=== PATIENT | male | born 1980 | race Caucasian/White ===

== ENCOUNTER 2025-01-07 23:15 | Inpatient (IN) | payer MEDICARE, SELFPAY ==
[2025-01-07] VITALS (22 sets, daily range): BP systolic 74–119; BP diastolic 58–89; BMI 15.8
[2025-01-07 21:19] LABS: Glucose - Point of Care 99 mg/dl (70-99)
--- NOTE | 2025-01-07 21:23 | EDRN ---
Pt arrives from triage hypoxic in the 70s and very lethargic. Dr. Munguia at bedside, decision made by Dr. Munguia that it is best to intubate to protect pt airway. 20 of etomidate and 150 of succ given. 7.5 ett and 22.5 at the lip.
[2025-01-07 21:31] LABS: INR 0.89; PT 12.5 Sec (11.4-14.6)
[2025-01-07 21:32] LABS: APTT 36.2 Sec (23.4-35.0)
[2025-01-07 21:34] LABS: ALT (SGPT) < 10 U/L (0-50); AST (SGOT) 21 U/L (17-59); Albumin 3.5 g/dl (3.5-5.0); Alkaline Phosphatase 55 U/L (38-126); Blood Urea Nitrogen 30 mg/dl (9-20); Calcium 8.8 mg/dl (8.4-10.2); Carbon Dioxide 25 mmol/L (22-30); Chloride 93 mmol/L (98-107); Estimated Creatinine Clearance 67 ml/min; Glucose 97 mg/dl (70-99); Potassium 4.9 mmol/L (3.5-5.1); Sodium 126 mmol/L (135-145); Total Bilirubin 0.5 mg/dl (0.2-1.3); Total Protein 6.4 g/dl (6.3-8.2); eGFR > 60.00
--- NOTE | 2025-01-07 21:34 | ED.GENMED ---
History of Present Illness
General
Chief Complaint: Fever
Source: patient and family
Exam Limitations: altered mental status
Time Seen by Provider: 01/07/25 21:03
Nursing documentation reviewed up to this point in time: agreed with
History of Present Illness
History of Present Illness:
44-year-old male brought in through triage with father and 2 daughters patient and family visiting from [place] they have been sleeping at a campground for a few days patient has been sick for 3 days--here he is febrile hypoxic confused, combative
at times
Per the family he is a smoker, has seizure disorder, has not had seizures in many years they deny any drug overdose, though he does smoke marijuana
He was placed on supplemental oxygen, due to decreased mental status was intubated for airway protection
Past History
Past History
ED Past Medical History: Seizures
Social History
Tobacco: Smoker
Alcohol: None
Drug: Marijuana
Living: with family
Employment: Employed
Review of Systems
Review of Systems
Unable to obtain full review of systems at this time due to: due to acuity
Other source history: family
Phy Exam
Physical Exam
Physical Exam:
Physical Exam
General: Obtunded at times and agitated 44 male
Neck: No tongue bite, pupils 3-4 mm OU
Heart: Tachycardia
Lungs: Rhonchi left greater than
Abdomen: Nontender
Neuro: Confused, moves all extremities
Skin: no rash
Psychiatric: Agitated at times
Extremities: Cyanotic
Sepsis
Sepsis Screening
Sepsis Assessment: Sepsis
Sepsis Screen
Sepsis Screen: Sepsis
Date: 01/07/25
Time: 22:22
Course
Orders/Labs/Results
Orders:
Orders
01/07/25 21:09
Cardiac Monitoring- Treatment ONCE
IV Insert/Care/Rem.- Treatment PRN
Urinalysis Reflex To Culture Urgent
0.9% Sodium Chloride 1000 ml [Nss] 1,000 ml IV BOLUS
Ipratropium/Albuterol Sulfate [Duoneb] 3 ml INH R NOW STA
01/07/25 21:10
Electrocardiogram (*1) Urgent
Reason for Study: Other
Other Reason for Exam: sepsis
EKG- Treatment ONCE
CR Chest Portable - 1 View Urgent
Comment:
Reason For Exam: fever
Reason Study Needs to be Portable: Unable to Transport
01/07/25 21:12
Comprehensive Metabolic Panel Urgent
Depakane Urgent
Comment: ADD ON
Lactic Acid Q4H
Comment: CANCEL 2nd LACTIC ACID IF 1st LACTIC ACID IS LESS THAN 2
PTT Urgent
Prothrombin Time Urgent
Triglycerides Urgent
Blood Culture Q30M
LORIN Source: Blood/Venous
Specimen Description:
Blood Culture Q30M
LORIN Source: Blood/Venous
Specimen Description:
Influenza A+B Rapid Molecular Urgent
LORIN Source: Nasal Swab
Specimen Description:
01/07/25 21:18
Propofol 1,000,000 Mcg/100 ml [Diprivan] 1,000,000 mcg in 100 ml .ROUTE .STK-MED
Propofol [Diprivan] 20 ml .ROUTE .STK-MED
01/07/25 21:25
Piperacillin/Tazo 3.375 Gram [Zosyn] 3.375 gram in 50 ml IV NOW
01/07/25 21:27
Etomidate [Amidate 20 mg] 20 mg IV NOW STA
Succinylcholine Chloride [Anectine] 150 mg IV NOW STA
EEG [Rapid Point of Care EEG (ED/ICU ONLY)] Q1H
Indications for use:: Altered Mental Status
01/07/25 21:28
Gonzalez Placement- Treatment ONCE
Reason for insertion: I&O's Critical Care
01/07/25 21:29
Rectal Temp- Treatment ONCE
Drug Screen, Urine [Urine Drug Abuse Screen] Urgent
Urinalysis Reflex To Culture Urgent
Acetaminophen [Tylenol/Feverall] 650 mg RECTAL NOW STA
01/07/25 21:30
Propofol 1,000,000 Mcg/100 ml [Diprivan] 1,000,000 mcg in 100 ml IV PER PROTOCOL
Indication:: Deep Sedation
Begin Infusion:: Now
Goal:: RASS -3 to -5 or BIS < 60 or ventilator synchrony
Maximum dose in mcg/kg/min:: 50
Initial Dose in mcg/kg/min:: 20
Titration Instructions:: Titrate by 5-10 mcg/kg/min every 5 minutes until RASS -3 to -5 or
Titration Instructions:: BIS < 60 or ventilator synchrony is met.
Titration Instructions:: Administer analgesia bolus dose(s) & titrate analgesia prior to
Titration Instructions:: adjusting sedation.
Taper Instructions:: If RASS is at or below goal for 4 consecutive hours decrease infusion by
Taper Instructions:: 5-10 mcg/kg/min every 2 hours. Do not wean infusion to off if patient is
Taper Instructions:: receiving a continuous NMBA or has received bolus NMBA with the past 3 hrs
Over-sedation Instructions:: If BIS < 40 and synchronous with ventilator decrease infusion by
Over-sedation Instructions:: 5-10 mcg/kg/min every 2 hour until BIS = 40-60.
Notify provider:: immediately if patient exhibits signs/symptoms of propofol-related
Notify provider:: infusion syndrome.
Additional Instructions:: Patient MUST be mechanically ventilated and MUST receive analgesia.
Nursing to Place Non Medication Order As Directed
Physician Order: ogt
01/07/25 21:31
CT Head W/o Iv Contrast Urgent
Comment:
Reason For Exam: coma
Ventilator Initial Settings [RESP] Urgent
01/07/25 21:33
COVID-19 Antigen Urgent
Source: Nasal Swab
01/07/25 21:46
Arterial Blood Gas Urgent
%Oxygen/Room Air: nrb
01/07/25 21:49
Complete Blood Count/With Diff Urgent
01/07/25 21:53
Vancomycin 1 Gram/200 ml [Vancocin] 1 gram in 200 ml IV NOW
01/07/25 21:59
Add On- LAB Urgent
Tests Added?: Depakene
01/07/25 22:09
CR Chest Portable - 1 View Urgent
Comment:
Reason For Exam: ogt placement
Reason Study Needs to be Portable: Patient Unstable
01/07/25 22:[address] Non Medication Order As Directed
Physician Order: please complete med rec thanks
01/07/25 22:20
Add On- LAB Routine
Tests Added?: magnesium and phos
01/08/25 01:15
Lactic Acid Q4H
Comment: CANCEL 2nd LACTIC ACID IF 1st LACTIC ACID IS LESS THAN 2
01/08/25 08:00
Polyethylene Glycol Powder [Miralax] 17 grams TUBE DAILY
01/10/25 06:00
Triglycerides Q3D
Comment: every 72 hours while patient is on propofol
01/13/25 06:00
Triglycerides Q3D
Comment: every 72 hours while patient is on propofol
01/16/25 06:00
Triglycerides Q3D
Comment: every 72 hours while patient is on propofol
Abnormal Lab Results
01/07/25 01/07/25
21:12 21:46
APTT 36.2 H Sec
(23.4-35.0)
pO2 236 H mmHg
(83-108)
ABG O2 Sat (Measured) 99.6 H %
(94-98)
Sodium 126 L mmol/L
(135-145)
Chloride 93 L mmol/L
(98-107)
BUN 30 H mg/dl
(9-20)
01/07/25 21:12
Vital Signs
Initial and Last Documented VS:
Initial Vital Signs
Temp Pulse Resp BP Pulse Ox
99.9 F 124 22 113/86 71
01/07/25 20:58 01/07/25 20:58 01/07/25 20:58 01/07/25 20:58 01/07/25 20:58
Last Documented Vital Signs
Temp Pulse Resp BP Pulse Ox
99.9 F 117 24 119/89 100
01/07/25 20:58 01/07/25 21:15 01/07/25 21:15 01/07/25 21:07 01/07/25 22:00
Procedures
Intubations
Procedure completed by: adna/chava Ring
Method of Intubation: glidescope
Tube size (cm): 8.0
Placement confirmed by: auscutation
Breath sounds after intubation: equal
Intubation complications: no complications
MDM/Problems Addressed
Differential Diagnosis Includes:
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
MDM/Problems Addressed:
Confusion hypoxia
Chronic conditions affecting care: Neurological disorder
Acute Exacerbation and/or Progression of Chronic Illness: Neurological disorder
*Pulse Oximetry
Patient hypoxic: yes
Comment: 71
*EKG
Interpreted by ED Provider?: Yes
Interpretation: abnormal
Comparison EKG: no comparison EKG present
Heart Rate: 78
Rate: normal
Rhythm: sinus
Ischemia: non-specific ST changes
*Lead Painter Interpretation
Rate: normal
Interpretation: normal
Heart Rate: 88
*Critical Care Note
Total Time (30-74mins, 75-104mins- exclusive of procedures): 32
Update Note
Update Note:
10 PM chest x-ray noted reviewed with radiology left upper lobe infiltrate, reviewed with family they do not believe he has any allergies medications reviewed he does take valproic acid
ED Attending Note
-
Portions of this chart may have been created with voice recognition software.� Occasional wrong word or��sound alike� substitutions may have occurred due to the inherent limitations of voice recognition software.
Discharge Plan
Departure
Patient Disposition: Admit
Date of Disposition: 01/07/25
Time of Disposition: 22:03
Admit to: ICU
Presentation/result/management discussed w/ accepting MD/DO: Hospitalist
Patient with high blood pressure during this ER visit?: No
Condition: Serious
Covid-19: Negative COVID-19
Discharge Problem:
Acute hypoxic respiratory failure
Interventions
Interventions:
*Risk Screen - Suicide Last Done: 01/07/25 20:58
*General Assessment Last Done: 01/07/25 20:58
*Neglect/Abuse Screening Last Done: 01/07/25 20:58
Discharge Date and Time
Print Language: MALTESE
[2025-01-07] MEDS: TYLENOL/FEVERALL 650 MG RECTAL (21:36)
[2025-01-07] MEDS: NSS 1000 IV (21:38)
[2025-01-07 21:45] LABS: Lactic Acid 1.1 mmol/L (0.7-2.0)
[2025-01-07 21:57] LABS: B.E. -0.2 mmol/L; HCO3 25.9 mmol/L (21-28); O2 Saturation % 99.6 % (94-98); PCO2 47 mmHg (35-48); PO2 236 mmHg (83-108); pH 7.35 (7.35-7.45)
[2025-01-07] MEDS: DUONEB 3 ML INH (21:59)
[2025-01-07] MEDS: ZOSYN 50 IV (22:12)
[2025-01-07] MEDS: ANECTINE 150 MG IV (22:13)
--- NOTE | 2025-01-07 22:13 | HPS.HSE ---
Family Physician
-
Family Physician:
Chief Complaint
-
fever, cough, congestion
History of Present Illness
44-year-old male with PMH for seizure presented to us with cough,congestion and fever for past three days. he was weak and tired. today he was incontinent of diarrhea. patient is from [place] and was camping with family here in [place] for past three
days. he vomited couple times. ROS limited as patient is intubated. As per daughters, they were able to pull and tick from him today.
Per the family he is a smoker, has seizure disorder, has not had seizures in many years they deny any drug overdose, though he does smoke marijuana
He was placed on supplemental oxygen, due to decreased mental status was intubated for airway protection.
Patient received Vanco and Zosyn in ER. blood culture sent from ER.
Medical History
Past Medical History
Past Medical History: Reports Other
Additional Past Medical History:
Seizure
Past Surgical History: Reports None
Social History
Tobacco: Smoker (More than 2 pack)
Alcohol: None
Drug: Marijuana
Living: With Family
Family History
Family History: Not pertinent
Allergies / Home Medications
Allergies reflects when Allergies were last updated in [facility].
Home Medications with original date entered in [facility]
Allergy/Medication List:
Allergies
Allergy/AdvReac Type Severity Reaction Status Date / Time
No Known Allergies Allergy Unverified 01/07/25 20:58
Review of Systems
-
Unable to obtain full review of systems at this time due to: Patient Intubation
Physical Exam
Vital Signs
Vital Signs
Temp Pulse Resp BP Pulse Ox
99.9 F 117 24 119/89 100
01/07/25 20:58 01/07/25 21:15 01/07/25 21:15 01/07/25 21:07 01/07/25 22:00
Physical Exam
General: Well Developed, Well Nourished and No Apparent Distress
HEENT: NormoCephalic, Moist mucous membranes and Atraumatic
Respiratory: Rales and Rhonchi
Cardiac: S1/S2 and Regular Rhythm; No Murmur or Rub
GI: Soft, Non Tender, Non Distended and Normal Bowel Sounds; No Organomegaly
Rectal: Deferred by Provider
Musculoskeletal: No Clubbing, No Cyanosis and No Edema
Skin: No Rash
Neuro: AO x 3 and Nonfocal/grossly intact
Psych: Calm
Laboratory Results
-
01/07/25 21:12
Laboratory Results
PT 12.5 Sec (11.4-14.6) 01/07/25 21:12
INR 0.89 01/07/25 21:12
APTT 36.2 Sec (23.4-35.0) H 01/07/25 21:12
pH 7.35 (7.35-7.45) 01/07/25 21:46
pCO2 47 mmHg (35-48) 01/07/25 21:46
pO2 236 mmHg (83-108) H 01/07/25 21:46
HCO3 25.9 mmol/L (21-28) 01/07/25 21:46
Lactic Acid 1.1 mmol/L (0.7-2.0) 01/07/25 21:12
Total Bilirubin 0.5 mg/dl (0.2-1.3) 01/07/25 21:12
AST 21 U/L (17-59) 01/07/25 21:12
ALT < 10 U/L (0-50) 01/07/25 21:12
Alkaline Phosphatase 55 U/L (38-126) 01/07/25 21:12
Data Reviewed
-
Diagnostic Radiology: Report Reviewed by me
Lab Data: Labs Reviewed by me
Impression/Plan
-
# Acute hypoxic respiratory failure secondary to pneumonia
#possible COPD exacerbation
#concern for lyme disease
- Patient is intubated
- COVID pending, influenza pending
-Blood culture sent from ER
- Chest x-ray with impression of Probable left upper lobe pneumonia. Recommend follow-up imaging after treatment to rule out underlying mass.
- IV propofol continued
- Vancomycin continued
- Doxy added
- Urine Legionella, strep pneumonia
-solu Medrol 50mg bid
-ID consulted.
# Hyponatremia likely hypovolemic
- Normal saline continued
- BMP in a.m.
# History of seizure
#depression/anxiety
-EEG ordered
-CT head pending
-Depacon iv continued
- bupropion, Fycompa, venlafaxine and zonisamide continued via NGT
# DVT prophylaxis
-Lovenox subcu
# CODE STATUS full code
-
[2025-01-07 22:15] LABS: COVID-19 Antigen Negative (Negative)
[2025-01-07 22:36] LABS: Phosphorus 2.8 mg/dl (2.5-4.5); Triglycerides 122 mg/dl (10-149)
--- NOTE | 2025-01-07 22:44 | W.PN.UPDATE ---
Update Note
Progress Note Update
Patient seen in conjunction with [facility]. I agree the findings applicable. I concur with assessment and plan listed otherwise.
Briefly, this is a 44-year-old male with past medical history significant for seizure disorder and multiple antiepileptic drugs, mood disorder, tobacco use not on home O2, smokes marijuana and vapes as well, no alcohol with his visiting family from
89 presents to the emergency department with fever, hypoxic respiratory distress and altered mental status.
According to family patient arrived from [place] in [facility] about 4 days ago. Over the last open arrival he stayed and he can out at night. The following day he started becoming anorexic and lethargic. Family reports increasing
productive cough. He then became more lethargic and somnolent although still attempted to smoke and vape. They were not able to measure any fevers or chills at home. He did not have any vomiting.. Continue to take his usual seizure medications
and did not see any seizure-like activity. He had multiple episodes also himself report family did not report profuse diarrhea. They did note no significant intake for the last 4 days. No melena or medic easier.
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
He arrived in the emergency department confused hypoxic and had a fever to 102.
He was combative yet somnolent and likely intubated for airway protection and to allow for appropriate treatment.
Initial gas was left the intubation and was 7.3 5/47/236/20 5.9.
Blood pressure was 90 systolic, heart rate 117 and was satting 100% on 100% ventilation. Temp was 98.9.
Chest x-ray shows a left upper lobe infiltrate. LFTs were normal. Sodium was 126 directly electrolytes are normal. BUN is elevated 30 creatinine 1.0 glucose 90.
CBC is pending.
Assessment and plan
44-year-old with history of seizures presenting to the emergency department with fever confusion and hypoxic respiratory distress s/p intubation. He has been camping in [place] for the last 4 days and has had recent productive cough shortness
of breath lethargy and confusion. Come to the emergency department. Tick exposure noted by family. History of seizures with last seizure over 2 years ago and he has been stable on his current medications for over 5 years. He has been intubated
before in the setting of a seizure but not for respiratory distress. He has pneumonia on x-ray although minimal and in the left upper lobe.
Hypoxic respiratory failure -secondary to pneumonia
- S/p intubation, admit to ICU
- Blood cultures
- Urine Legionella antigen as well as urine streptococcal antigen
- MRSA swab
- Treat pneumonia with prospective antibiotics vancomycin cefepime and doxycycline
- Influenza negative, COVID-negative
- Will treat presumed COPD exacerbation in this setting with Solu-Medrol 50 IV twice daily
- DuoNebs [id number] and albuterol as needed for now
Altered mental status -suspect secondary to viral illness, does have history of seizure and possible substance use
- Currently sedated on propofol
- Consider EEG
- CT head pending
- Urine drug screen
- Serum valproate acid has been checked
- unlikely meningitis but vanc/ cefepime okay for possible meningitis, no need for additional
- doxycycline iv
- Lyme PCR and titers
- Consider peripheral smear
- ID consultation
Seizure D/O -no evidence of active seizures, currently on propofol for sedation
- Continue his home therapy including Depakote, zonisamide and fycompa per NG for now
- checking depakote levels
Dehydration -patient has not eaten in about 4 days and BUN 30. Sodium 126
- Aggressive hydration, will give 2 L bolus and continue with NS at 125 ml/hr bolus as needed
- Repeat sodium in in 6 hours to evaluate for worsening hyponatremia
- Urine osm
DVT prophylaxis�Lovenox subcu
CODE STATUS full code
[2025-01-07] MEDS: AMIDATE 20 MG IV (22:46)
[2025-01-07] MEDS: NSS 500 IV (23:14)
[2025-01-07] MEDS: LEVOPHED 250 IV (23:34)
[2025-01-07 23:46] LABS: Hematocrit 32.3 % (39.0-52.0); Hemoglobin 11.5 g/dL (13.0-18.0); Mean Corp Hgb Conc. 35.6 g/dL (33.0-37.0); Mean Corpuscular Hgb 33.1 pg (27.0-31.0); Mean Corpuscular Volume 93.1 fL (80.0-94.0); Red Blood Cell Count 3.47 10^6/uL (4.70-6.10); Red Cell Dist. Width 14.8 % (11.5-14.5); White Blood Cell Count 4.1 10^3/uL (4.8-10.8)
[2025-01-07 23:57] LABS: Depakane 169.2 ug/ml (50.0-120.0)
[2025-01-08] VITALS (12 sets, daily range): BP systolic 89–147; BP diastolic 61–103; BMI 16.1
[2025-01-08 00:06] LABS: Glucose - Point of Care 113 mg/dl (70-99)
[2025-01-08 00:16] LABS: Absolute Neutrophils -Man Diff 2.6 10^3/uL (1.4-6.5); Atypical Lymphocytes 1 %; Band Neutrophils 33 % (0-3); Lymphocytes 15 % (20-51); Metamyelocytes 2 % (-); Monocytes 18 % (2-9); Platelets Checked Yes; Segmented Neutrophils 31 % (42-75); Total Cells Counted 100; Toxic Granulation 2+
[2025-01-08 00:18] LABS: Mean Platelet Volume 12.7 fL (7.4-10.4); Normal RBC Morphology Yes; Platelet Count 57 10^3/uL (130-400); Vacuolated Segs 2+
[2025-01-08] MEDS: DIPRIVAN 100 IV ×3 (00:33→17:08)
[2025-01-08] MEDS: SUBLIMAZE 50 MCG IV ×4 (00:33→19:55)
[2025-01-08] MEDS: SUBLIMAZE 100 IV (00:40)
[2025-01-08] MEDS: SOLU-MEDROL PF 50 MG IV ×2 (00:54→12:08)
[2025-01-08] MEDS: VIBRAMYCIN 260 MG IV ×2 (00:59→11:01)
--- NOTE | 2025-01-08 01:00 | PTCARENOTE ---
rec`d pt from ED at 0100 intubated and sedated on prop, fent, levo. + cough and gag. cerabell started by ED. 0%. PERRLA at a 3mm. afebrile. +pulses. a line placed. PIVS flushed and patent. coarse throughout. 7.5 ett @24. vent settings A/c-
14/500/50%/5 of peep. OGT to WINNIE. johnson draining paco urine. restraints. safe environment maintained.
[2025-01-08] MEDS: NSS 1000 IV ×2 (01:06→07:37)
--- NOTE | 2025-01-08 01:42 | W.PN.UPDATE ---
Update Note
Progress Note Update
Procedure Note: Arterial Line�
� Right Wrist Arrow 20 (09/29)�
Diagnosis:��ACUTE RESPIRATORY FAILURE
IV Line Comments: Uneventful Procedure�
Waldemar's test completed pre-procedure: Yes�
A-Line Comments: Sterile technique as per standard protocol, Ultrasound guided insertion�
Functioning A-line in situ: Yes�
A-line Insertion Start Time:��0125
A-line in at:��0140
--- NOTE | 2025-01-08 01:45 | W.PN.UPDATE ---
Update Note
Progress Note Update
Valproic acid level 169. Valproic acid currently on hold.�
[2025-01-08] MEDS: VANCOCIN 200 IV ×2 (02:05→09:06)
[2025-01-08 04:30] LABS: Urine Albumin 1+ (Neg - Trace); Urine Bilirubin Negative (Negative); Urine Character Clear (Clear); Urine Color Yellow; Urine Glucose Negative (Negative); Urine Ketone Negative (Negative); Urine Leukocyte Negative (Negative); Urine Nitrite Negative (Negative); Urine Occult Blood Negative (Negative); Urine Specific Gravity 1.015 (<1.030); Urine Urobilinogen 1+ (Neg - 1+)
[2025-01-08 04:36] LABS: B.E. -1.7 mmol/L; HCO3 24.7 mmol/L (21-28); Ionized Calcium 1.24 mMOL/L (1.15-1.33); O2 Saturation % 99.2 % (94-98); PCO2 48 mmHg (35-48); PO2 124 mmHg (83-108); Potassium 4.2 mMOL/L (3.5-5.1); Sodium 124 mMOL/L (136-145); pH 7.32 (7.35-7.45)
[2025-01-08 04:39] LABS: Amphetamines Negative (Negative); Barbiturates Negative (Negative); Benzodiazepines Positive (Negative); Buprenorphine Negative (Negative); Cocaine Negative (Negative); Marijuana Positive (Negative); Methadone Negative (Negative); Methamphetamines Negative (Negative); Opiates Negative (Negative); Phencyclidine Negative (Negative); Tricyclic Antidepressants Negative (Negative)
[2025-01-08 04:57] LABS: Hematocrit 31.2 % (39.0-52.0); Hemoglobin 11.1 g/dL (13.0-18.0); Mean Corp Hgb Conc. 35.6 g/dL (33.0-37.0); Mean Corpuscular Hgb 33.5 pg (27.0-31.0); Mean Corpuscular Volume 94.3 fL (80.0-94.0); Mean Platelet Volume 11.6 fL (7.4-10.4); Platelet Count 44 10^3/uL (130-400); Red Blood Cell Count 3.31 10^6/uL (4.70-6.10); Red Cell Dist. Width 14.6 % (11.5-14.5); White Blood Cell Count 3.3 10^3/uL (4.8-10.8)
[2025-01-08 05:10] LABS: Blood Urea Nitrogen 23 mg/dl (9-20); Carbon Dioxide 25 mmol/L (22-30); Chloride 101 mmol/L (98-107); Estimated Creatinine Clearance 84 ml/min; Glucose 115 mg/dl (70-99); Potassium 4.4 mmol/L (3.5-5.1); Sodium 129 mmol/L (135-145); eGFR > 60.00
[2025-01-08 05:26] LABS: Depakane 124.9 ug/ml (50.0-120.0)
[2025-01-08] MEDS: STERILE WATER FOR INJECTION 10 ML IV ×3 (05:34→17:09)
[2025-01-08] MEDS: MAXIPIME 1000 MG IV ×3 (05:34→17:09)
[2025-01-08 06:23] LABS: Urine Amorphous Seen; Urine Squamous Cell >30 /LPF (Few)
[2025-01-08 06:24] LABS: Urine Mucus Moderate
[2025-01-08 06:26] LABS: Urine Bacteria Moderate (Negative)
[2025-01-08] MEDS: EFFEXOR XR 150 MG PO (07:37)
[2025-01-08] MEDS: MIRALAX 17 GRAMS TUBE (07:37)
[2025-01-08] MEDS: PROTONIX IV 40 MG IV (07:37)
[2025-01-08] MEDS: NSS (PRESERVATIVE FREE) 10 ML IV (07:37)
--- NOTE | 2025-01-08 08:17 | CON.INTV ---
Consultation
Consultation Request
Date/Time Consultation Requested: 01/07/20252246
Date/Time Consultation Performed: 01/08/2025810
Requesting Provider: MICH Funes
Performing Provider: Dr. Pedersen
Reason for Consultation: AMS/Intubated
Medical History
-
Chief Complaint: Slurred speech, weakness and SOB
History of Present Illness:
44-year-old tobacco smoker male with a past medical history of seizure disorder who presented with slurred speech, weakness and shortness of breath for 3 days. Patient is from [place] and was camping with family here in [place] for the past 3
days. Per documentation, the daughters had removed a tick from the patient on the day prior to arrival, however unclear if the tick was engorged or not. The patient has a known seizure disorder on several AEDs, and has not had seizures in many
years and he does not use illicit drugs although he does smoke marijuana. In the ER he initially was afebrile to 99.9 �F, pulse rate 124, respiratory rate 22, BP 113/86 and saturating 71% on room air. Patient had to be intubated due to continued
altered mental status for airway protection purposes. Initial labs showed leukopenia to 4.1, Hb 11.5, platelet count 57, 33% bands, serum sodium 126, urinalysis with no signs of UTI, and urine drug screen for marijuana + benzodiazepines. Valproic
acid level was drawn and found to be in toxic range at 169.2 ug/ml. Urine and blood cultures collected. Initial CXR showed suspected left upper lobe pneumonia. In the ER he was given a total of 1.5 L NS 0.9%, Zosyn, DuoNebs and Tylenol. Given
that he was intubated, he was admitted to the ICU for further care and Pediatric Licensed Practical Nurse services consulted for additional management/recommendations.
Patient was seen and evaluated this morning. Remains intubated on 16/500/5/40% with PIP 22 cmH2O, VTe 497 cc and breathing at 16 breaths/min. Currently saturating 98%, heart rate 55, BP via A-line 141/81 and end-tidal CO2 21. Currently sedated on
propofol at 30 mcg/kg/min and fentanyl at 25 mcg/hr. Also on Levophed at 1 mcg/min. Ceribell device attached to his head showing 0% burden, which it has been showing 0% since the Ceribell was attached last night.
PMHx: Seizure disorder, tobacco use disorder
PSHx: Noncontributory
Past Medical History
Past Medical History: Other (Above as per HPI)
Past Surgical History: Other (Above as per HPI)
Social History
Tobacco: Smoker
Alcohol: None
Drug: Marijuana
Living: With Family
Family History
Family History: Reviewed & Not Pertinent
Allergies / Home Medications
Allergies
Allergy/AdvReac Type Severity Reaction Status Date / Time
No Known Allergies Allergy Unverified 01/07/25 20:58
Home Medications
�Medication �Instructions �Recorded �Confirmed �Last Taken �Type
bupropion HCl 200 mg tablet,12 hr 200 mg PO DAILY 01/07/25 01/07/25 Unknown History
sustained-release
clobazam 20 mg tablet 20 mg PO HS 01/07/25 01/07/25 Unknown History
divalproex 500 mg tablet,delayed 500 mg PO BID 01/07/25 01/07/25 Unknown History
release
omeprazole 40 mg capsule,delayed 40 mg PO DAILY 01/07/25 01/07/25 Unknown History
release
perampanel 10 mg tablet (Fycompa) 10 mg PO HS 01/07/25 01/07/25 Unknown History
risperidone 2 mg tablet 2 mg PO HS 01/07/25 01/07/25 Unknown History
venlafaxine 150 mg 150 mg PO DAILY 01/07/25 01/07/25 Unknown History
capsule,extended release 24 hr
zonisamide 100 mg capsule 100 mg PO HS 01/07/25 01/07/25 Unknown History
Review of Systems
-
Unable to Obtain full review of systems at this time due to: Patient Intubation
Vitals / Labs / Diagnostic Testing
Vital Signs
Temp Pulse Resp BP Pulse Ox
98.5 F 57 16 106/75 97
01/08/25 07:20 01/08/25 08:30 01/08/25 08:30 01/08/25 01:15 01/08/25 08:30
Lab Data
01/08/25 04:27
01/08/25 04:27
Laboratory Results
01/07/25 01/07/25 01/08/25
21:12 21:46 04:27
PT 12.5
INR 0.89
APTT 36.2 H
pH 7.35 7.32 L
pCO2 47 48
pO2 236 H 124 H
HCO3 25.9 24.7
O2 Delivery Level
Microbiology
01/08/25 00:23 Urine Legionella Urinary Antigen - Final
Negative for Legionella pneumophila Serogroup 1 antigen.
A negative result does not rule out the possiblity of
Legionella infection due to other serogroups or species of
Legionella. Clinical correlation is recommended.
01/08/25 00:23 Urine Streptococcus pneumoniae Antigen (M - Final
Negative for Streptococcus pneumoniae antigen.
A negative result does not exclude infection with
Streptococcus pneumoniae. Clinical correlation is
recommended.
01/07/25 21:12 Nasal Swab Influenza Types A & B (COURTNEY) - Final
Negative for Influenza A & B, NAAT
Negative results must be combined with clinical observations
and patient history.
Nucleic Acid Amplification test (NAAT)performed on the
[employer] platform.
Diagnostic Testing:
Physical Exam
-
HEENT: Normocephalic, Anicteric and Other (ETT in place)
Cardiovascular: S1/S2, Peripheral Edema (negative) and Other (bradycardic)
Respiratory: Wheeze (negative), Rhonchi (negative), Other (Coarse breath sounds heard bilaterally) and Other (Mechanical breath sounds heard bilaterally)
GI: Soft, Non Distended and Normal Bowel Sounds
Neurology: Tremors (negative), Other (Sedated although follows commands when sedation is lowered) and Other (pupils 3mm bilaterally)
Skin: Warm and Dry
General: Respiratory Distress (negative), Chills (negative) and Sweats (negative)
Assessment
-
Assessment: 44-year-old tobacco smoker male with a past medical history of seizure disorder who presented with slurred speech, weakness and shortness of breath for 3 days. Patient is from [place] and was camping with family here in [place]
for the past 3 days. Per documentation, the daughters had removed a tick from the patient on the day prior to arrival, however unclear if the tick was engorged or not. The patient has a known seizure disorder on several AEDs, and has not had
seizures in many years and he does not use illicit drugs although he does smoke marijuana. In the ER he initially was afebrile to 99.9 �F, pulse rate 124, respiratory rate 22, BP 113/86 and saturating 71% on room air. Patient had to be intubated
due to continued altered mental status for airway protection purposes. Initial labs showed leukopenia to 4.1, Hb 11.5, platelet count 57, 33% bands, serum sodium 126, urinalysis with no signs of UTI, and urine drug screen for marijuana +
benzodiazepines. Valproic acid level was drawn and found to be in toxic range at 169.2 ug/ml. Urine and blood cultures collected. Initial CXR showed suspected left upper lobe pneumonia. In the ER he was given a total of 1.5 L NS 0.9%, Zosyn,
DuoNebs and Tylenol. Given that he was intubated, he was admitted to the ICU for further care and Pediatric Licensed Practical Nurse services consulted for additional management/recommendations.
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
Impression:
#Acute respiratory failure with hypoxia + hypercapnia requiring mechanical ventilation
#Suspected left-sided CAP (?aspiration given his AMS)
#Pancytopenia with significant bandemia at 33% on admission
#Hypotonic hyponatremia
#Vomiting/diarrhea
#Seizure disorder with supratherapeutic/toxic valproic acid levels
#Depression/anxiety
#Tick found on body (unclear if engorged or not and no reports of signs of targetoid lesion)
#Tobacco use
Plan:
- Patient initially was hypoxic down to 71% and encephalopathic, hence he was intubated for airway protection
- Imaging today (01/08) shows left basilar opacification although initial CXR showed suspected multifocal small patchy opacities (MIS/RUL)
- Continue with mechanical ventilation with daily SAT/SBT if clinically appropriate
- Maintain plateau pressure <30 and titrate FiO2 + PEEP to keep SpO2 >90-94%
- Continue aspiration precautions; keep HOB >30-45�
- prn nebulized bronchodilators - not currently bronchospastic
- Oropharyngeal + deep ETT suctioning with subglottic as needed
- Daily CXR + blood gas
- Daily vent adjustments as needed based on blood gas and SaO2
- Low level of sedation with goal RASS as 0 to -2
- Patient is currently not wheezing and unclear if he has COPD as there are no prior spirometry/PFT studies for me to review; also unable to get additional history details from the patient himself given his acute clinical status - -> patient is
currently on Solu-Medrol at 50 mg IV q12hr. continue for now however once he shows signs of clinical improvement, will rapidly taper this off
- Continue with broad-spectrum antibiotics with cefepime + vancomycin and doxycycline
- Follow-up infectious workup including blood cultures x 2 (collected 01/07), urine culture (collected today), and will check a respiratory culture from ETT if a decent sample can be collected
- Follow-up Lyme serology in addition to HIV antigen/antibody combo, as well Ehrlichia and Anaplasma PCR
- ID consulted - recs apprecoated
- Continue AEDs except for valproic acid given its toxic levels, which we will continue to trend; I will consult neurology; family needs to bring in his Fycompa
- If patient does not awaken as expected, would consider rechecking EEG (conventional perhaps), and consider LP +/- MRI brain, although he does have metallic screws in his left and right glenoid so do not think the MRI would be feasible
- Maintain SpO2 >90-94%
- Maintain MAP>65
- Nicotine patch
- Replete electrolytes with K>4, Mg>2
- Maintain euglycemia with goal BG 140-180; check A1C
- Trend H/H and transfuse if needed to keep Hb>7g/dL; keep plt>20k, unless there is concern for bleeding then keep plt>50k
- prn nebulized bronchodilators - not currently bronchospastic
- Early nutrition
- DVT ppx: SCDs given his pancytopenia with significant thrombocytopenia
Code status: Full code
Continue ICU level of care for this critically ill patient
Critical care statement: A total of 40 minutes of critical care time was provided for this patient today. This includes management of unstable vital signs, evaluation of the patient at bedside, reviewing the patient's pertinent medical records
including radiographs, microbiology, laboratory evaluations, and discussion with primary team, consultants, pharmacy, nutrition, physical therapy, case management, charge nurse, critical care nursing, and respiratory therapy.
--- NOTE | 2025-01-08 09:01 | PTCARENOTE ---
pt received from previous rn- ett to vent, rass -4 as per order. pts pupils 3 and sluggish, weak cough. cerebell on, no activity noted see flowsheet. right radial ruth zeroed and functioning. propofol, fent, levo and ivf all continue as per order.
pt sb to nsr. all safety precautions in place.
--- NOTE | 2025-01-08 10:57 | CON.NEURO ---
Neuro Assessment/Plan
Assessment
Sudden change in mental status associated with upper respiratory tract symptomatology and hyponatremia with a prior history of epilepsy
Probably secondary to toxic metabolic encephalopathy potentially worsened by overdose of valproic acid
Expect improvement over time with discontinuance of sedating agents
Plan
Restart all antiseizure medications with the exception of valproic acid. Specifically restart perampanel 10 mg, zonisamide 100 mg at bedtime, clobazam 20 mg at bedtime
Attempt to reduce sedation if at all possible
Provide lorazepam if seizure greater than 10 minutes in duration
Provide patient as outpatient with midazolam nasal spray 1 spray in 1 nostril if seizure as outpatient
Will follow peripherally.
Consultation
Order
Date of Consultation: 01/08/25
Requesting Provider: Int[employer]iv[employer]
Reason for Consult: Change in mental status
Subjective/Objective
Subjective Data
Date of Service: January 08, 2025
Patient was reportedly camping and is described as having a upper respiratory tract illness 3 days prior to presentation. The patient was described as having a cough, congestion, fever and on the day of admission, incontinent of diarrhea. He was
found to have a tic on his skin by family. After presentation, the patient was intubated for airway protection. The rapid EEG monitoring device was placed on the patient to evaluate for status epilepticus and was unremarkable.
There is a reported history of epilepsy although the patient is reported to not have had seizures for at least 2 years, with use of current medications for more than 5 years.
Objective Data
Vital Signs
Temp Pulse Resp BP Pulse Ox
36.9 C 57 16 106/75 97
01/08/25 07:20 01/08/25 08:30 01/08/25 08:30 01/08/25 01:15 01/08/25 08:30
Lab Results
01/08/25 04:27
01/08/25 04:27
PT 12.5 Sec (11.4-14.6) 01/07/25 21:12
INR 0.89 01/07/25 21:12
APTT 36.2 Sec (23.4-35.0) H 01/07/25 21:12
Sodium 129 mmol/L (135-145) L 01/08/25 04:27
Potassium 4.4 mmol/L (3.5-5.1) 01/08/25 04:27
BUN 23 mg/dl (9-20) H 01/08/25 04:27
Glucose 115 mg/dl (70-99) H 01/08/25 04:27
Calcium 8.0 mg/dl (8.4-10.2) L 01/08/25 04:27
Phosphorus 2.8 mg/dl (2.5-4.5) 01/07/25 21:12
Ur Buprenorphine Negative (Negative) 01/08/25 00:01
Patient Allergies
No Known Allergies Allergy (Unverified 01/07/25 20:58)
Review of Systems
-
Unable to obtain full review of systems at this time due to: Patient Intubation
History Source: Patient
All other systems: Reviewed and negative
Physical Exam
-
General: No Apparent Distress, Intubated and Appears Stated Age
Eyes: OU Absent Papilledema, Able to visualize OU, Round OU and [place] Conjunctivae
HEENT: Anicteric and Moist Mucous Membranes
Neck: Full Range of Motion
Respiratory: No Dyspnea
Cardiac: No JVD
GI: Non-distended
Skin: Unremarkable
Extremities: No Clubbing, No Cyanosis and No Edema
Psych: Unable to Assess
Extended Neurological Exam
Mood & Affect: Unable to Assess
Attention Span & Concentration: Awake and Unresponsive to Verbal Stimuli; Negative Alert, Interactive or Unresponsive to Physical Stimuli
Memory: Unable to Assess
Tremor: Hand Tremor Absent and Head Tremor Absent
Involuntary Movement: None
Speech: Unable to Assess
Cranial Nerve II: Left Eye: Pupillary Reactivity Unremarkable, Pupillary Size Unremarkable and Unable to Assess Visual [place]
Cranial Nerve II: Right Eye: Pupillary Reactivity Unremarkable, Pupillary Size Unremarkable and Unable to Assess Visual [place]
Cranial Nerves III, IV, : Extraocular Movement: Absent Doll's Eyes
Cranial Nerve V: Facial Sensation: Unable to Assess
Cranial Nerve VII: Facial Symmetry: Normal Facial Symmetry
Cranial Nerves IX, X: Palate Movement: Unable to Assess
Cranial Nerve XI: Shoulder Shrug: Unremarkable (With indirect testing)
Cranial Nerve XII: Tongue Protusion: Unable to Assess
Muscle Strength, Overall: Spontaneously Moves (All extremities)
Muscle Bulk & Tone: Bulk Unremarkable and Tone Unremarkable
Pronator Drift: Unable to Assess
Deep Tendon Reflexes: Trace Throughout
Cold Sensation: Unable to Assess
Vibration Sensation: Unable to Assess
Touch Sensation: Negative Withdrawal to Pain
Coordination: Unable to Assess
Babinski Sign: Absent Bilaterally
Gait & Station: Unable to Assess
Data Reviewed
-
CT Head: Report Reviewed
Labs: Report Reviewed
Reviewed with: Physician and Family
Old Records: Summarized
Medications
-
Active Medications
Generic Name Dose Route Start Last Admin
Trade Name Freq PRN Reason Stop Dose Admin
Cefepime HCl 1,000 mg 01/08/25 06:00 01/08/25 05:34
Cefepime Hcl 1,000 Mg/11.3 Ml Vial IV 1,000 mg
Q6H MICHELLE Administration
Enoxaparin Sodium 30 mg 01/08/25 18:00
Enoxaparin Sodium 30 Mg/0.3 Ml Syringe SC 02/05/25 17:59
QPM MICHELLE
Fentanyl Citrate 50 mcg 01/08/25 00:06 01/08/25 00:33
Fentanyl (50 Mcg/Ml) 100 Mcg/2 Ml Ampul IV 01/22/25 00:05 50 mcg
[id number] PRN Administration
see protocol
Protocol
Propofol 1,000,000 mcg in 100 mls @ 0 mls/hr 01/07/25 21:30 01/08/25 09:06
Diprivan IV 100 mls
PER PROTOCOL MICHELLE Administration
Protocol
Per Protocol
Norepinephrine Bitartrate 4 mg in 250 mls @ 0 mls/hr 01/07/25 23:30 01/07/25 23:34
Levophed IV 250 mls
PER PROTOCOL MICHELLE Administration
Protocol
Per Protocol
Vancomycin HCl 1 each/ Device 0 mls @ 0 mls/hr 01/07/25 23:51
IV
PER PROTOCOL MICHELLE
Protocol
As Directed
Doxycycline Hyclate 100 mg/ 260 mls @ 260 mls/hr 01/08/25 00:00 01/08/25 00:59
Sodium Chloride IV 260 mls
Q12@0000,1200 MICHELLE Administration
Sodium Chloride 1,000 mls @ 150 mls/hr 01/07/25 23:51 01/08/25 07:37
Nss IV 1,000 mls
.Q6H40M MICHELLE Administration
Valproate Sodium 500 mg/ 55 mls @ 55 mls/hr 01/08/25 00:00 01/08/25 01:46
Sodium Chloride IV 02/05/25 00:00 Not Given
On Hold: 01/08/25 01:40 Q12@0000,1200 MICHELLE
Fentanyl Citrate 1,000 mcg in 100 mls @ 0 mls/hr 01/08/25 00:15 01/08/25 00:40
Sublimaze IV 100 mls
PER PROTOCOL MICHELLE Administration
Protocol
Per Protocol
Methylprednisolone Sodium Succinate 50 mg 01/08/25 00:30 01/08/25 00:54
Methylprednisolone Pf 125 Mg/2 Ml Vial IV 02/05/25 00:29 50 mg
Q12@0000,1200 MICHELLE Administration
Non-Formulary Medication 200 mg 01/08/25 08:00
Bupropion Hcl PO 02/05/25 07:59
On Hold: 01/08/25 08:00 DAILY MICHELLE
Non-Formulary Medication 20 mg 01/08/25 22:00
Clobazam PO 02/05/25 21:59
HS MICHELLE
Non-Formulary Medication 10 mg 01/08/25 22:00
Perampanel [Fycompa] PO 02/05/25 21:59
HS MICHELLE
Pantoprazole Sodium 40 mg 01/08/25 08:00 01/08/25 07:37
Pantoprazole Sodium 40 Mg/10 Ml Vial IV 02/05/25 07:59 40 mg
DAILY MICHELLE Administration
Polyethylene Glycol 17 grams 01/08/25 08:00 01/08/25 07:37
Polyethylene Glycol Powder 17 Grams Packet TUBE 02/05/25 07:59 17 grams
DAILY MICHELLE Administration
Polyethylene Glycol 17 grams 01/09/25 08:00
Polyethylene Glycol Powder 17 Grams Packet TUBE 02/06/25 07:59
DAILY MICHELLE
Risperidone 2 mg 01/08/25 22:00
Risperidone 2 Mg Tablet PO 02/05/25 21:59
HS MICHELLE
Sodium Chloride 0 flush 01/07/25 23:00
Sodium Chloride 0.9% (Flush) Syringe IV 02/04/25 22:59
PER PROTOCOL MICHELLE
Sodium Chloride 10 ml 01/08/25 08:00 01/08/25 07:37
Sodium Chloride 0.9% (Preservative Free) 10 Ml Vial IV 02/05/25 07:59 10 ml
DAILY MICHELLE Administration
Sterile Water 10 ml 01/08/25 06:00 01/08/25 05:34
Sterile Water For Injection 10 Ml Vial IV 02/05/25 05:59 10 ml
Q6H MICHELLE Administration
Venlafaxine HCl 150 mg 01/08/25 08:00 01/08/25 07:37
Venlafaxine 150 Mg Extended Release Capsule PO 02/05/25 07:59 150 mg
DAILY MICHELLE Administration
Zonisamide 100 mg 01/08/25 22:00
Zonisamide 100 Mg Capsule PO 02/05/25 21:59
HS MICHELLE
Home Medications
�Medication �Instructions �Recorded
bupropion HCl 200 mg tablet,12 hr 200 mg PO DAILY 01/07/25
sustained-release
clobazam 20 mg tablet 20 mg PO HS 01/07/25
divalproex 500 mg tablet,delayed 500 mg PO BID 01/07/25
release
omeprazole 40 mg capsule,delayed 40 mg PO DAILY 01/07/25
release
perampanel 10 mg tablet (Fycompa) 10 mg PO HS 01/07/25
risperidone 2 mg tablet 2 mg PO HS 01/07/25
venlafaxine 150 mg 150 mg PO DAILY 01/07/25
capsule,extended release 24 hr
zonisamide 100 mg capsule 100 mg PO HS 01/07/25
Past History
Past History
ED Past Medical History: Seizures and Psychiatric
ED Past Surgical History: Orthopedic (Right TKR, right shoulder surgery)
Social History
Tobacco: Smoker
Alcohol: None
Drug: Marijuana
Living: with family
Employment: Employed
Family History
Family History: Other (Reviewed and noncontributory)
[2025-01-08 11:04] LABS: Osmolality Serum 267 mOsm/kg (275-300)
[2025-01-08 11:11] LABS: Osmolality Urine 244 mOsm/kg (300-900)
[2025-01-08 11:30] LABS: Urine Sodium < 5 mmol/L (30-90)
--- NOTE | 2025-01-08 12:04 | CM ---
Patient intubated. Initial assessment completed with father who reports that patient lives with parents in a 1 story home with 1 step to enter. 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 No DME or in-home services. Patient has epilepsy
for the past 30 years S/P TBI. He is on disability. Has not had a seizure for 2-[address] years[address] or work. No service and no HC-POA. No PCP or Pharmacy in the area. Patent's father is staying with his sister in [facility].
Discharge POC: TBD based on medical progression. Father aware patient may need services prior to returning to [place].
--- NOTE | 2025-01-08 12:05 | CON.ID ---
Consultation
-
Date/Time Consultation Requested: January 07, 2025 2351
Date/Time Consultation Performed: January 08, 2025 1200
Requesting Provider: MICH Funes
Performing Provider: Dr. Laurie Magdaleno
Reason for Consultation: Pneumonia
Chief Complaint / Past History
Chief Complaint
Fever cough and congestion
History of Present Illness
History obtained from review of medical records since patient is currently intubated and sedated. He is a 44-year-old male with history of seizure, tobacco use, who is visiting from [place], arrived 4 days prior to admission who [facility] with complaints of cough, chest congestion, lethargy and fever. In the ER temperature 102. He is pancytopenic. Chest x-ray shows mild LLL opacity. He was intubated for airway protection. Of note patient [place].
Reportedly family pulled a tick from the patient. Patient apparently also complaining of vomiting and diarrhea.
Past History
Additional Past Medical History:
Seizure disorder
Additional Past Surgical History:
Right shoulder replacement
Left shoulder repair
Allergy History:
No Known Allergies Allergy (Unverified 01/07/25 20:58)
Medications Reviewed: Yes
Current Antibiotics:
Vancomycin
Cefepime
Doxycycline
Social History
Tobacco: Smoker
Alcohol: None
Drug: Marijuana
Living: With Family
Family History
Family History: Not Pertinent
Review of Systems
Review of Systems
Unable to obtain chest patient currently intubated and sedated.
Vital Signs
Temp Pulse Resp BP Pulse Ox
98.5 F 55 16 106/75 99
01/08/25 07:20 01/08/25 11:00 01/08/25 11:00 01/08/25 01:15 01/08/25 11:03
Selected Entries
01/07/25
21:29
Temp 102.1 F H
Physical Exam
Physical Exam
Constitutional: Acutely Ill and Cachetic
Eyes: No Conjunctival Hemorrhage and Sclera Anicteric
Cardiovascular: Regular Rate and S1/S2
Pulmonary: Clear (Anteriorly)
Gastrointestinal: Soft, Non Tender, Non Distended and Normal Bowel Sounds
Genito-Urinary: Negative CVA Tenderness
Extremities: Negative Edema
Skin: Other (Multiple tattoos); Negative Rash
Lab / Diagnostic Study Results
01/08/25 04:27
01/08/25 04:27
Abs Immat Gran (auto) Cancelled 01/07/25 21:12
Absolute Neuts (auto) Cancelled 01/07/25 21:12
Absolute Lymphs (auto) Cancelled 01/07/25 21:12
Absolute Monos (auto) Cancelled 01/07/25 21:12
Absolute Basos (auto) Cancelled 01/07/25 21:12
Total Counted 100 01/07/25 23:12
Immature Gran % Cancelled 01/07/25 21:12
Neutrophils % Cancelled 01/07/25 21:12
Lymphocytes % Cancelled 01/07/25 21:12
Monocytes % Cancelled 01/07/25 21:12
Eosinophils % Cancelled 01/07/25 21:12
Basophils % Cancelled 01/07/25 21:12
Abs Neuts (Manual) 2.6 10^3/uL (1.4-6.5) 01/07/25 23:12
Segmented Neutrophils 31 % (42-75) L 01/07/25 23:12
Band Neutrophils 33 % (0-3) H 01/07/25 23:12
Lymphocytes (Manual) 15 % (20-51) L 01/07/25 23:12
PT 12.5 Sec (11.4-14.6) 01/07/25 21:12
INR 0.89 01/07/25 21:12
Lactic Acid 1.1 mmol/L (0.7-2.0) 01/07/25 21:12
Ur Squamous Epith Cells >30 /LPF (Few) 01/08/25 00:01
Microbiology Results
Micro:
01/08/25 10:00 Nasal Screen MRSA (PCR) - Pending
Nose
01/07/25 21:12 Blood Culture - Pending
Blood/Venous
01/08/25 00:23 Legionella Urinary Antigen - Final
Urine Negative for Legionella pneumophila Serogroup 1 antigen.
A negative result does not rule out the possiblity of
Legionella infection due to other serogroups or species of
Legionella. Clinical correlation is recommended.
Streptococcus pneumoniae Antigen (M - Final
Negative for Streptococcus pneumoniae antigen.
A negative result does not exclude infection with
Streptococcus pneumoniae. Clinical correlation is
recommended.
01/08/25 00:01 Urine Culture - Pending
Urine
01/07/25 21:12 Influenza Types A & B (COURTNEY) - Final
Nasal Swab Negative for Influenza A & B, NAAT
Negative results must be combined with clinical observations
and patient history.
Nucleic Acid Amplification test (NAAT)performed on the
[employer] platform.
01/07/25 21:12 Blood Culture - Pending
Blood/Venous
01/08/25 CXR: Minor opacity in the left lung base
01/08/25 AXR: Moderate fecal matter throughout the colon. No evidence of intestinal obstruction.
01/07/25 CXR: Probable left upper lobe pneumonia. Recommend follow-up imaging after treatment to rule out underlying mass.
01/07/25 CXR: Improved aeration in the left upper lobe. No convincing focal infiltrates. Findings suggesting mild diffuse pneumonitis and/or pulmonary interstitial edema.
01/07/25 CT head: No acute intracranial abnormality noted.
Assessment / Plan
# Fever
# Pancytopenia
# Change in mental status
# Recent camping with tick exposure
# Intubated
# Cough, congestion, N/V/D
# Hyponatremia
# History of seizure disorder
# Cachexia
# Tobacco/marijuana use
-COVID/Flu neg
-Urine legionella, S. pneumo neg
-UA neg
-CXR minimal LLL opacity
- Blood cx pending
- Check sputum cx
- Lyme serology pending ( can be false negative in early disease)
- Check parasite blood smear, Anaplasma and Erhlichia PCR
- HIV screen
- Continue doxycycline and cefepime
-DC Vancomycin
-Follow temps/CBC
--- NOTE | 2025-01-08 12:13 | W.PN.HOSP.TC ---
Today's Communication/Plan
-
Continue antiepileptics
Infectious disease consultation
Assessment / Plan
Assessment / Plan
44-year-old male presented to ER for cough and congestion. He was weak and tired and had vomiting and diarrhea. Patient is from [place] and camping with family. He also had a tick on his body which was pulled out. Patient was initially placed
on supplemental oxygen and then intubated. History of seizures but has not had one in many years. Patient is a smoker and also uses marijuana.
Chest x-ray reviewed by me left lung base infiltrate
Head CT-no acute changes
Sedated on the vent
Cardiovascular system S1-S2 appreciated
Chest clear to auscultation
Abdomen soft and nontender
# Acute hypoxic respiratory failure secondary to left lower lobe pneumonia
VDRF
Possible COPD exacerbation
Initial gas pH 7.35/pCO2 47/PO2 236/bicarb 25.9
Blood culture sent from the ER
Urine Legionella and strep pneumonia antigen-negative
Sedation with propofol, fentanyl
Continue doxycycline, cefepime, vancomycin
Solu-Medrol for COPD exacerbation
Infectious disease and pulmonary consultations
Vent management per pulmonary
# Hypotension-I doubt this is septic shock this is likely secondary to medicines such as large dose of propofol. Patient has been off of Levophed and only required it for short duration.
# TME/altered mental status-secondary to hypoxia. Elevated valproate level. History of seizures.
Check EEG
Head CT-no acute changes
Urine drug screen-Marijuana,
Valproate level high at 169. Hold valproic acid
# Vomiting and diarrhea-check stool studies if possible and has diarrhea
# Tick was retrieved from the body
Lyme serology ordered but it might be too early
Infectious disease consultation requested
# Hyponatremia likely hypovolemic
Check serum and urine osmolality, urine sodium
Check TSH.
Improving with IV fluids
Continue IV fluids
# History of seizures-patient is on clobazam, zonisamide, Perampanel, Depakote as outpatient
Check EEG- No SZ
Neuro eval.
Valproate level-169. Hold valproic acid
Continue Zonegran, clobazam, perampanel
# Thrombocytopenia-unclear etiology-if not improving will need hematology evaluation
# Anxiety and depression-
Continue Effexor, risperidone
Wellbutrin on hold
# GI prophylaxis-PPI
# DVT prophylaxis-Lovenox
# Full code
Patient is sick at this point. Close monitoring in ICU
Discussed with staff and neurology
Total Critical Care Time 36 minutes. I was immediately available to the patient and staff. I personally examined, reviewed labs, diagnostic images/reports, interpretations, treatment plans, discussed patient care with other providers entered
orders as appropriate and documented the medical record.
Part of this note was created using voice recognition system. Occasional wrong word or��sound alike� substitutions may have inadvertently occurred due to the inherent limitations of voice recognition software. If noted kindly bring it to my
attention for correction.
Anticipated Discharge: > 48 hours
Subjective/Interval History
-
Date of Service: January 08, 2025
Objective Data
-
Labs:
Laboratory Results
01/07/25 01/08/25
23:12 04:27
WBC 3.3 L
Hgb 11.1 L
Hct 31.2 L
Plt Count 57 L 44 L D
HCO3 24.7
Sodium 129 L
Potassium 4.4
Chloride 101
Carbon Dioxide 25
BUN 23 H
Creatinine 0.8
Glucose 115 H
Calcium 8.0 L
Vital Signs:
Vital Signs
Temp Pulse Resp BP Pulse Ox
98.5 F 55 16 106/75 98
01/08/25 07:20 01/08/25 11:00 01/08/25 11:00 01/08/25 01:15 01/08/25 12:00
I&O
01/07/25 01/08/25 01/09/25
06:59 06:59 06:59
Intake Total 845.1 / 1010.4 1298.0 / 1298.0
Output Total 825 / 975 805 / 805
Balance 20.1 / 35.4 493.0 / 493.0
--- NOTE | 2025-01-08 12:14 | PTCARENOTE ---
propofol decreased to 15mcg per Dr. Pedersen, plan of care discussed with team. pt to remain on cerebell and wean sedation for rass 0 to -2 as tolerated. pt opened eyes to name but did not follow commands. levophed remains off, map>65. right radial
ruth zeroed and functioning. remains sinus ivett. ivf dc. ogt advanced to 65cm per md order, KUB completed. assessment unchanged further.
--- NOTE | 2025-01-08 12:23 | W.RAPID.EEG ---
Rapid EEG
-
Procedure Date: 01/08/25
Results:
Point of Care EEG Procedure Note
Patient name: MATHIEU VALERIO
Medical ID: [id number]
Date of : 1980
No evidence of status epilepticus
Background: The background was continuous, variable and reactive
Age: 44
Recording 1 Duration: 2025-01-08 00:35:28 - 2025-01-08 12:09:28
Recording Total Time: 11:34:00 (694 minutes)
Ordering Physician: ZEESHAN
Recording Technique: This EEG was obtained using a 10 lead, 8 channel circumferential rapid EEG with no parasagittal coverage.
Performed with Jaquan Modi Status Epilepticus Monitor, ICD-10 HI83E96
Clinical History: MATHIEU VALERIO is a 44 year old Undifferentiated AMS patient undergoing EEG to screen for non-convulsive status epilepticus.
Primary Indication: Undifferentiated AMS
Location: ICU/MICU
Report prepared by: Odilon Berrios
Report generated on: Jan 08, 2025 12:22 PM
--- NOTE | 2025-01-08 12:50 | PTCARENOTE ---
per Dr. Pedersen and Dr. Rica galvan to discontinue cerebell.
[2025-01-08 12:54] LABS: Triglycerides 88 mg/dl (10-149)
[2025-01-08 12:59] LABS: Depakane 98.2 ug/ml (50.0-120.0)
[2025-01-08 13:03] LABS: Fentanyl, Urine Negative (Negative)
[2025-01-08 13:58] LABS: O2 Saturation % 98.8 % (94-98); PCO2 48 mmHg (35-48); PO2 221 mmHg (83-108); pH 7.27 (7.35-7.45)
--- NOTE | 2025-01-08 15:28 | PTCARENOTE ---
Addendum entered by Kayla Small RN 01/08/25 15:45:
pt weaned for 1 hour 5/5 40%
Original Note:
fentanyl and propofol off at approx 1300, pt awake and following commands, restless, attempting to pull out ett. Dr. Pedersen at bedside, abg completed, per Dr. Pedersen restart sedation at this time and keep pt mechanically ventilated. prop
restarted at 10mcg and fentanyl at 25mcg bolus given per order for increased CPOT. pt briefly hypotensive and restarted on low dose levo.
[2025-01-08 15:37] LABS: Lactic Acid 0.8 mmol/L (0.7-2.0)
[2025-01-08 15:38] LABS: Blood Urea Nitrogen 21 mg/dl (9-20); Calcium 8.3 mg/dl (8.4-10.2); Carbon Dioxide 22 mmol/L (22-30); Estimated Creatinine Clearance 115 ml/min; Glucose 120 mg/dl (70-99); eGFR > 60.00
[2025-01-08 15:44] LABS: B-Hydroxybutyrate 0.43 mmol/L (0.02-0.27)
[2025-01-08 16:00] LABS: Chloride 107 mmol/L (98-107); Potassium 5.3 mmol/L (3.5-5.1); Sodium 130 mmol/L (135-145)
[2025-01-08 18:22] LABS: B.E. -5.1 mmol/L; HCO3 19.9 mmol/L (21-28); O2 Saturation % 98.9 % (94-98); PCO2 36 mmHg (35-48); PO2 131 mmHg (83-108); pH 7.35 (7.35-7.45)
[2025-01-08 18:25] LABS: O2 Therapy Air 40%
[2025-01-08 21:04] LABS: HIV Combo Negative (Negative)
[2025-01-08] MEDS: NICODERM TRANSDERMAL 14 MG TRANSDERM (21:23)
[2025-01-08] MEDS: WELLBUTRIN REGULAR RELEASE 100 MG TUBE (21:25)
[2025-01-08] MEDS: RISPERDAL 2 MG TUBE (21:25)
[2025-01-08 23:15] LABS: TSH 2.44 uIU/ml (0.47-4.68)
--- NOTE | 2025-01-09 00:30 | PTCARENOTE ---
When pt wakes up, he sits up, follows commands and tracks nurse, shakes head yes/no appropriately to questions. Deep sedation ordered and maintained otherwise. Phuc hugger to maintain temp. NSR on monitor. Levophed off/on. Vent settings as ordered.
OGT to WINNIE. Carlos antonio for critical I&Os. Will monitor
[2025-01-09] MEDS: NON-FORMULARY ITEM 20 MG TUBE ×2 (00:33→21:29)
[2025-01-09] MEDS: ZONEGRAN 100 MG TUBE ×2 (00:37→21:34)
[2025-01-09] MEDS: SOLU-MEDROL PF 50 MG IV ×2 (00:37→11:24)
[2025-01-09] MEDS: MAXIPIME 1000 MG IV ×5 (00:37→23:35)
[2025-01-09] MEDS: STERILE WATER FOR INJECTION 10 ML IV ×5 (00:38→23:35)
[2025-01-09] MEDS: VIBRAMYCIN 260 MG IV ×3 (00:38→23:35)
--- NOTE | 2025-01-09 04:00 | PTCARENOTE ---
AM care done. Labs sent and resulted. Will monitor
[2025-01-09 04:53] LABS: B.E. -2.6 mmol/L; HCO3 23.7 mmol/L (21-28); O2 Saturation % 96.3 % (94-98); O2 Therapy 40; PCO2 46 mmHg (35-48); PO2 75 mmHg (83-108); pH 7.32 (7.35-7.45)
[2025-01-09 05:01] LABS: Hematocrit 32.9 % (39.0-52.0); Hemoglobin 11.4 g/dL (13.0-18.0); Mean Corp Hgb Conc. 34.7 g/dL (33.0-37.0); Mean Corpuscular Hgb 33.1 pg (27.0-31.0); Mean Corpuscular Volume 95.6 fL (80.0-94.0); Platelet Count 46 10^3/uL (130-400); Red Blood Cell Count 3.44 10^6/uL (4.70-6.10); Red Cell Dist. Width 15.3 % (11.5-14.5); White Blood Cell Count 4.7 10^3/uL (4.8-10.8)
[2025-01-09 05:22] LABS: Blood Urea Nitrogen 26 mg/dl (9-20); Calcium 8.7 mg/dl (8.4-10.2); Carbon Dioxide 22 mmol/L (22-30); Chloride 108 mmol/L (98-107); Estimated Creatinine Clearance 86 ml/min; Glucose 121 mg/dl (70-99); Magnesium 2.1 mg/dl (1.6-2.3); Phosphorus 3.5 mg/dl (2.5-4.5); Potassium 5.2 mmol/L (3.5-5.1); Sodium 134 mmol/L (135-145); eGFR > 60.00
[2025-01-09 05:26] LABS: NT-proBNP 213 pg/ml
[2025-01-09 05:44] VITALS: BMI 16.8
[2025-01-09] MEDS: NICODERM TRANSDERMAL 14 MG TRANSDERM (07:40)
[2025-01-09] MEDS: MIRALAX 17 GRAMS TUBE (07:40)
[2025-01-09] MEDS: EFFEXOR 50 MG TUBE ×3 (07:40→23:35)
[2025-01-09] MEDS: WELLBUTRIN REGULAR RELEASE 100 MG TUBE ×2 (07:40→19:55)
[2025-01-09] MEDS: NSS (PRESERVATIVE FREE) 10 ML IV (07:41)
[2025-01-09] MEDS: PROTONIX IV 40 MG IV (07:41)
--- NOTE | 2025-01-09 07:43 | W.PN.ID1 ---
Date of Service
Date of Service: January 09, 2025
Today's Communication
Continue current antibiotics.
Assessment / Plan
# Fever
# Pancytopenia
# Change in mental status
# Recent camping with tick exposure
# Intubated
# Cough, congestion, N/V/D
# Hyponatremia
# History of seizure disorder
# Cachexia
# Tobacco/marijuana use
-COVID/Flu neg
-Urine legionella, S. pneumo neg
-UA neg
-CXR minimal LLL opacity
- Blood cx pending
- Check sputum cx
- Lyme serology pending ( can be false negative in early disease)
- Blood parasite smear negative
- Anaplasma and Ehrlichia PCR pending
- HIV negative
- Continue doxycycline and cefepime
- Follow temps/CBC
Patient remains critically ill with VDRF and ICU
Further recommendations as additional data is returned.
����������������������������������������������������������
Chief Complaint
-: Pneumonia
Subjective / Review of Systems
Patient seen and examined. Remains intubated and sedated at this time.
Vital Signs / Physical Exam
Vital Signs
Vital Signs
Temp Pulse Resp BP Pulse Ox
97.0 F 67 16 109/84 92
01/09/25 07:00 01/09/25 07:00 01/09/25 07:00 01/08/25 17:17 01/09/25 07:13
Physical Exam
Constitutional: Acutely Ill and Non-toxic
Eyes: No Conjunctival Hemorrhage and Sclera Anicteric
Oropharyngeal: Other (ET tube in place.)
Cardiovascular: S1/S2; Negative S3/S4
Pulmonary: Coarse and Other (On vent); Negative Wheezes or Rhonchi
Gastrointestinal: Soft, Non Distended, Normal Bowel Sounds and No Rebound
Extremities: Negative Edema, Cyanosis or Erythema
Neurological: Other (Sedated)
Psychological: Calm
Objective Data
Lab Data
Lab Results
01/09/25 04:29
01/09/25 04:29
PT 12.5 Sec (11.4-14.6) 01/07/25 21:12
INR 0.89 01/07/25 21:12
APTT 36.2 Sec (23.4-35.0) H 01/07/25 21:12
Estimated Creat Clear 86 ml/min 01/09/25 04:29
Lactic Acid 0.8 mmol/L (0.7-2.0) 01/08/25 15:19
Total Bilirubin 0.5 mg/dl (0.2-1.3) 01/07/25 21:12
AST 21 U/L (17-59) 01/07/25 21:12
ALT < 10 U/L (0-50) 01/07/25 21:12
Alkaline Phosphatase 55 U/L (38-126) 01/07/25 21:12
Most recent labs reviewed.
Micro Results:
01/07/25 21:12 Blood Culture - Preliminary
Blood/Venous No Growth in 24 hours- Final report to follow
01/07/25 21:12 Blood Culture - Preliminary
Blood/Venous No Growth in 24 hours- Final report to follow
01/08/25 13:18 Blood Parasites Smear - Final
Blood/Venous -- No blood parasites seen --
01/08/25 13:56 Respiratory Culture - Pending
Endotracheal Gram Stain - Preliminary
01/08/25 10:00 Nasal Screen MRSA (PCR) - Final
Nose MRSA not detected - performed by PCR methodology.
01/08/25 00:23 Legionella Urinary Antigen - Final
Urine Negative for Legionella pneumophila Serogroup 1 antigen.
A negative result does not rule out the possiblity of
Legionella infection due to other serogroups or species of
Legionella. Clinical correlation is recommended.
Streptococcus pneumoniae Antigen (M - Final
Negative for Streptococcus pneumoniae antigen.
A negative result does not exclude infection with
Streptococcus pneumoniae. Clinical correlation is
recommended.
01/08/25 00:01 Urine Culture - Pending
Urine
01/07/25 21:12 Influenza Types A & B (COURTNEY) - Final
Nasal Swab Negative for Influenza A & B, NAAT
Negative results must be combined with clinical observations
and patient history.
Nucleic Acid Amplification test (NAAT)performed on the
[employer] platform.
01/08/25 CXR: Minor opacity in the left lung base
01/08/25 AXR: Moderate fecal matter throughout the colon. No evidence of intestinal obstruction.
01/07/25 CXR: Probable left upper lobe pneumonia. Recommend follow-up imaging after treatment to rule out underlying mass.
01/07/25 CXR: Improved aeration in the left upper lobe. No convincing focal infiltrates. Findings suggesting mild diffuse pneumonitis and/or pulmonary interstitial edema.
01/07/25 CT head: No acute intracranial abnormality noted.
--- NOTE | 2025-01-09 08:12 | W.PN.NEURO.1 ---
Today's Communication / Plan
-
Continue zonisamide 100 mg at bedtime, clobazam 20 mg at bedtime
Follow serial valproic acid levels, restart 24 hours after when nontoxic levels are discovered
Consider restart of perampanel at 2 mg at his visit is not clear the patient has been utilizing this medication and was previously at a dose of 10 mg
Neuro Assessment/Plan
Assessment
Sudden change in mental status associated with upper respiratory tract symptomatology and hyponatremia with a prior history of epilepsy
Probably secondary to toxic metabolic encephalopathy potentially worsened by overdose of valproic acid
Expect improvement over time with discontinuance of sedating agents
Plan
Continue zonisamide 100 mg at bedtime, clobazam 20 mg at bedtime
Follow serial valproic acid levels, restart 24 hours after when nontoxic levels are discovered
Consider restart of perampanel at 2 mg at his visit is not clear the patient has been utilizing this medication and was previously at a dose of 10 mg
Attempt to reduce sedation if at all possible
Provide lorazepam if seizure greater than 10 minutes in duration
Provide patient as outpatient with midazolam nasal spray 1 spray in 1 nostril if seizure as outpatient
Will follow peripherally.
Subjective/Objective
Subjective Data
Date of Service: January 09, 2025
Patient unable to provide his own medical history
Objective Data
Vital Signs
Temp Pulse Resp BP Pulse Ox
36.1 C 67 16 109/84 91
01/09/25 07:00 01/09/25 07:00 01/09/25 07:00 01/08/25 17:17 01/09/25 07:46
Lab Results
01/09/25 04:29
01/09/25 04:29
PT 12.5 Sec (11.4-14.6) 01/07/25 21:12
INR 0.89 01/07/25 21:12
APTT 36.2 Sec (23.4-35.0) H 01/07/25 21:12
Sodium 134 mmol/L (135-145) L 01/09/25 04:29
Potassium 5.2 mmol/L (3.5-5.1) H 01/09/25 04:29
BUN 26 mg/dl (9-20) H 01/09/25 04:29
Glucose 121 mg/dl (70-99) H 01/09/25 04:29
Calcium 8.7 mg/dl (8.4-10.2) 01/09/25 04:
Phosphorus 3.5 mg/dl (2.5-4.5) 01/09/25 04:
Kwo-B-Yqnabtbutde Pept 213 pg/ml 01/09/25 04:29
Ur Buprenorphine Negative (Negative) 01/08/25 00:01
Patient Allergies
No Known Allergies Allergy (Unverified 01/07/25 20:58)
Review of Systems
-
Unable to obtain full review of systems at this time due to: Patient Intubation
History Source: Patient
All other systems: Reviewed and negative
Physical Exam
-
General: No Apparent Distress, Intubated and Appears Stated Age
Eyes: Round OU and [place] Conjunctivae
HEENT: Anicteric and Moist Mucous Membranes
Neck: Full Range of Motion
Respiratory: No Dyspnea
Cardiac: No JVD
GI: Non-distended
Skin: Unremarkable
Extremities: No Clubbing, No Cyanosis and No Edema
Psych: Unable to Assess
Extended Neurological Exam
Mood & Affect: Unable to Assess
Attention Span & Concentration: Unresponsive to Verbal Stimuli and Unresponsive to Physical Stimuli; Negative Awake, Alert or Interactive
Memory: Unable to Assess
Tremor: Hand Tremor Absent and Head Tremor Absent
Involuntary Movement: None
Speech: Unable to Assess
Cranial Nerve II: Left Eye: Pupillary Size Unremarkable and Unable to Assess Visual Velasco
Cranial Nerve II: Right Eye: Pupillary Size Unremarkable and Unable to Assess Visual Velasco
Cranial Nerves III, IV, : Extraocular Movement: Absent Doll's Eyes
Cranial Nerve V: Facial Sensation: Unable to Assess
Cranial Nerve VII: Facial Symmetry: Normal Facial Symmetry
Cranial Nerves IX, X: Palate Movement: Unable to Assess
Cranial Nerve XI: Shoulder Shrug: Unremarkable (With indirect testing)
Cranial Nerve XII: Tongue Protusion: Unable to Assess
Muscle Strength, Overall: Negative Spontaneously Moves
Muscle Bulk & Tone: Bulk Unremarkable and Tone Unremarkable
Pronator Drift: Unable to Assess
Cold Sensation: Unable to Assess
Vibration Sensation: Unable to Assess
Touch Sensation: Negative Withdrawal to Pain
Coordination: Unable to Assess
Gait & Station: Unable to Assess
Past History
Past History
ED Past Medical History: Seizures and Psychiatric
ED Past Surgical History: Orthopedic (Right TKR, right shoulder surgery)
Social History
Tobacco: Smoker
Alcohol: None
Drug: Marijuana
Living: with family
Employment: Employed
Family History
Family History: Other (Reviewed and noncontributory)
Medications
-
Medications:
Generic Name Dose Route Start Last Admin
Trade Name Freq PRN Reason Stop Dose Admin
Bupropion HCl 100 mg 01/08/25 20:00 01/09/25 07:40
Bupropion Regular Release 100 Mg Tablet TUBE 02/05/25 19:59 100 mg
Q12 MICHELLE Administration
Cefepime HCl 1,000 mg 01/08/25 06:00 01/09/25 05:36
Cefepime Hcl 1,000 Mg/11.3 Ml Vial IV 1,000 mg
Q6H MICHELLE Administration
Fentanyl Citrate 50 mcg 01/08/25 10:55 01/08/25 19:55
Fentanyl (50 Mcg/Ml) 100 Mcg/2 Ml Ampul IV 01/22/25 10:54 50 mcg
[id number] PRN Administration
see protocol
Protocol
Doxycycline Hyclate 100 mg/ 260 mls @ 260 mls/hr 01/08/25 00:00 01/09/25 00:38
Sodium Chloride IV 260 mls
Q12@0000,1200 MICHELLE Administration
Valproate Sodium 500 mg/ 55 mls @ 55 mls/hr 01/08/25 00:00 01/08/25 01:46
Sodium Chloride IV 02/05/25 00:00 Not Given
On Hold: 01/08/25 01:40 Q12@0000,1200 MICHELLE
Fentanyl Citrate 1,000 mcg in 100 mls @ 0 mls/hr 01/08/25 11:00
Sublimaze IV
PER PROTOCOL MICHELLE
Protocol
Per Protocol
Propofol 1,000,000 mcg in 100 mls @ 0 mls/hr 01/08/25 11:00 01/08/25 17:08
Diprivan IV 100 mls
PER PROTOCOL MICHELLE Administration
Protocol
Per Protocol
Methylprednisolone Sodium Succinate 50 mg 01/08/25 00:30 01/09/25 00:37
Methylprednisolone Pf 125 Mg/2 Ml Vial IV 02/05/25 00:29 50 mg
Q12@0000,1200 MICHELLE Administration
Nicotine 14 mg 01/08/25 19:10 01/09/25 07:40
Nicotine 14 Mg Patch TRANSDERM 02/05/25 19:09 14 mg
DAILY MICHELLE Administration
Non-Formulary Item 1 0 mg 01/08/25 22:00 01/09/25 00:33
Unit (Clobazam 20 TUBE 02/05/25 21:59 20 mg
Mg Tablet 1 Tablet HS MICHELLE Administration
Po Nightly)
Non-Formulary Medication 10 mg 01/08/25 22:00
Perampanel [Fycompa] PO 02/05/25 21:59
HS MICHELLE
Pantoprazole Sodium 40 mg 01/08/25 08:00 01/09/25 07:41
Pantoprazole Sodium 40 Mg/10 Ml Vial IV 02/05/25 07:59 40 mg
DAILY MICHELLE Administration
Patch Removal 0 patch 01/08/25 22:00 01/08/25 21:25
Remove Nicotine Patch REMOVE 02/05/25 21:59 1 patch
HS MICHELLE Administration
Polyethylene Glycol 17 grams 01/08/25 08:00 01/09/25 07:40
Polyethylene Glycol Powder 17 Grams Packet TUBE 02/05/25 07:59 17 grams
DAILY MICHELLE Administration
Risperidone 2 mg 01/08/25 22:00 01/08/25 21:25
Risperidone 2 Mg Tablet TUBE 02/05/25 21:59 2 mg
HS MICHELLE Administration
Sodium Chloride 0 flush 01/07/25 23:00
Sodium Chloride 0.9% (Flush) Syringe IV 02/04/25 22:59
PER PROTOCOL MICHELLE
Sodium Chloride 10 ml 01/08/25 08:00 01/09/25 07:41
Sodium Chloride 0.9% (Preservative Free) 10 Ml Vial IV 02/05/25 07:59 10 ml
DAILY MICHELLE Administration
Sterile Water 10 ml 01/08/25 06:00 01/09/25 05:36
Sterile Water For Injection 10 Ml Vial IV 02/05/25 05:59 10 ml
Q6H MICHELLE Administration
Venlafaxine HCl 50 mg 01/09/25 08:00 01/09/25 07:40
Venlafaxine 50 Mg Regular Release Tablet TUBE 02/06/25 07:59 50 mg
Q8H MICHELLE Administration
Zonisamide 100 mg 01/08/25 22:00 01/09/25 00:37
Zonisamide Susp 10 Mg/Ml In Oral Syringe TUBE 02/05/25 21:59 100 mg
HS MICHELLE Administration
--- NOTE | 2025-01-09 08:22 | W.PN.INTV ---
Today's Communication / Plan
Recommendations
Mechanical ventilation with SAT/SBT planned for tomorrow
Stop systemic steroids as this could potentially be contributing to his severe agitation/aggressive behavior
Start Seroquel BID
Advised to the father to not come back into the room to visit his son until he speaks to the nurse first given the patient's severe aggressive/violent behavior after he saw his father today
Antibiotics
AEDs per neurology
Continue holding valproic acid given its toxic levels on admission
Start TF
Continue ICU level of care for this critically ill patient
Assessment
-
Assessment: 44-year-old tobacco smoker male with a past medical history of seizure disorder who presented with slurred speech, weakness and shortness of breath for 3 days. Patient is from [place] and was camping with family here in [place]
for the past 3 days. Per documentation, the daughters had removed a tick from the patient on the day prior to arrival, however unclear if the tick was engorged or not. The patient has a known seizure disorder on several AEDs, and has not had
seizures in many years and he does not use illicit drugs although he does smoke marijuana. In the ER he initially was afebrile to 99.9 �F, pulse rate 124, respiratory rate 22, BP 113/86 and saturating 71% on room air. Patient had to be intubated
due to continued altered mental status for airway protection purposes. Initial labs showed leukopenia to 4.1, Hb 11.5, platelet count 57, 33% bands, serum sodium 126, urinalysis with no signs of UTI, and urine drug screen for marijuana +
benzodiazepines. Valproic acid level was drawn and found to be in toxic range at 169.2 ug/ml. Urine and blood cultures collected. Initial CXR showed suspected left upper lobe pneumonia. In the ER he was given a total of 1.5 L NS 0.9%, Zosyn,
DuoNebs and Tylenol. Given that he was intubated, he was admitted to the ICU for further care and Administrative Fellow services consulted for additional management/recommendations.
Chronic conditions FORM WORK[employer]: Seizure disorder, tobacco use disorder
Impression:
#Acute respiratory failure with hypoxia + hypercapnia requiring mechanical ventilation
#Suspected left-sided CAP (?aspiration given his AMS)
#Pancytopenia with significant bandemia at 33% on admission
#Hypotonic hyponatremia
#Vomiting/diarrhea
#Seizure disorder with supratherapeutic/toxic valproic acid levels
#Depression/anxiety
#Tick found on body (unclear if engorged or not and no reports of signs of targetoid lesion)
#Tobacco use
Plan:
- Patient initially was hypoxic down to 71% and encephalopathic, hence he was intubated for airway protection
- Imaging from 01/08 showed left basilar opacification although initial CXR showed suspected multifocal small patchy opacities (MIS/RUL)
- Continue with broad-spectrum antibiotics with cefepime/Doxy
- Continue with mechanical ventilation with daily SAT/SBT if clinically appropriate -patient got extremely agitated today after his dad visited. SBT aborted. Will try SBT again tomorrow
- Maintain plateau pressure <30 and titrate FiO2 + PEEP to keep SpO2 >90-94%
- Continue aspiration precautions; keep HOB >30-45�
- prn nebulized bronchodilators - not currently bronchospastic
- Oropharyngeal + deep ETT suctioning with subglottic as needed
- Daily CXR + blood gas
- Daily vent adjustments as needed based on blood gas and SaO2
- Low level of sedation with goal RASS as 0 to -2
- Patient is currently not wheezing and unclear if he has COPD as there are no prior spirometry/PFT studies for me to review; also unable to get additional history details from the patient himself given his acute clinical status - -> patient is
currently on Solu-Medrol at 50 mg IV q12hr. Given his severe agitation today, unclear if the Solu-Medrol is contributing to this. I will stop his steroids now
- Continue with broad-spectrum antibiotics with cefepime + vancomycin and doxycycline
- Follow-up infectious workup including blood cultures x 2 (collected 01/07), urine culture (collected 01/08), and will check a respiratory culture from ETT if a decent sample can be collected
- Follow-up Lyme serology in addition to HIV antigen/antibody combo, as well Ehrlichia and Anaplasma PCR
- ID consulted - recs apprecoated
- Continue AEDs except for valproic acid given its toxic levels, which we will continue to trend; neurology consulted and recs appreciated; family needs to bring in his Fycompa
- If patient does not awaken as expected, would consider rechecking EEG (conventional perhaps), and consider LP +/- MRI brain, although he does have metallic screws in his left and right glenoid so do not think the MRI would be feasible
- Maintain MAP>65
- Nicotine patch
- Replete electrolytes with K>4, Mg>2
- Maintain euglycemia with goal BG 140-180; A1c: 4.7 on 01/09/2025
- Trend H/H and transfuse if needed to keep Hb>7g/dL; keep plt>20k, unless there is concern for bleeding then keep plt>50k
- Early nutrition � start tube feeds
- DVT ppx: SCDs given his pancytopenia with significant thrombocytopenia; if platelet count remained stable for >48 hours then will start heparin SQ at that time
Code status: Full code
Continue ICU level of care for this critically ill patient
Critical care statement: A total of 37 minutes of critical care time was provided for this patient today. This includes management of unstable vital signs, evaluation of the patient at bedside, reviewing the patient's pertinent medical records
including radiographs, microbiology, laboratory evaluations, and discussion with primary team, consultants, pharmacy, nutrition, physical therapy, case management, charge nurse, critical care nursing, and respiratory therapy.
Subjective Dataa
Subjective Data
Date of Service:
Date of Service: January 09, 2025
Chief Complaint: Administrative Fellow Follow Up
Subjective:
Seen and evaluated this AM. Remains intubated. Trialed a SBT session but he became severely agitated once his father came to the ICU and brought up an 'AM-PM bottle lubin.' Code purple called and patient was placed back onto full vent mode and
resedated.
Review of Systems
General: Unobtainable - Sedation
Objective Data
Data Reviewed
Vital Signs / I&O / Oxygen:
Vital Signs
Temp Pulse Resp BP Pulse Ox
96.7 F L 63 16 109/84 95
01/09/25 11:00 01/09/25 11:00 01/09/25 11:00 01/08/25 17:17 01/09/25 11:38
Intake and Output
01/08/25 01/09/25 01/10/25
06:59 06:59 06:59
Intake Total 845.1 / 1010.4 1488.8 / 1499.8 44 / 44
Output Total 825 / 975 1400 / 1440 265 / 265
Balance 20.1 / 35.4 88.8 / 59.8 -221 / -221
SaO2 [A/C] 95
SaO2 96
Physical Exam
General: Respiratory Distress (negative), Chills (negative) and Sweats (negative)
HEENT: Normocephalic and Anicteric
Cardiovascular: S1-S2 and Peripheral Edema (negative)
Respiratory: Wheeze (negative), Crackles (negative), Rhonchi (negative), Non-Labored Respirations and ET Tube (Mechanical breath sounds heard bilaterally)
GI: Soft, Non Distended, Non Tender and Normal Bowel Sounds
Neurology: Tremors (negative) and Other (Sedated)
Skin: Warm, Dry, Cyanosis (negative) and Jaundice (negative)
Labs/Micro/Reports
Lab Data
01/09/25 04:29
01/09/25 04:29
Laboratory Results
01/08/25 01/08/25 01/09/25
13:50 18:15 04:29
pH 7.27 L 7.35 7.32 L
pCO2 48 36 46
pO2 221 H 131 H 75 L
HCO3 22.0 19.9 L 23.7
O2 Delivery Level Air 40% 40
Microbiology
01/08/25 00:01 Urine Urine Culture - Final
NO GROWTH
01/07/25 21:12 Blood/Venous Blood Culture - Preliminary
Positive culture in progress
01/07/25 21:12 Blood/Venous Gram Stain - Preliminary
01/07/25 21:12 Blood/Venous Blood Culture - Preliminary
No Growth in 24 hours- Final report to follow
01/08/25 13:18 Blood/Venous Blood Parasites Smear - Final
01/08/25 13:56 Endotracheal Gram Stain - Preliminary
01/08/25 10:00 Nose Nasal Screen MRSA (PCR) - Final
MRSA not detected - performed by PCR methodology.
01/08/25 00:23 Urine Legionella Urinary Antigen - Final
Negative for Legionella pneumophila Serogroup 1 antigen.
A negative result does not rule out the possiblity of
Legionella infection due to other serogroups or species of
Legionella. Clinical correlation is recommended.
01/08/25 00:23 Urine Streptococcus pneumoniae Antigen (M - Final
Negative for Streptococcus pneumoniae antigen.
A negative result does not exclude infection with
Streptococcus pneumoniae. Clinical correlation is
recommended.
01/07/25 21:12 Nasal Swab Influenza Types A & B (COURTNEY) - Final
Negative for Influenza A & B, NAAT
Negative results must be combined with clinical observations
and patient history.
Nucleic Acid Amplification test (NAAT)performed on the
[employer] platform.
--- NOTE | 2025-01-09 09:15 | PTCARENOTE ---
pt received from previous rn ett to vent, on propofol and fentanyl, awakens easily, follows simple commands, nods yes and no appropriately, denies pain. see vent settings as charted. oral care provided, turned and repositioned. nsr on monitor, right
radial ruth zeroed and functioning. johnson draining yellow to paco urine, ogt at 65cm, auscultated for placement. all safety precautions in place.
--- NOTE | 2025-01-09 09:55 | W.PN.HOSP.TC ---
Today's Communication/Plan
-
Consult hematology
Follow CBC with differential
Continue with current antibiotics
Follow blood culture data
Wean vent per pulmonary
Assessment / Plan
Assessment / Plan
44-year-old male presented to ER for cough and congestion. He was weak and tired and had vomiting and diarrhea. Patient is from [place] and camping with family. He also had a tick on his body which was pulled out. Patient was initially placed
on supplemental oxygen and then intubated. History of seizures but has not had one in many years. Patient is a smoker and also uses marijuana.
# Acute hypoxic respiratory failure
VDRF
Possible pneumonia-chest x-ray initially shows concern for left upper lobe infiltrate which resolved with intubation. Current chest x-rays is concerning for bilateral interstitial and airspace disease throughout both lungs.
? COPD exacerbation
Initial gas pH 7.35/pCO2 47/PO2 236/bicarb 25.9
Blood culture sent from the ER-shows gram-positive bacilli in 1 out of 2 bottles
Urine Legionella and strep pneumonia antigen-negative
Sedation with propofol, fentanyl
Continue doxycycline, cefepime
Solu-Medrol for COPD exacerbation per pulmonary
Infectious disease and pulmonary consultations
Vent management per pulmonary
# Hypotension-I doubt this is septic shock this is likely secondary to medicines such as large dose of propofol. Patient has been off of Levophed and only required it for short duration. Remains stable hemodynamically
# TME/altered mental status-secondary to hypoxia. Elevated valproate level-repeat improved. History of seizures.
Neurology input noted-suspected encephalopathy
Head CT-no acute changes
Urine drug screen-Marijuana,
Valproate level high at 169. Hold valproic acid
# Vomiting and diarrhea-check stool studies if possible and has diarrhea
# Tick was retrieved from the body
Lyme serology ordered but it might be too early
Infectious disease following
# Hyponatremia likely hypovolemic
Improving with IV fluids
Continue IV fluids
# History of seizures-patient is on clobazam, zonisamide, Perampanel, Depakote as outpatient
EEG- No SZ
Neuro eval.
Valproate level-169. Hold valproic acid
Continue Zonegran, clobazam, perampanel
# Pancytopenia-consult hematology
# Anxiety and depression-
Continue Effexor, risperidone
Wellbutrin on hold
# GI prophylaxis-PPI
# DVT prophylaxis-Lovenox
# Full code
Discussed with RN
Total Critical Care Time___35__ minutes. I was immediately available to the patient and staff. I personally examined, reviewed labs, diagnostic images/reports, interpretations, treatment plans, discussed patient care with other providers and
family or caregivers (if patient is unable to make decisions), entered orders as appropriate and documented the medical record.
Part of this note was created using voice recognition system. Occasional wrong word or��sound alike� substitutions may have inadvertently occurred due to the inherent limitations of voice recognition software. If noted kindly bring it to my
attention for correction.
Anticipated Discharge: > 48 hours
Subjective/Interval History
-
Date of Service: January 09, 2025
Sedated and intubated on vent
Discussed with RN-no overnight events but this morning lab called for positive blood cultures
Objective Data
-
Labs:
Laboratory Results
01/09/25
04:29
WBC 4.7 L
Hgb 11.4 L
Hct 32.9 L
Plt Count 46 L
HCO3 23.7
Sodium 134 L
Potassium 5.2 H
Chloride 108 H
Carbon Dioxide 22
BUN 26 H
Creatinine 0.8
Glucose 121 H
Calcium 8.7
Vital Signs:
Vital Signs
Temp Pulse Resp BP Pulse Ox
97 F 66 16 109/84 94
01/09/25 08:00 01/09/25 09:00 01/09/25 09:00 01/08/25 17:17 01/09/25 09:00
I&O
01/08/25 01/09/25 01/10/25
06:59 06:59 06:59
Intake Total 845.1 / 1010.4 1488.8 / 1499.8 33 / 33
Output Total 825 / 975 1400 / 1440 205 / 205
Balance 20.1 / 35.4 88.8 / 59.8 -172 / -172
Review of Systems
-
Unable to obtain full review of systems at this time due to: Patient Intubation
Physical Exam
-
General: No Apparent Distress
Respiratory: Clear to Auscultation (Anteriorly ; patient is intubated) and Non Labored Respirations; Negative Accessory Resp Muscle Use
Cardiac: Regular Rhythm and S1/S2
GI: Soft, Nondistended and Normal Bowel Sounds
Neuro: Sedated
Data Reviewed
-
Labs: Labs Reviewed by me
[2025-01-09 10:52] LABS: Glycohemoglobin (HgbA1c) 4.7 % (4.0-5.6)
[2025-01-09 12:16] VITALS: BP_SYST 153
[2025-01-09 12:18] VITALS: BP_SYST 153
[2025-01-09] MEDS: ATIVAN 4 MG IM (12:35)
[2025-01-09] MEDS: ATIVAN 1 MG IM (12:35)
[2025-01-09] MEDS: SUBLIMAZE 50 MCG IV ×2 (12:45→13:00)
[2025-01-09] MEDS: ZYPREXA 10 MG IM (12:45)
[2025-01-09] MEDS: STERILE WATER FOR INJECTION 2.1 ML IM (12:45)
[2025-01-09] MEDS: SEROQUEL 100 MG PO (12:56)
--- NOTE | 2025-01-09 13:00 | RESPNOTE ---
patient not cooperating during SBT, aggressive behavior. able to wean for about 20mins but began to pull at IVs and ETT. Pt managed to pull out multiple IVs and ripped off hi-lo port from ETT. patient re-sedated with 4 point restraints, wean stopped
and placed back to settings: AC 18-500-5-40.
[2025-01-09 13:08] LABS: B.E. -3.1 mmol/L; O2 Saturation % 98.9 % (94-98); PCO2 51 mmHg (35-48); PO2 192 mmHg (83-108); pH 7.28 (7.35-7.45)
[2025-01-09 13:13] LABS: O2 Therapy 40%
--- NOTE | 2025-01-09 13:52 | PTCARENOTE ---
at approx 1215 Aunt and Father at bedside- sedation off and pt trialed on wean with RT at bedside, Dr. Pedersen at bedside pt agitated and restless attempting to pull ETT, abg completed. pt suddenly with increased agitation, thrashing in bed,
combative, code purple called. pt lost IV access, see mar, all meds given as ordered by Dr. Pedersen at bedside, new iv access placed. pt placed in four point restraints per md order. Dr. Pedersen ordered to increase fentanyl gtt and propofol gtt-
see flowsheets. rass now -2. pt back on AC.
[2025-01-09] MEDS: NSS 1000 IV ×2 (14:06→23:35)
[2025-01-09] MEDS: DIPRIVAN 100 IV ×2 (15:04→21:32)
[2025-01-09 15:26] LABS: Triglycerides 216 mg/dl (10-149)
[2025-01-09 15:38] LABS: Fibrinogen 407 MG/DL (199-459)
[2025-01-09] MEDS: SUBLIMAZE 100 IV (17:54)
--- NOTE | 2025-01-09 18:04 | PTCARENOTE ---
assessment unchanged, remains on prop, fent and ivf. turned and repositioned
[2025-01-09 20:29] VITALS: BP 126/92
--- NOTE | 2025-01-09 20:56 | CON.ONC ---
Consultation
-
Date Consultation Requested: 01/09/25
Date Consultation Performed: 01/09/25
Requesting Provider: Patrick Cortés
Performing Provider: Elenita De Leon
Reason for Consultation: Pancytopenia
Impression
Impression
Thrombocytopenia, suspect related to valproic acid
Anemia, leukopenia - suspect related to acute illness
Change in mental status
Plan
Plan
Association between valproic acid and thrombocytopenia is well established.
His other cytopenias are mild and can be attributed to probable infectious illness.
Valcuolated neutrophils and toxic granulation are suggestive of significant infection.
Ferritin, triglycerides, fibrinogen relatively unremarkable and not consistent with hemophagocytic lymphohistiocytosis.
Platelets should beging to improve 1-3 days after holding valproic acid. Holding drug not an option here but suspect platelets will improve with normalization of valproic acid level.
T/C splenic U/S once pt is clinically stable.
Thank you for consult, will follow along with you.
Patient History
History of Present Illness
44-year-old male with hx sz d/o on valproic acid and tobacco use disorder. Usually lives in [place] but was camping with family here in [place] for afew days. He presented to the ED with cough, congestion, fever, weakness, fatigue and
incontinence of diarrhea. In ED he was hypoxic and confused and had to be intubated for airway protection. Workup significant for pancytopenia, valproic acid level toxic at 169, and CXR showing MIS pna. He has been markedly agitated at times and
has been unable to be extubated. No evidence of seizure activity by Ceribell device. He was febrile in ED but now hypothermic. Of note, pt had a tick which daughters pulled off. Pt intubated, sedate and unable to provide any history.
Past-Medical/Surgical History
PMHx:
Seizure disorder, tobacco use disorder
PSHx:
Noncontributory
Social History
Tobacco: Smoker
Alcohol: None
Drug: Marijuana
Living: With Family
Family History
Family History: Reviewed & Not Pertinent
Patient Medication
�Medication �Instructions �Recorded �Confirmed �Last Taken �Type
bupropion HCl 200 mg tablet,12 hr 200 mg PO DAILY Mental 01/07/25 01/07/25 Unknown History
sustained-release Health/Anxiety
clobazam 20 mg tablet 20 mg PO HS Seizures 01/07/25 01/07/25 Unknown History
divalproex 500 mg tablet,delayed 500 mg PO BID Seizures 01/07/25 01/07/25 Unknown History
release
omeprazole 40 mg capsule,delayed 40 mg PO DAILY Gastrointestinal 01/07/25 01/07/25 Unknown History
release Issue
perampanel 10 mg tablet (Fycompa) 10 mg PO HS Seizures 01/07/25 01/07/25 Unknown History
risperidone 2 mg tablet 2 mg PO HS Mental Health/Anxiety 01/07/25 01/07/25 Unknown History
venlafaxine 150 mg 150 mg PO DAILY Mental 01/07/25 01/07/25 Unknown History
capsule,extended release 24 hr Health/Anxiety
zonisamide 100 mg capsule 100 mg PO HS Seizures 01/07/25 01/07/25 Unknown History
Active Medications
Generic Name Dose Route Start Last Admin
Trade Name Chavezq PRN Reason Stop Dose Admin
Bupropion HCl 100 mg 01/08/25 20:00 01/09/25 19:55
Bupropion Regular Release 100 Mg Tablet TUBE 02/05/25 19:59 100 mg
Q12 MICHELLE Administration
Cefepime HCl 1,000 mg 01/08/25 06:00 01/09/25 17:56
Cefepime Hcl 1,000 Mg/11.3 Ml Vial IV 1,000 mg
Q6H MICHELLE Administration
Fentanyl Citrate 50 mcg 01/08/25 10:55 01/09/25 13:00
Fentanyl (50 Mcg/Ml) 100 Mcg/2 Ml Ampul IV 01/22/25 10:54 50 mcg
[id number] PRN Administration
see protocol
Protocol
Doxycycline Hyclate 100 mg/ 260 mls @ 260 mls/hr 01/08/25 00:00 01/09/25 11:23
Sodium Chloride IV 260 mls
Q12@0000,1200 MICHELLE Administration
Valproate Sodium 500 mg/ 55 mls @ 55 mls/hr 01/08/25 00:00 01/08/25 01:46
Sodium Chloride IV 02/05/25 00:00 Not Given
On Hold: 01/08/25 01:40 Q12@0000,1200 MICHELLE
Fentanyl Citrate 1,000 mcg in 100 mls @ 0 mls/hr 01/08/25 11:00 01/09/25 17:54
Sublimaze IV 100 mls
PER PROTOCOL MICHELLE Administration
Protocol
Per Protocol
Propofol 1,000,000 mcg in 100 mls @ 0 mls/hr 01/08/25 11:00 01/09/25 15:04
Diprivan IV 100 mls
PER PROTOCOL MICHELLE Administration
Protocol
Per Protocol
Dexmedetomidine HCl 400 mcg in 100 mls @ 0 mls/hr 01/09/25 13:45
Precedex IV
PER PROTOCOL MICHELLE
Protocol
Per Protocol
Sodium Chloride 1,000 mls @ 100 mls/hr 01/09/25 14:00 01/09/25 14:06
Nss IV 01/10/25 09:59 1,000 mls
.Q10H MICHELLE Administration
Nicotine 14 mg 01/08/25 19:10 01/09/25 07:40
Nicotine 14 Mg Patch TRANSDERM 02/05/25 19:09 14 mg
DAILY MICHELLE Administration
Non-Formulary Item 1 0 mg 01/08/25 22:00 01/09/25 00:33
Unit (Clobazam 20 TUBE 02/05/25 21:59 20 mg
Mg Tablet 1 Tablet HS MICHELLE Administration
Po Nightly)
Non-Formulary Medication 10 mg 01/08/25 22:00
Perampanel [Fycompa] PO 02/05/25 21:59
HS MICHELLE
Pantoprazole Sodium 40 mg 01/08/25 08:00 01/09/25 07:41
Pantoprazole Sodium 40 Mg/10 Ml Vial IV 02/05/25 07:59 40 mg
DAILY MICHELLE Administration
Patch Removal 0 patch 01/08/25 22:00 01/08/25 21:25
Remove Nicotine Patch REMOVE 02/05/25 21:59 1 patch
HS MICHELLE Administration
Polyethylene Glycol 17 grams 01/08/25 08:00 01/09/25 07:40
Polyethylene Glycol Powder 17 Grams Packet TUBE 02/05/25 07:59 17 grams
DAILY MICHELLE Administration
Quetiapine Fumarate 100 mg 01/10/25 22:00
Quetiapine 100 Mg Tablet TUBE 02/07/25 21:59
HS MICHELLE
Quetiapine Fumarate 50 mg 01/10/25 08:00
Quetiapine 25 Mg Tablet TUBE 02/07/25 07:59
DAILY MICHELLE
Risperidone 2 mg 01/08/25 22:00 01/08/25 21:25
Risperidone 2 Mg Tablet TUBE 02/05/25 21:59 2 mg
HS MICHELLE Administration
Sodium Chloride 0 flush 01/07/25 23:00
Sodium Chloride 0.9% (Flush) Syringe IV 02/04/25 22:59
PER PROTOCOL MICHELLE
Sodium Chloride 10 ml 01/08/25 08:00 01/09/25 07:41
Sodium Chloride 0.9% (Preservative Free) 10 Ml Vial IV 02/05/25 07:59 10 ml
DAILY MICHELLE Administration
Sterile Water 10 ml 01/08/25 06:00 01/09/25 17:56
Sterile Water For Injection 10 Ml Vial IV 02/05/25 05:59 10 ml
Q6H MICHELLE Administration
Venlafaxine HCl 50 mg 01/09/25 08:00 01/09/25 15:05
Venlafaxine 50 Mg Regular Release Tablet TUBE 02/06/25 07:59 50 mg
Q8H MICHELLE Administration
Zonisamide 100 mg 01/08/25 22:00 01/09/25 00:37
Zonisamide Susp 10 Mg/Ml In Oral Syringe TUBE 02/05/25 21:59 100 mg
HS MICHELLE Administration
Review of Systems
-
Unable to obtain full review of systems at this time due to: Patient Intubation
Physical Exam
-
General: Appears Chronically Ill
HEENT: Moist Mucous Membranes; Negative Jaundice
Cardiology: Normal Sinus Rhythm, S1 and S2
Pulmonary: Clear; Negative Wheezes
GI: Soft
Musculoskeletal: No Clubbing, No Cyanosis and No Edema
Extremities: Negative Phlebitic Signs
Skin: Warm, Dry and No Ecchymosis; Negative Rash or Lesions
Hematologic / Lymphatic: No Lymphadenopathy and No Petechiae
Labs
Lab Results
WBC 4.7 10^3/uL (4.8-10.8) L 01/09/25 04:29
RBC 3.44 10^6/uL (4.70-6.10) L 01/09/25 04:29
Hgb 11.4 g/dL (13.0-18.0) L 01/09/25 04:29
Hct 32.9 % (39.0-52.0) L 01/09/25 04:29
MCV 95.6 fL (80.0-94.0) H 01/09/25 04:29
MCH 33.1 pg (27.0-31.0) H 01/09/25 04:29
MCHC 34.7 g/dL (33.0-37.0) 01/09/25 04:29
RDW 15.3 % (11.5-14.5) H 01/09/25 04:29
Plt Count 46 10^3/uL (130-400) L 01/09/25 04:29
MPV 12.0 fL (7.4-10.4) H 01/09/25 04:29
Abs Immat Gran (auto) Cancelled 01/07/25 21:12
Absolute Neuts (auto) Cancelled 01/07/25 21:12
Absolute Lymphs (auto) Cancelled 01/07/25 21:12
Absolute Monos (auto) Cancelled 01/07/25 21:12
Absolute Eos (auto) Cancelled 01/07/25 21:12
Absolute Basos (auto) Cancelled 01/07/25 21:12
Immature Gran % Cancelled 01/07/25 21:12
Neutrophils % Cancelled 01/07/25 21:12
Lymphocytes % Cancelled 01/07/25 21:12
Monocytes % Cancelled 01/07/25 21:12
Eosinophils % Cancelled 01/07/25 21:12
Basophils % Cancelled 01/07/25 21:12
Creatinine 0.8 mg/dL (0.7-1.3) 01/09/25 04:29
Vital Signs
Vital Signs
Temp Pulse Resp BP Pulse Ox
97.1 F 63 18 109/84 97
01/09/25 20:26 01/09/25 20:00 01/09/25 20:00 01/08/25 17:17 01/09/25 20:25
--- NOTE | 2025-01-09 21:10 | PTCARENOTE ---
Assumed care of pt at 1900. Received pt intubated, #7.5 ETT 23cm at lip, AC 18/450/50/5, sedated on Propofol at 40mcg/kg/min and Fentanyl at 75mcg/hr, see med titration flowsheets on worklist for details. Physical assessment as documented in nursing
shift assessment flowsheet. Pt in 4pt soft restraints + 4 side rails at start of shift, restraints on b/l ankles removed, remains in b/l soft wrist + 4 side rails. SR 60s/SB 50s on monitor.
[2025-01-09] MEDS: RISPERDAL 2 MG TUBE (21:31)
[2025-01-10] VITALS (10 sets, daily range): BP systolic 113–149; BP diastolic 82–108; BMI 17.1
--- NOTE | 2025-01-10 01:19 | PTCARENOTE ---
Assessment unchanged. Remains on same vent settings, same infusions. Phuc hugger placed on patient as temp dropped as low as 95.3. SB 50s on monitor.
[2025-01-10 04:01] LABS: HCO3 24.8 mmol/L (21-28); O2 Saturation % 98.2 % (94-98); PCO2 45 mmHg (35-48); PO2 95 mmHg (83-108); pH 7.35 (7.35-7.45)
[2025-01-10 04:21] LABS: Hematocrit 30.4 % (39.0-52.0); Hemoglobin 10.5 g/dL (13.0-18.0); Mean Corp Hgb Conc. 34.5 g/dL (33.0-37.0); Mean Corpuscular Volume 95.6 fL (80.0-94.0); Mean Platelet Volume 12.1 fL (7.4-10.4); Platelet Count 37 10^3/uL (130-400); Red Blood Cell Count 3.18 10^6/uL (4.70-6.10); Red Cell Dist. Width 15.7 % (11.5-14.5)
[2025-01-10 04:48] LABS: % Basophils 0.3 % (0-2); % Lymphocytes 19.9 % (20.5-51.1); % Monocytes 13.6 % (1.7-9.3); % Neutrophils 64.2 % (42.2-75.2); Absolute Immature Granulocytes 0.1 10^3/uL (0-0.05); Absolute Lymphocytes 0.8 10^3/uL (1.2-3.4); Absolute Monocytes 0.5 10^3/uL (0.1-0.6); Absolute Neutrophils 2.5 10^3/uL (1.4-6.5); Nucleated Red Blood Cells % 0 % (-)
--- NOTE | 2025-01-10 04:52 | PTCARENOTE ---
Assessment unchanged. No changes in meds or vent settings. ETT repositioned/retaped by RT. SR 60s on monitor. CHG cloth bath done and linens changed.
[2025-01-10 04:59] LABS: Blood Urea Nitrogen 27 mg/dl (9-20); Calcium 8.3 mg/dl (8.4-10.2); Carbon Dioxide 20 mmol/L (22-30); Chloride 114 mmol/L (98-107); Estimated Creatinine Clearance 91 ml/min; Glucose 88 mg/dl (70-99); Magnesium 2.1 mg/dl (1.6-2.3); Phosphorus 2.3 mg/dl (2.5-4.5); Potassium 4.5 mmol/L (3.5-5.1); Sodium 137 mmol/L (135-145); Triglycerides 319 mg/dl (10-149); eGFR > 60.00
[2025-01-10] MEDS: DIPRIVAN 100 IV (05:03)
[2025-01-10] MEDS: STERILE WATER FOR INJECTION 10 ML IV ×4 (05:03→23:18)
[2025-01-10] MEDS: MAXIPIME 1000 MG IV ×4 (05:03→23:18)
[2025-01-10] MEDS: MIRALAX 17 GRAMS TUBE (07:33)
[2025-01-10] MEDS: NICODERM TRANSDERMAL 14 MG TRANSDERM (07:33)
[2025-01-10] MEDS: WELLBUTRIN REGULAR RELEASE 100 MG TUBE (07:34)
[2025-01-10] MEDS: NSS (PRESERVATIVE FREE) 10 ML IV (07:34)
[2025-01-10] MEDS: EFFEXOR 50 MG TUBE (07:34)
[2025-01-10] MEDS: SEROQUEL 50 MG TUBE (07:34)
[2025-01-10] MEDS: PROTONIX IV 40 MG IV (07:34)
--- NOTE | 2025-01-10 08:00 | PTCARENOTE ---
Addendum entered by Kayla Small RN 01/10/25 12:05:
0800- right radial ruth zeroed and functioning.
Original Note:
pt received from previous rn, ett to vent, see settings as charted. sb to nsr on monitor, propofol and fentanyl continue as per order. pt turned and repositioned, am care provided. all safety precautions in place.
--- NOTE | 2025-01-10 08:22 | W.PN.ID1 ---
Date of Service
Date of Service: January 10, 2025
Today's Communication
Continue antibiotics.
Assessment / Plan
# Fever
# Pancytopenia
# Change in mental status
# Recent camping with tick exposure
# Hypoxemic respiratory failure; on vent
# Cough, congestion, N/V/D
# Hyponatremia
# History of seizure disorder
# Cachexia
# Tobacco/marijuana use
-COVID/Flu neg
-Urine legionella, S. pneumo neg
-UA neg
-CXR minimal LLL opacity
- Blood cx pending
- Check sputum cx
- Lyme serology pending ( can be false negative in early disease)
- Blood parasite smear negative
- Anaplasma and Ehrlichia PCR pending
- HIV negative
- Continue doxycycline and cefepime
- Follow temps/CBC
Patient remains critically ill with VDRF and ICU
Further recommendations as additional data is returned.
����������������������������������������������������������
Chief Complaint
-: Pneumonia
Subjective / Review of Systems
Patient seen and examined. Remains on vent at this time.
Vital Signs / Physical Exam
Vital Signs
Vital Signs
Temp Pulse Resp BP Pulse Ox
97.8 F 63 18 126/92 98
01/10/25 07:00 01/10/25 06:00 01/10/25 06:00 01/09/25 20:29 01/10/25 07:33
Physical Exam
Constitutional: Acutely Ill and Non-toxic
Eyes: No Conjunctival Hemorrhage and Sclera Anicteric
Oropharyngeal: Other (ET tube in place.)
Cardiovascular: S1/S2; Negative S3/S4
Pulmonary: Coarse and Other (On vent); Negative Wheezes or Rhonchi
Gastrointestinal: Soft, Non Distended, Normal Bowel Sounds and No Rebound
Extremities: Negative Edema, Cyanosis or Erythema
Neurological: Other (Sedated)
Psychological: Calm
Objective Data
Lab Data
Lab Results
01/10/25 03:52
01/10/25 03:52
PT 12.5 Sec (11.4-14.6) 01/07/25 21:12
INR 0.89 01/07/25 21:12
APTT 36.2 Sec (23.4-35.0) H 01/07/25 21:12
Estimated Creat Clear 91 ml/min 01/10/25 03:52
Lactic Acid 0.8 mmol/L (0.7-2.0) 01/08/25 15:19
Total Bilirubin 0.5 mg/dl (0.2-1.3) 01/07/25 21:12
AST 21 U/L (17-59) 01/07/25 21:12
ALT < 10 U/L (0-50) 01/07/25 21:12
Alkaline Phosphatase 55 U/L (38-126) 01/07/25 21:12
Most recent labs reviewed.
Micro Results:
01/07/25 21:12 Blood Culture - Preliminary
Blood/Venous No Growth in 48 hours- Final report to follow
01/08/25 13:56 Respiratory Culture - Preliminary
Endotracheal Yeast
Gram Stain - Preliminary
01/08/25 00:01 Urine Culture - Final
Urine NO GROWTH
01/07/25 21:12 Blood Culture - Preliminary
Blood/Venous Positive culture in progress
Gram Stain - Preliminary
01/08/25 13:18 Blood Parasites Smear - Final
Blood/Venous
01/08/25 10:00 Nasal Screen MRSA (PCR) - Final
Nose MRSA not detected - performed by PCR methodology.
01/08/25 00:23 Legionella Urinary Antigen - Final
Urine Negative for Legionella pneumophila Serogroup 1 antigen.
A negative result does not rule out the possiblity of
Legionella infection due to other serogroups or species of
Legionella. Clinical correlation is recommended.
Streptococcus pneumoniae Antigen (M - Final
Negative for Streptococcus pneumoniae antigen.
A negative result does not exclude infection with
Streptococcus pneumoniae. Clinical correlation is
recommended.
01/07/25 21:12 Influenza Types A & B (COURTNEY) - Final
Nasal Swab Negative for Influenza A & B, NAAT
Negative results must be combined with clinical observations
and patient history.
Nucleic Acid Amplification test (NAAT)performed on the
[employer] platform.
01/08/25 CXR: Minor opacity in the left lung base
01/08/25 AXR: Moderate fecal matter throughout the colon. No evidence of intestinal obstruction.
01/07/25 CXR: Probable left upper lobe pneumonia. Recommend follow-up imaging after treatment to rule out underlying mass.
01/07/25 CXR: Improved aeration in the left upper lobe. No convincing focal infiltrates. Findings suggesting mild diffuse pneumonitis and/or pulmonary interstitial edema.
01/07/25 CT head: No acute intracranial abnormality noted.
--- NOTE | 2025-01-10 08:27 | W.PN.INTV ---
Today's Communication / Plan
Recommendations
Plan for SAT/SBT today
Continue AEDs and hopefully we can maintain PO access after extubation otherwise we will need to give IV AEDs while we await for PO access to be re-established
Stopped systemic steroids on 01/09 as this potentially could have been contributing to his severe agitation/aggressive behavior
Recommend psych consult
Advised to the father to not come back into the room to visit his son unless he speaks to the nurse first given the patient's severe aggressive/violent behavior after he saw his father on 01/09
Antibiotics
AEDs per neurology
Continue holding valproic acid given its toxic levels on admission
If extubated, then obtain TICKET COLLECTOR eval prior to starting PO diet
Continue ICU level of care for this critically ill patient
Assessment
-
Assessment: 44-year-old tobacco smoker male with a past medical history of seizure disorder who presented with slurred speech, weakness and shortness of breath for 3 days. Patient is from [place] and was camping with family here in [place]
for the past 3 days. Per documentation, the daughters had removed a tick from the patient on the day prior to arrival, however unclear if the tick was engorged or not. The patient has a known seizure disorder on several AEDs, and has not had
seizures in many years and he does not use illicit drugs although he does smoke marijuana. In the ER he initially was afebrile to 99.9 �F, pulse rate 124, respiratory rate 22, BP 113/86 and saturating 71% on room air. Patient had to be intubated
due to continued altered mental status for airway protection purposes. Initial labs showed leukopenia to 4.1, Hb 11.5, platelet count 57, 33% bands, serum sodium 126, urinalysis with no signs of UTI, and urine drug screen for marijuana +
benzodiazepines. Valproic acid level was drawn and found to be in toxic range at 169.2 ug/ml. Urine and blood cultures collected. Initial CXR showed suspected left upper lobe pneumonia. In the ER he was given a total of 1.5 L NS 0.9%, Zosyn,
DuoNebs and Tylenol. Given that he was intubated, he was admitted to the ICU for further care and Mobility Architect Manager services consulted for additional management/recommendations.
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
Impression:
#Acute respiratory failure with hypoxia + hypercapnia requiring mechanical ventilation
#Suspected left-sided CAP (?aspiration given his AMS)
#Pancytopenia with significant bandemia at 33% on admission
#Hypotonic hyponatremia
#Vomiting/diarrhea
#Seizure disorder with supratherapeutic/toxic valproic acid levels
#Depression/anxiety
#Tick found on body (unclear if engorged or not and no reports of signs of targetoid lesion)
#Tobacco use
Plan:
- Patient initially was hypoxic down to 71% and encephalopathic, hence he was intubated for airway protection
- Imaging from 01/08 showed left basilar opacification although initial CXR showed suspected multifocal small patchy opacities (MIS/RUL)
- Continue with broad-spectrum antibiotics with cefepime/Doxy
- Continue with mechanical ventilation with daily SAT/SBT if clinically appropriate -patient got extremely agitated yesterday after his dad visited. SBT aborted. Will try SBT again today and extubate with precedex
- Maintain plateau pressure <30 and titrate FiO2 + PEEP to keep SpO2 >90-94%
- Continue aspiration precautions; keep HOB >30-45�
- prn nebulized bronchodilators - not currently bronchospastic
- Oropharyngeal + deep ETT suctioning with subglottic as needed
- Daily CXR + blood gas
- Daily vent adjustments as needed based on blood gas and SaO2
- Low level of sedation with goal RASS as 0 to -2
- Patient has not been wheezing and unclear if he has COPD as there are no prior spirometry/PFT studies for me to review; patient had been on Solu-Medrol 40 mg IV q12hr, and this was stopped on 01/09. Given his agitation on 01/09, unclear if the
Solu-Medrol was contributing to this
- Continue with broad-spectrum antibiotics with cefepime + doxycycline s/p IV vanco on 01/08
- Follow-up infectious workup including blood cultures x 2 (collected 01/07), urine culture (collected 01/08), and respiratory culture (from ETT - grew yeast, likely colonization)
- 1 set of blood cultures from 01/07 has grown diphtheroids � suspected contaminant
- Follow-up Lyme serology; HIV antigen/antibody combo is negative;, Ehrlichia and Anaplasma PCR is still pending
- ID consulted - recs appreciated
- Continue AEDs except for valproic acid given its toxic levels, which we will continue to trend; neurology consulted and recs appreciated; family needs to bring in his Fycompa
- Once patient is extubated, hopefully we can maintain PO access otherwise we will need to reach out to neurology to see if alternative IV AEDs are available to prevent a seizure while we await PO access to be reestablished to give him his oral AED
medications
- If patient does not awaken as expected, would consider rechecking EEG (conventional perhaps), and consider LP +/- MRI brain, although he does have metallic screws in his left and right glenoid so do not think the MRI would be feasible
- Maintain MAP>65
- Nicotine patch
- Replete electrolytes with K>4, Mg>2
- Maintain euglycemia with goal BG 140-180; A1c: 4.7 on 01/09/2025
- Trend H/H and transfuse if needed to keep Hb>7g/dL; keep plt>20k, unless there is concern for bleeding then keep plt>50k
- Early nutrition - tube feeds were going to be started, but hold off for now while we are preparing for extuabtion; once extubated, will check TICKET COLLECTOR eval prior to starting PO diet
- DVT ppx: SCDs given his pancytopenia with significant thrombocytopenia; if platelet count remained stable for >48 hours then will start heparin SQ at that time
Code status: Full code
Continue ICU level of care for this critically ill patient
Critical care statement: A total of 41 minutes of critical care time was provided for this patient today. This includes management of unstable vital signs, evaluation of the patient at bedside, reviewing the patient's pertinent medical records
including radiographs, microbiology, laboratory evaluations, and discussion with primary team, consultants, pharmacy, nutrition, physical therapy, case management, charge nurse, critical care nursing, and respiratory therapy.
Subjective Dataa
Subjective Data
Date of Service:
Date of Service: January 10, 2025
Chief Complaint: Mobility Architect Manager Follow Up
Subjective:
Pt seen and evaluated this AM. Remains intubated on AC/CMV 18/450/40%/5, breathing at 18 breaths/min, VTe 469 cc and PIP 18 cmH2O. End-tidal CO2: 24. HR 63, BP via A line: 117/70 and SpO2 97%. Currently sedated with fentanyl at 25 mcg/h and
propofol at 10 mcg/kg/min. When sedation lowered he nods his head to answers questions and he currently appears calm but he occasionally tries to lunge and violently sit up, although he is more directable today than yesterday.
Review of Systems
General: Other (Unobtainable as patient is this patient is intubated this morning)
Objective Data
Data Reviewed
Vital Signs / I&O / Oxygen:
Vital Signs
Temp Pulse Resp BP Pulse Ox
97.8 F 60 18 126/92 97
01/10/25 07:00 01/10/25 08:00 01/10/25 08:00 01/09/25 20:29 01/10/25 08:00
Intake and Output
01/09/25 01/10/25 01/11/25
06:59 06:59 06:59
Intake Total 1488.8 / 1499.8 2402.5 / 2520.5 472.0 / 472.0
Output Total 1400 / 1440 1275 / 1285 195 / 195
Balance 88.8 / 59.8 1127.5 / 1235.5 277.0 / 277.0
SaO2 [A/C] 98
SaO2 97
Physical Exam
General: Respiratory Distress (negative), Chills (negative) and Sweats (negative)
HEENT: Normocephalic and Anicteric
Cardiovascular: S1-S2 and Peripheral Edema (negative)
Respiratory: Wheeze (negative), Crackles (negative), Rhonchi (negative), Non-Labored Respirations and ET Tube (Mechanical breath sounds heard bilaterally)
GI: Soft, Non Distended, Non Tender and Normal Bowel Sounds
Neurology: Tremors (negative), Other (Sedated however when sedation lowered he nods his head appropriately to my questions) and Other (Occasionally becomes agitated/violent and tries to remove tubes and jump out of bed)
Skin: Warm, Dry, Cyanosis (negative) and Jaundice (negative)
Labs/Micro/Reports
Lab Data
01/10/25 03:52
01/10/25 03:52
Laboratory Results
01/09/25 01/10/25
12:31 03:52
pH 7.28 L 7.35
pCO2 51 H 45
pO2 192 H 95
HCO3 24.0 24.8
O2 Delivery Level 40%
Microbiology
01/07/25 21:12 Blood/Venous Blood Culture - Preliminary
No Growth in 48 hours- Final report to follow
01/08/25 13:56 Endotracheal Respiratory Culture - Preliminary
Yeast
01/08/25 13:56 Endotracheal Gram Stain - Preliminary
01/08/25 00:01 Urine Urine Culture - Final
NO GROWTH
01/07/25 21:12 Blood/Venous Blood Culture - Preliminary
Positive culture in progress
01/07/25 21:12 Blood/Venous Gram Stain - Preliminary
01/08/25 13:18 Blood/Venous Blood Parasites Smear - Final
01/08/25 10:00 Nose Nasal Screen MRSA (PCR) - Final
MRSA not detected - performed by PCR methodology.
01/08/25 00:23 Urine Legionella Urinary Antigen - Final
Negative for Legionella pneumophila Serogroup 1 antigen.
A negative result does not rule out the possiblity of
Legionella infection due to other serogroups or species of
Legionella. Clinical correlation is recommended.
01/08/25 00:23 Urine Streptococcus pneumoniae Antigen (M - Final
Negative for Streptococcus pneumoniae antigen.
A negative result does not exclude infection with
Streptococcus pneumoniae. Clinical correlation is
recommended.
01/07/25 21:12 Nasal Swab Influenza Types A & B (COURTNEY) - Final
Negative for Influenza A & B, NAAT
Negative results must be combined with clinical observations
and patient history.
Nucleic Acid Amplification test (NAAT)performed on the
[employer] platform.
[2025-01-10 08:30] LABS: Reticulocyte Count 1.3 % (0.4-2.8)
[2025-01-10 08:45] LABS: ALT (SGPT) < 10 U/L (0-50); AST (SGOT) 19 U/L (17-59); Albumin 2.2 g/dl (3.5-5.0); Alkaline Phosphatase 53 U/L (38-126); Direct Bilirubin 0.5 mg/dl (0.0-0.4); LDH 164 U/L (120-246); Total Bilirubin 0.5 mg/dl (0.2-1.3); Total Protein 4.7 g/dl (6.3-8.2)
[2025-01-10] MEDS: SUBLIMAZE 100 IV (09:27)
--- NOTE | 2025-01-10 10:15 | W.PN.HOSP.TC ---
Today's Communication/Plan
-
Continue with antibiotics
Wean vent per pulmonary
Follow CBC
Assessment / Plan
Assessment / Plan
44-year-old male presented to ER for cough and congestion. He was weak and tired and had vomiting and diarrhea. Patient is from [place] and camping with family. He also had a tick on his body which was pulled out. Patient was initially placed
on supplemental oxygen and then intubated. History of seizures but has not had one in many years. Patient is a smoker and also uses marijuana.
# Acute hypoxic respiratory failure
VDRF
Possible pneumonia-chest x-ray initially shows concern for left upper lobe infiltrate which resolved with intubation. Current chest x-rays is concerning for bilateral interstitial and airspace disease throughout both lungs.
? COPD exacerbation
Initial gas pH 7.35/pCO2 47/PO2 236/bicarb 25.9
Blood culture sent from the ER-shows gram-positive bacilli in 1 out of 2 bottles-culture in progress
Urine Legionella and strep pneumonia antigen-negative
Sedation with propofol, fentanyl
Continue doxycycline, cefepime
Solu-Medrol for COPD exacerbation per pulmonary-now discontinued
Infectious disease and pulmonary consultations
Vent management per pulmonary
# Hypotension-I doubt this is septic shock this is likely secondary to medicines such as large dose of propofol. Patient has been off of Levophed and only required it for short duration. Remains stable hemodynamically
# TME/altered mental status-secondary to hypoxia. Elevated valproate level-repeat improved. History of seizures.
Neurology input noted-suspected encephalopathy
Head CT-no acute changes
Urine drug screen-Marijuana,
Valproate level high at 169. Hold valproic acid-improved levels
# Vomiting and diarrhea-check stool studies if possible and has diarrhea
# Tick was retrieved from the body
Lyme serology ordered but it might be too early
Infectious disease following
# Hyponatremia likely hypovolemic
Normalized
Continue IV fluids
# History of seizures-patient is on clobazam, zonisamide, Perampanel, Depakote as outpatient
EEG- No SZ
Neuro eval.
Valproate level-169. Hold valproic acid
Continue Zonegran, clobazam, perampanel
# Pancytopenia-appreciate hematology input. Clinical concern is either infection or medication related especially low platelets with valproic acid. Continue to follow CBC
# Anxiety and depression-
Continue Effexor, risperidone
Wellbutrin on hold
# GI prophylaxis-PPI
# DVT prophylaxis-Lovenox
# Full code
Discussed with RN
Total time spent on today's encounter was 52 minutes which included time spent in counseling the patient/family regarding diagnosis and treatment plan as listed above, goals of care, and symptom management. Case was discussed with nursing staff,
specialists, and care coordinators/case management. All labs and imaging personally reviewed by me. Remainder the time spent in detailed review of previous records, lab data, imaging, and other medical provider documentation.
Part of this note was created using voice recognition system. Occasional wrong word or��sound alike� substitutions may have inadvertently occurred due to the inherent limitations of voice recognition software. If noted kindly bring it to my
attention for correction.
Anticipated Discharge: > 48 hours
Subjective/Interval History
-
Date of Service: January 10, 2025
Last evening events of agitation noted.
Patient remains intubated and sedated.
Patient is comfortable deeply sedated.
Objective Data
-
Labs:
Laboratory Results
01/10/25 01/10/25
03:52 07:54
WBC 4.0 L
Hgb 10.5 L
Hct 30.4 L
Plt Count 37 L
HCO3 24.8
Sodium 137
Potassium 4.5
Chloride 114 H
Carbon Dioxide 20 L
BUN 27 H
Creatinine 0.8
Glucose 88
Calcium 8.3 L
Total Bilirubin 0.5 Cancelled
AST 19 Cancelled
ALT < 10 Cancelled
Alkaline Phosphatase 53 Cancelled
Vital Signs:
Vital Signs
Temp Pulse Resp BP Pulse Ox
97.8 F 60 18 126/92 97
01/10/25 07:00 01/10/25 08:00 01/10/25 08:00 01/09/25 20:29 01/10/25 08:00
I&O
01/09/25 01/10/25 01/11/25
06:59 06:59 06:59
Intake Total 1488.8 / 1499.8 2402.5 / 2520.5 472.0 / 472.0
Output Total 1400 / 1440 1275 / 1285 195 / 195
Balance 88.8 / 59.8 1127.5 / 1235.5 277.0 / 277.0
Review of Systems
-
Unable to obtain full review of systems at this time due to: Patient Intubation
Physical Exam
-
General: Comfortable
Respiratory: Clear to Auscultation (Anteriorly) and Non Labored Respirations; Negative Accessory Resp Muscle Use
GI: Soft, Nondistended and Normal Bowel Sounds
Neuro: Sedated
Data Reviewed
-
Labs: Labs Reviewed by me
--- NOTE | 2025-01-10 10:29 | RESPNOTE ---
ETT advanced from 21cm at lips to 24cm at lips per Dr. Pedersen. ETT also moved to center.
[2025-01-10] MEDS: PRECEDEX 100 IV ×2 (10:31→19:25)
[2025-01-10] MEDS: VIBRAMYCIN 260 MG IV ×2 (11:44→23:02)
--- NOTE | 2025-01-10 12:05 | PTCARENOTE ---
propofol and fentanyl being weaned down, precedex started, see all flowsheets. pt drowsy, awakens to name and follows simple commands. assessment unchanged further.
--- NOTE | 2025-01-10 13:03 | RESPNOTE ---
Patient extubated to 6L nasal cannula per MD order.
--- NOTE | 2025-01-10 13:12 | PTCARENOTE ---
propofol, fent and dex all off for extubation. Dr. Pedersen at bedside, pt extubated to 2LNC. pt agitated, trying to yell, follows simple commands, confused to place and time. pt remains restrained for attempting to pull tubes and agitation.
Slava ordered to have precedex gtt on 0.2mcg/kg/hr.
--- NOTE | 2025-01-10 13:15 | PTCARENOTE ---
propofol, fent and dex all off for extubation. Dr. Pedersen at bedside, pt extubated to 6LNC. pt with weak productive cough. pt agitated, trying to yell, follows simple commands, confused to place and time. pt remains restrained for attempting to
pull tubes and agitation. Dr. Pedersen ordered to have precedex gtt on 0.2mcg/kg/hr.
--- NOTE | 2025-01-10 14:29 | PTCARENOTE ---
right radial ruth removed per Dr. Pedersen, pt attempting to kick staff, yelling profanities, extremely agitated, Dr. Pedersen remains aware, precedex increased per order.
--- NOTE | 2025-01-10 14:32 | PTCARENOTE ---
right radial ruth removed per Dr. Pedersen pressure dressing c/d/i, pt attempting to kick staff, yelling profanities, extremely agitated, Dr. Pedersen remains aware, precedex increased per order.
[2025-01-10] MEDS: EFFEXOR TUBE (15:19)
--- NOTE | 2025-01-10 15:28 | CON.MD ---
Consultation - Medical
-
44 yr old M w/ PMH of seizure d/o (no seizures in several yrs) presenting with hypoxic respiratory failure and mental status change, intubated on admission and extubated today. Pt reportedly with regular THC use, no other reported substance use and
no etoh use since 1988.
Pt is visiting from [place], came 4 days ago and was on camping trip. MEDICAL I D SALES reportedly was febrile, lethargic, anorexic and confused, with recent hx of productive cough & SOB. Tick was found and pulled off leg - thus far serologies are negative and
no typical rash observed, however potential for false negatives this early.
CXR showing MIS infiltrate. FOund to be pancytopenic and with valproate level of 169 - valproate was discontinued.
Pt with psychotropic regimen from home of the following: wellbutrin 200mg, risperidone 2mg hs, effexor 150mg daily. With history of anxiety and depression as per report.
Pt is unable to participate in meaningful interview at this time - seen at bedside, in soft restraints. Mumbling to self, does not respond appropriately to questions or to name being called. Was agitated earlier today following extubation and
although calmer at time of interview is observed to exhibit psychomotor agitation, moving hands around purposelessly and actively mumbling to self.
Unspecified anxiety/depression as per hx - will need to reassess once pt is able to participate in meaningful interview as unclear why pt is on risperidone at home
TME/possibly agitated delirium
MSE: poor eye contact, speech is soft and mumbling. Unable to assess mood, thought content as pt unable to answer meaningfully. Affect is confused. Thought process disjointed. Not oriented. Memory not formally tested. Insight/judgement poor.
Added risperidone 0.5mg daily, continue 2mg HS - with hopes of managing agitation until cognition improves closer to baseline
- also ordered risperidone 0.5mg bidprn acute agitation
Discontinued seroquel (added today), would optimize risperidone as pt already on this medication from home
Decreased wellbutrin to 50mg Q12H instead of 100mg Q12H as may contribute to/worsen agitation
Continue effexor 50mg Q8H via tube - may also contribute to agitation but higher likelihood of causing withdrawal and complicating presentation if effexor is decreased, would monitor for now
Continue precedex for now (was started earlier today for agitation)
- pt reported by family to not drink etoh since 1988, however pt is currently unable to corroborate this and given acute change in mental status MEDICAL I D SALES cannot r/o etoh w/d at this time, would monitor for improvement in presentation and adjust
accordingly
Psychiatry will follow and reassess
[2025-01-10] MEDS: ZYPREXA 10 MG IM (18:17)
[2025-01-10] MEDS: DEPACON 55 MG IV (18:17)
--- NOTE | 2025-01-10 18:29 | PTCARENOTE ---
pt continues to agitated and combative, Dr. Pedersen at bedside, zyprexa given as per order, precedex continues.
[2025-01-10] MEDS: BRIVIACT 100 MG IV (19:24)
[2025-01-10 20:10] LABS: B.E. 0.9 mmol/L; HCO3 27.1 mmol/L (21-28); O2 Saturation % 89.1 % (94-98); PCO2 49 mmHg (35-48); pH 7.35 (7.35-7.45)
[2025-01-10 20:12] LABS: PO2 56 mmHg (83-108)
--- NOTE | 2025-01-10 21:07 | PTCARENOTE ---
pt sats decreased to low 80's @ change of shift, maxed on MF, no improvement in sats, NRB applied and PLANT TECH notified, ABG sent, PO2 56, RT applied HF 50L 70%, repeat ABG ordered, pt increasingly agitated, not following commands c garbled speech, 4
point restraints, Dex gtt per worklist, NSR on the monitor, lungs rhonchi and coarse throughout, weak cough unable to clear secretions, BSx4, Gonzalez yellow output, safe environment maintained, otherwise refer to documentation.
[2025-01-10] MEDS: NON-FORMULARY ITEM TUBE (21:33)
[2025-01-10] MEDS: RISPERDAL TUBE (21:35)
[2025-01-10] MEDS: ZONEGRAN TUBE (21:36)
--- NOTE | 2025-01-10 22:20 | W.PN.ONC2 ---
Today's Communication / Plan
-
Clinically stable to improved.
No evidence of hemolysis.
Observe for improvement in cytopenias as clinical status improves.
Impression
Impression
Thrombocytopenia, suspect related to valproic acid
Anemia, leukopenia - suspect related to acute illness
Change in mental status
Plan
Plan
Association between valproic acid and thrombocytopenia is well established.
His other cytopenias are mild and can be attributed to probable infectious illness.
Platelets should beging to improve 1-3 days after holding valproic acid. Holding drug not an option here but suspect platelets will improve with normalization of valproic acid level.
T/C splenic U/S once pt is clinically stable.
Subjective/Objective
Chief Complaint
Heme/Onc follow up of pancytopenia
Subjective
Patient was seen earlier today, prior to extubation, and was unable to give history
Vital Signs:
Vital Signs
Temp Pulse Resp BP Pulse Ox
97.6 F 82 15 147/106 99
01/10/25 19:51 01/10/25 22:00 01/10/25 22:00 01/10/25 22:00 01/10/25 22:00
Lab Results:
Laboratory Data
WBC 4.0 10^3/uL (4.8-10.8) L 01/10/25 03:52
Hgb 10.5 g/dL (13.0-18.0) L 01/10/25 03:52
Plt Count 37 10^3/uL (130-400) L 01/10/25 03:52
PT 12.5 Sec (11.4-14.6) 01/07/25 21:12
INR 0.89 01/07/25 21:12
APTT 36.2 Sec (23.4-35.0) H 01/07/25 21:12
eGFR > 60.00 01/10/25 03:52
Physical Exam
HEENT: No Jaundice or Moist Mucous Membranes
Cardiology: Normal Sinus Rhythm, S1 and S2
Pulmonary: Clear
GI: Soft; No Distended
Extremities: No C/C/E and Other (no rashes)
Neuro: Non Focal
Review of Systems
Review of Systems
Could not obtain, patient intubated
Orders
Orders
Orders From Last 24 Hours
01/10/25 03:52
Haptoglobin [S] Urgent
[2025-01-11] VITALS (32 sets, daily range): BP systolic 125–158; BP diastolic 87–122; BMI 17.5
--- NOTE | 2025-01-11 | PTCARENOTE ---
systems reviewed, pt remains agitated with any stimulation, 4 point restraints, garbled speech, dozes off and wakes yelling attempting to get out of restraints, dex gtt per worklist, father called and updated plans to visit tomorrow, otherwise refer
to documentation.
[2025-01-11] MEDS: PRECEDEX 100 IV ×5 (02:46→23:14)
[2025-01-11] MEDS: ZYPREXA 5 MG IM ×2 (03:06→05:38)
--- NOTE | 2025-01-11 04:30 | PTCARENOTE ---
systems reviewed, Dex gtt per worklist, RASS 4, Zyprexa given, CHG bath with linen change, pt attempted to spit on nurses, phlebotomy messaged for labs, skin tear on L forearm from attempting to remove restraints foam applied, otherwise refer to
documentation
--- NOTE | 2025-01-11 05:30 | PTCARENOTE ---
systems reviewed, Dex gtt per worklist, RASS 4, Zyprexa given, CHG bath with linen change, pt attempted to spit on nurses, phlebotomy messaged for labs, skin tear on L foraem from attempting to
[2025-01-11] MEDS: STERILE WATER FOR INJECTION 2.1 ML IM (05:38)
[2025-01-11] MEDS: MAXIPIME 1000 MG IV ×2 (05:38→11:41)
[2025-01-11] MEDS: STERILE WATER FOR INJECTION 10 ML IV ×2 (05:39→11:41)
[2025-01-11 06:35] LABS: Blood Urea Nitrogen 18 mg/dl (9-20); Calcium 8.7 mg/dl (8.4-10.2); Carbon Dioxide 27 mmol/L (22-30); Chloride 111 mmol/L (98-107); Estimated Creatinine Clearance 106 ml/min; Glucose 60 mg/dl (70-99); Potassium 3.8 mmol/L (3.5-5.1); Sodium 143 mmol/L (135-145); Triglycerides 267 mg/dl (10-149); eGFR > 60.00
[2025-01-11 06:38] LABS: Hematocrit 36.2 % (39.0-52.0); Hemoglobin 12.6 g/dL (13.0-18.0); Mean Corp Hgb Conc. 34.8 g/dL (33.0-37.0); Mean Corpuscular Hgb 33.6 pg (27.0-31.0); Mean Corpuscular Volume 96.5 fL (80.0-94.0); Mean Platelet Volume 12.3 fL (7.4-10.4); Platelet Count 81 10^3/uL (130-400); Red Blood Cell Count 3.75 10^6/uL (4.70-6.10); Red Cell Dist. Width 15.3 % (11.5-14.5); White Blood Cell Count 7.1 10^3/uL (4.8-10.8)
[2025-01-11 06:54] LABS: Glucose - Point of Care 63 mg/dl (70-99)
[2025-01-11] MEDS: DEXTROSE 50% SYRINGE 12.5 GRAMS IV (07:00)
[2025-01-11 07:32] LABS: Glucose - Point of Care 135 mg/dl (70-99)
[2025-01-11] MEDS: NICODERM TRANSDERMAL 14 MG TRANSDERM (07:46)
[2025-01-11] MEDS: RISPERDAL PO (07:47)
[2025-01-11] MEDS: NSS (PRESERVATIVE FREE) 10 ML IV (07:47)
[2025-01-11] MEDS: MIRALAX TUBE (07:47)
[2025-01-11] MEDS: PROTONIX IV 40 MG IV (07:47)
[2025-01-11] MEDS: BRIVIACT 100 MG IV ×2 (07:47→19:32)
[2025-01-11 09:20] LABS: Glucose - Point of Care 72 mg/dl (70-99)
[2025-01-11] MEDS: HALDOL 1 MG IV ×3 (09:23→16:46)
[2025-01-11] MEDS: DEPACON 55 MG IV (09:23)
[2025-01-11] MEDS: D5/0.45%NACL 1000 IV (09:30)
--- NOTE | 2025-01-11 09:46 | PTCARENOTE ---
report received assessments per work list. patient screaming out, hallucinating and agitated. grabbing at staff. spitting. spit eid placed, in 4 point restraints. monitor nsr, d/w facs teacher, orders received. haldol given. ekg done prior to
administration. repeat accucheck as noted. facs teacher aware. lungs with coarse breath sounds bilaterally, coughing productively thick white yellow sputum orally suctioned. limited IV access. VAT RN updated. to place midline if able. precedex
remains at max dose. johnson draining clear yellow urine. bed alarm activated. safe environment maintained
[2025-01-11 11:35] LABS: Glucose - Point of Care 99 mg/dl (70-99)
[2025-01-11] MEDS: VIBRAMYCIN 260 MG IV (11:41)
--- NOTE | 2025-01-11 11:53 | W.PN.ONC2 ---
Today's Communication / Plan
-
T/C splenic U/S once pt is clinically stable
follow up haptoglobin
daily cbc
Impression
Impression
Thrombocytopenia, suspect related to valproic acid
Anemia, leukopenia - suspect related to acute illness
Change in mental status
Plan
Plan
Association between valproic acid and thrombocytopenia is well established.
His other cytopenias are mild and can be attributed to probable infectious illness. Leukopenia resolved, Hgb improved to 12.6g/dL. hemolysis less likely with normal retic & LFTs. haptoglobin pending
Platelets should begin to improve 1-3 days after holding valproic acid. Holding drug not an option here but suspect platelets will improve with normalization of valproic acid level. platelet count improved to 81,000. No evidence of acute DIC with
normal fibrinogen
T/C splenic U/S once pt is clinically stable.
Subjective/Objective
Subjective
nursing notes reviewed -hallucinating and agitated -aggressive toward staff now in spit eid and restraints. s/p Haldol
thick productive sputum requiring oral suction
Vital Signs:
Vital Signs
Temp Pulse Resp BP Pulse Ox
97.9 F 59 19 151/105 95
01/11/25 07:23 01/11/25 11:30 01/11/25 11:30 01/11/25 11:30 01/11/25 11:30
Lab Results:
Laboratory Data
WBC 7.1 10^3/uL (4.8-10.8) 01/11/25 06:02
Hgb 12.6 g/dL (13.0-18.0) L 01/11/25 06:02
Plt Count 81 10^3/uL (130-400) L D 01/11/25 06:02
PT 12.5 Sec (11.4-14.6) 01/07/25 21:12
INR 0.89 01/07/25 21:12
APTT 36.2 Sec (23.4-35.0) H 01/07/25 21:12
eGFR > 60.00 01/11/25 06:02
Physical Exam
HEENT: No Jaundice or Moist Mucous Membranes
Cardiology: Normal Sinus Rhythm, S1 and S2
Pulmonary: Clear
GI: Soft; No Distended
Extremities: No C/C/E and Other (no rashes)
Neuro: sedated
--- NOTE | 2025-01-11 12:02 | W.PN.INTV ---
Today's Communication / Plan
Recommendations
Continue antibiotics-will defer to infectious disease
Wean down FiO2
Nebulizer for secretion clearance
Protective measures as the patient is agitated and aggressive
Continue antiseizure medication
Continue antipsychotics
Continue Precedex drip
Top of tube placed
Maintain critical care level
Assessment
-
Assessment: 44-year-old tobacco smoker male with a past medical history of seizure disorder who presented with slurred speech, weakness and shortness of breath for 3 days. Patient is from [place] and was camping with family here in [place]
for the past 3 days. Per documentation, the daughters had removed a tick from the patient on the day prior to arrival, however unclear if the tick was engorged or not. The patient has a known seizure disorder on several AEDs, and has not had
seizures in many years and he does not use illicit drugs although he does smoke marijuana. In the ER he initially was afebrile to 99.9 �F, pulse rate 124, respiratory rate 22, BP 113/86 and saturating 71% on room air. Patient had to be intubated
due to continued altered mental status for airway protection purposes. Initial labs showed leukopenia to 4.1, Hb 11.5, platelet count 57, 33% bands, serum sodium 126, urinalysis with no signs of UTI, and urine drug screen for marijuana +
benzodiazepines. Valproic acid level was drawn and found to be in toxic range at 169.2 ug/ml. Urine and blood cultures collected. Initial CXR showed suspected left upper lobe pneumonia. In the ER he was given a total of 1.5 L NS 0.9%, Zosyn,
DuoNebs and Tylenol. Given that he was intubated, he was admitted to the ICU for further care and Bag Bundler services consulted for additional management/recommendations.
Chronic conditions GRAPE PICKER: Seizure disorder, tobacco use disorder
Impression:
#Acute respiratory failure with hypoxia + hypercapnia requiring mechanical ventilation
Extubated 01/10/2025
#Suspected left-sided CAP (?aspiration given his AMS)
# Toxic metabolic encephalopathy-possibly delirium.
#Pancytopenia with significant bandemia at 33% on admission
#Hypotonic hyponatremia
#Vomiting/diarrhea
#Seizure disorder with supratherapeutic/toxic valproic acid levels
#Depression/anxiety
#Tick found on body (unclear if engorged or not and no reports of signs of targetoid lesion)
#Tobacco use
Plan:
- Patient initially was hypoxic down to 71% and encephalopathic, hence he was intubated for airway protection
- Imaging from 01/08 showed left basilar opacification although initial CXR showed suspected multifocal small patchy opacities (MIS/RUL)
- Continue with broad-spectrum antibiotics with cefepime/Doxy
- Infectious disease consulted
-
Hypoxemic respiratory failure due to above: Extubated 01/10/2025.
-Respiratory status remained tenuous. Remains on high flow oxygen FiO2 55%.
- prn nebulized bronchodilators - not currently bronchospastic
- Patient has not been wheezing and unclear if he has COPD as there are no prior spirometry/PFT studies for me to review; patient had been on Solu-Medrol 40 mg IV q12hr, and this was stopped on 01/09. Given his agitation on 01/09, unclear if the
Solu-Medrol was contributing to this
- Continue with broad-spectrum antibiotics with cefepime + doxycycline s/p IV vanco on 01/08
- Follow-up infectious workup including blood cultures x 2 (collected 01/07), urine culture (collected 01/08), and respiratory culture (from ETT - grew yeast, likely colonization)
- 1 set of blood cultures from 01/07 has grown diphtheroids � suspected contaminant
- Infectious disease consulted
- Follow-up Lyme serology; HIV antigen/antibody combo is negative;, Ehrlichia and Anaplasma PCR is still pending
Toxic metabolic encephalopathy. Remains agitated-spitting at staff. Protective measures have been taken. Remains on restraints.
- Continue AEDs except for valproic acid given its toxic levels, which we will continue to trend; neurology consulted and recs appreciated; family needs to bring in his Fycompa
- Dobbhoff tube placed 01/11/2025 with the help of Haldol-hopefully can start taking his oral medications. Risperdal also has been ordered.
- Continue Precedex
- Will use Haldol IV as needed for procedures.
- Neurology last saw patient 01/09/2025.
- If patient does not awaken as expected, would consider rechecking EEG (conventional perhaps), and consider LP +/- MRI brain, although he does have metallic screws in his left and right glenoid so do not think the MRI would be feasible
-
Valproic levels were at the toxic range. Held and then restarted-levels are improved.
-
Dobbhoff tube has been placed 01/10/2025-hopefully can start oral medications and tube feedings.
-
- Nicotine patch
-
- Maintain euglycemia with goal BG 140-180; A1c: 4.7 on 01/09/2025
-
Cytopenias:
Likely due to critical illness
Thrombocytopenia possibly from valproic acid which was at toxic levels.
Follow daily CBC
Hematology consulted and following
-
- DVT ppx: SCDs given his pancytopenia with significant thrombocytopenia; if platelet count remained stable for >48 hours then will start heparin SQ at that time
Code status: Full code
Continue ICU level of care for this critically ill patient
Critical care statement: A total of 42 minutes of critical care time was provided for this patient today. This includes management of unstable vital signs, evaluation of the patient at bedside, reviewing the patient's pertinent medical records
including radiographs, microbiology, laboratory evaluations, and discussion with primary team, consultants, pharmacy, nutrition, physical therapy, case management, charge nurse, critical care nursing, and respiratory therapy.
Subjective Dataa
Subjective Data
Date of Service:
Date of Service: January 11, 2025
Chief Complaint: Bag Bundler Follow Up (Hypoxemic respiratory failure/pneumonia/toxic metabolic encephalopathy)
Subjective:
Patient unable to provide history-due to agitation/change in mental status.
Remains on supplemental oxygen
Wearing a head mask as the patient was spitting at the staff.
Review of Systems
General: Other (Change mental status)
Objective Data
Data Reviewed
Vital Signs / I&O / Oxygen:
Vital Signs
Temp Pulse Resp BP Pulse Ox
97.9 F 59 19 151/105 95
01/11/25 07:23 01/11/25 11:30 01/11/25 11:30 01/11/25 11:30 01/11/25 11:30
Intake and Output
01/10/25 01/11/25 01/12/25
06:59 06:59 06:59
Intake Total 2402.5 / 2520.5 972.2 / 992.2 220 / 220
Output Total 1275 / 1285 2955 / 2955 700 / 700
Balance 1127.5 / 1235.5 -1982.8 / -1962.8 -480 / -480
SaO2 [A/C] 97
SaO2 95
Nasal Cannula flow liters per 50
minute
Physical Exam
General: Respiratory Distress (negative), Chills (negative) and Sweats (negative)
HEENT: Normocephalic and Anicteric
Cardiovascular: S1-S2 and Peripheral Edema (negative)
Respiratory: Wheeze (negative), Crackles (negative), Rhonchi (negative), Non-Labored Respirations and ET Tube (Mechanical breath sounds heard bilaterally)
GI: Soft, Non Distended, Non Tender and Normal Bowel Sounds
Neurology: Tremors (negative), Other (Slightly sedated-agitated. Moaning. Unable to follow instructions. Moving 4) and Other (Occasionally becomes agitated/violent and tries to jump out of bed)
Skin: Warm, Dry, Cyanosis (negative) and Jaundice (negative)
Labs/Micro/Reports
Lab Data
01/11/25 06:02
01/11/25 06:02
Laboratory Results
01/10/25 01/10/25
20:06 22:00
pH 7.35 Cancelled
pCO2 49 H Cancelled
pO2 56 L* Cancelled
HCO3 27.1 Cancelled
O2 Delivery Level Cancelled
Microbiology
01/07/25 21:12 Blood/Venous Blood Culture - Preliminary
No Growth in 72 hours- Final report to follow
01/07/25 21:12 Blood/Venous Blood Culture - Preliminary
Diptheroids
01/07/25 21:12 Blood/Venous Gram Stain - Preliminary
01/08/25 13:56 Endotracheal Respiratory Culture - Final
Yeast
01/08/25 13:56 Endotracheal Gram Stain - Final
01/08/25 00:01 Urine Urine Culture - Final
NO GROWTH
01/08/25 13:18 Blood/Venous Blood Parasites Smear - Final
01/08/25 10:00 Nose Nasal Screen MRSA (PCR) - Final
MRSA not detected - performed by PCR methodology.
--- NOTE | 2025-01-11 12:03 | PTCARENOTE ---
patient reassessed, sedate after haldol. able to insert dobhoff right nare, johnson removed. condom cath placed. abdominal film resulted. dobhoff advanced 5 cm from 65 to 70. xray retaken. read pending.
--- NOTE | 2025-01-11 12:25 | PTCARENOTE ---
Addendum entered by Mela Hutchinson RN 01/11/25 13:38:
midline placed, feedings initiated. patient mother updated on phone
Original Note:
VAT RN at bedside to place midline. patient became very agitated, screaming and yelling. not following commands. precedex increased. prn dose haldol administered. midline placement deferred until patient sedate
--- NOTE | 2025-01-11 12:38 | W.PN.HOSP.TC ---
Today's Communication/Plan
-
Get outpatient records
Neurology and psychiatry to adjust medicines
I was not able to reach patient's mother to get information regarding outpatient [phone]
Assessment / Plan
Assessment / Plan
44-year-old male presented to ER for cough and congestion. He was weak and tired and had vomiting and diarrhea. Patient is from [place] and camping with family. He also had a tick on his body which was pulled out. Patient was initially placed
on supplemental oxygen and then intubated. History of seizures but has not had one in many years. Patient is a smoker and also uses marijuana.
Patient on high flow
Cardiovascular system S1-S2 appreciated
Chest clear to auscultation anteriorly
Decreased bases
Abdomen soft and nontender
No pedal edema
# Acute hypoxic respiratory failure
VDRF
Possible pneumonia-chest x-ray initially shows concern for left upper lobe infiltrate which resolved with intubation. Current chest x-rays is concerning for bilateral interstitial and airspace disease throughout both lungs.
? COPD exacerbation
Initial gas pH 7.35/pCO2 47/PO2 236/bicarb 25.9
Blood culture sent from the ER-shows diphtheroids likely contaminant
Urine Legionella and strep pneumonia antigen-negative
Sedation with propofol, fentanyl
Continue doxycycline, cefepime
Solu-Medrol for COPD exacerbation per pulmonary-now discontinued
Infectious disease and pulmonary consultations
Patient now extubated on high flow oxygen
# Hypotension-I doubt this is septic shock this is likely secondary to medicines such as large dose of propofol. Patient has been off of Levophed and only required it for short duration. Remains stable hemodynamically
# TME/altered mental status-secondary to hypoxia. And also psychiatric illness elevated valproate level-repeat improved. History of seizures.
Neurology input noted-suspected encephalopathy
Head CT-no acute changes
Urine drug screen-Marijuana,
Valproate level high at 169. Improved levels
Currently on Precedex
Wellbutrin on hold
Also on Resperate on 0.5 mg daily and 0.5 mg twice daily as needed
Patient also restarted on Depakote
# Vomiting and diarrhea-none since admission
# Tick was retrieved from the body
Lyme serology ordered but it might be too early
Infectious disease following
# Hyponatremia likely hypovolemic-Normalized
# History of seizures-patient is on clobazam, zonisamide, Perampanel, Depakote as outpatient
EEG- No SZ
Neuro following
Valproate level-169 on admission. Levels then improved patient restarted on valproate 500 mg IV every 12
Perampanel is non formulary-and patient brought in empty bottles
Zonegran is on hold
Patient is on clobazam
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
# Pancytopenia-appreciate hematology input. Clinical concern is either infection or medication related especially low platelets with valproic acid And anemia secondary to acute illness continue to follow CBC
# Anxiety and depression-
Continue risperidone-was on 2 mg at bedtime as outpatient currently on 0.5 mg daily and 0.5 mg twice daily as needed
Wellbutrin on hold
Effexor on hold
# Smoker- cessation counselling when stable. Nicotine patch
# GI prophylaxis-PPI
# DVT prophylaxis-Lovenox
# Full code
Discussed with RN
D/W Neuro, Psyche,Quarryman , Pharmacist,
Spoke to father, he doesn't know pt's OP neurologist , wanted me to call mom [phone] , went to message and mailbox is full
Pt not , has 4 children.
Total time spent on today's encounter was 53 minutes which included time spent in counseling the patient/family regarding diagnosis and treatment plan as listed above, goals of care, and symptom management. Case was discussed with nursing staff,
specialists, and care coordinators/case management. All labs and imaging personally reviewed by me. Remainder the time spent in detailed review of previous records, lab data, imaging, and other medical provider documentation.
Part of this note was created using voice recognition system. Occasional wrong word or��sound alike� substitutions may have inadvertently occurred due to the inherent limitations of voice recognition software. If noted kindly bring it to my
attention for correction.
Anticipated Discharge: > 48 hours
Subjective/Interval History
-
Date of Service: January 11, 2025
Objective Data
-
Labs:
Laboratory Results
01/11/25
06:02
WBC 7.1
Hgb 12.6 L
Hct 36.2 L
Plt Count 81 L D
Sodium 143
Potassium 3.8
Chloride 111 H
Carbon Dioxide 27
BUN 18
Creatinine 0.7
Glucose 60 L
Calcium 8.7
Vital Signs:
Vital Signs
Temp Pulse Resp BP Pulse Ox
97.4 F 69 19 146/101 95
01/11/25 11:30 01/11/25 12:00 01/11/25 12:00 01/11/25 12:00 01/11/25 11:30
I&O
01/10/25 01/11/25 01/12/25
06:59 06:59 06:59
Intake Total 2402.5 / 2520.5 972.2 / 992.2 618.6 / 618.6
Output Total 1275 / 1285 2955 / 2955 700 / 700
Balance 1127.5 / 1235.5 -1982.8 / -1962.8 -81.4 / -81.4
[2025-01-11] MEDS: RISPERDAL 0.5 MG PO ×2 (13:14→16:02)
[2025-01-11 13:45] LABS: Lyme Antibody Screen, EIA Negative (Negative)
--- NOTE | 2025-01-11 14:16 | CM ---
Extubated, wean FiO2, IV/Meds, Agitated/aggressive. Discharge POC: TBD. Therapy not able to complete eval due to prior intubation and current behaviors.
[2025-01-11] MEDS: MIRALAX 17 GRAMS TUBE (15:07)
--- NOTE | 2025-01-11 15:44 | W.PN.UPDATE ---
Addendum entered and electronically signed by Jonny Mcarthur MD 01/11/25 16:26:
Advised by pharmacy dobhoff tube still in place; will change Risperidone and Effexor orders to via tube.
Original Note:
Update Note
Progress Note Update
Pt seen, chart reviewed. Pt noted to be agitated earlier, yelling/screaming/spitting. He was given Haldol, Precedex was increased. Pt asleep/sedated when seen on rounds. Pt on reduced dose of Bupropion, divided doses of immediate release
Venlafaxine- both on hold for now. Risperidone was been continued, slightly increased, 2 mg home dose now on hold. Depakote is reportedly for seizures, being managed by Neurology. QTc 397 today.
Imp: Delirium with agitation, likely due to acute hypoxic respiratory failure. Hx of unspecified anxiety/depression, diagnosis unclear
Rec: will hold off Wellbutrin for now due to agitation; will resume home dose of Risperidone 2 mg HS and restart Effexor XR at lower dose- 75 mg daily, when able to take po
will follow
--- NOTE | 2025-01-11 16:05 | W.PN.ID1 ---
Date of Service
Date of Service: January 11, 2025
Today's Communication
- Continue doxycycline.
- DC cefepime - in case contributing to persistent mental status change.
- Replace cefepime with ceftriaxone.
Assessment / Plan
# Pneumonia (Cough, congestion)
# Change in mental status - persists
# Recent camping with tick exposure
# Fever - resolved
# Pancytopenia - improving
# s/p Hypoxemic respiratory failure, extubated
# Hyponatremia
# History of seizure disorder
# Cachexia
# Tobacco/marijuana use
-COVID/Flu neg
-Urine legionella, S. pneumo neg (not sensitive tests
-UA neg
-CXR minimal LLL opacity
- Blood cx negative to date
- sputum yeast (not significant)
- Lyme screen negative ( can be false negative in early disease)
- Blood parasite smear negative
- Anaplasma and Ehrlichia PCR pending
- HIV negative
- Continue doxycycline.
- DC cefepime - in case contributing to persistent mental status change.
- Replace cefepime with ceftriaxone 2g IV q24.
- Follow temps/CBC
�������������������
Chief Complaint
-: Pneumonia
Subjective / Review of Systems
Per nurse, pt spitting on people, agitated.
Vital Signs / Physical Exam
Vital Signs
Vital Signs
Temp Pulse Resp BP Pulse Ox
97.5 F 66 19 157/102 94
01/11/25 15:27 01/11/25 15:00 01/11/25 15:00 01/11/25 15:00 01/11/25 15:46
Physical Exam
Constitutional: Acutely Ill and Cachetic
Cardiovascular: Regular Rate and S1/S2
Pulmonary: Clear (anteriorly)
Gastrointestinal: Soft, Non Tender and Non Distended
Extremities: Negative Edema
Neurological: Other (Decreased mental status)
Psychological: Agitated
Objective Data
Lab Data
Lab Results
01/11/25 06:02
01/11/25 06:02
PT 12.5 Sec (11.4-14.6) 01/07/25 21:12
INR 0.89 01/07/25 21:12
APTT 36.2 Sec (23.4-35.0) H 01/07/25 21:12
Estimated Creat Clear 106 ml/min 01/11/25 06:02
Lactic Acid 0.8 mmol/L (0.7-2.0) 01/08/25 15:19
Total Bilirubin Cancelled 01/10/25 07:54
AST Cancelled 01/10/25 07:54
ALT Cancelled 01/10/25 07:54
Alkaline Phosphatase Cancelled 01/10/25 07:54
Most recent labs reviewed.
Micro Results:
01/07/25 21:12 Blood Culture - Preliminary
Blood/Venous No Growth in 72 hours- Final report to follow
01/07/25 21:12 Blood Culture - Preliminary
Blood/Venous Diptheroids
Gram Stain - Preliminary
01/08/25 13:56 Respiratory Culture - Final
Endotracheal Yeast
Gram Stain - Final
01/08/25 00:01 Urine Culture - Final
Urine NO GROWTH
01/08/25 13:18 Blood Parasites Smear - Final
Blood/Venous
01/08/25 10:00 Nasal Screen MRSA (PCR) - Final
Nose MRSA not detected - performed by PCR methodology.
01/08/25 00:23 Legionella Urinary Antigen - Final
Urine Negative for Legionella pneumophila Serogroup 1 antigen.
A negative result does not rule out the possiblity of
Legionella infection due to other serogroups or species of
Legionella. Clinical correlation is recommended.
Streptococcus pneumoniae Antigen (M - Final
Negative for Streptococcus pneumoniae antigen.
A negative result does not exclude infection with
Streptococcus pneumoniae. Clinical correlation is
recommended.
01/07/25 21:12 Influenza Types A & B (COURTNEY) - Final
Nasal Swab Negative for Influenza A & B, NAAT
Negative results must be combined with clinical observations
and patient history.
Nucleic Acid Amplification test (NAAT)performed on the
[employer] platform.
01/08/25 CXR: Minor opacity in the left lung base
01/08/25 AXR: Moderate fecal matter throughout the colon. No evidence of intestinal obstruction.
01/07/25 CXR: Probable left upper lobe pneumonia. Recommend follow-up imaging after treatment to rule out underlying mass.
01/07/25 CXR: Improved aeration in the left upper lobe. No convincing focal infiltrates. Findings suggesting mild diffuse pneumonitis and/or pulmonary interstitial edema.
01/07/25 CT head: No acute intracranial abnormality noted.
Care Review
Plan reviewed with: Physician (Dr. Healy)
--- NOTE | 2025-01-11 16:14 | PTCARENOTE ---
patient reassessed. attempted Precedex wean, patient became agitated when changing from midflow oxygen from high flow. aggressive to staff. yelling, 'get me out of here, I wanna go to [place]'. unable to redirect patient. precedex increased back to
1.5. prn dose Risperdal given. voided large amount yellow clear urine by condom cath. post void residual 166. mother updated on phone. phone consent from mother to obtain records per MD order
[2025-01-11] MEDS: ROCEPHIN 2000 MG IV (16:46)
[2025-01-11] MEDS: STERILE WATER FOR INJECTION 20 ML IV (16:47)
[2025-01-11 17:27] LABS: Glucose - Point of Care 107 mg/dl (70-99)
--- NOTE | 2025-01-11 18:13 | W.PN.NEURO.1 ---
Today's Communication / Plan
-
.
Subjective/Objective
Subjective Data
Date of Service: January 11, 2025
Neurology follow-up note
HPI: This is a 44-year-old man with history of medically refractory epilepsy who presented to [facility] on 01/07/2025 with fever, encephalopathy, pancytopenia and acute hypoxic respiratory failure.
According to EMR Mr. Hernandez was originally resides in [place] was camping with family in [place] for the past 3 days prior to presentation and had removed a tick from the patient on the day prior to arrival.
ER VS: 113/86, 124, 22, temperature�38.9 C, pulse ox�71% on room air.
Review of vital signs was notable for hypotension down to 74/68 on 01/07/2025 at 23:00.
Mr. Lorenz was treated with doxycycline and cefepime
Based on neurology office visit from 12/12/2021 patient's AED included Onfi 20 mg twice daily, Depakote 750 mg twice daily, Fycompa 10 mg nightly and Zonegran 100 mg nightly.
Labs: VPA (01/07/2025) 169 (50-120), UA�positive for benzodiazepines, marijuana, HIV�negative, Lyme�negative
EKG: sinus bradycardia, QTc Int : [address] 37-[address] head wo contrast (01/07/2025)�no acute abnormality, mild generalized atrophy.
Check XR: mild interstitial disease and ground-glass opacity remaining in the lower lungs which is similar to 01/09/2025
MAR: Precedex, clobazam, zonisamide was not given on 01/10/2025.
PMH: Medically refractory epilepsy, history of TBI, COPD, cannabis use disorder, BMI 17.
PSH: right shoulder replacement, left shoulder repair
SH: active smoker
FH: unknown
All: NKDA
ROS: Unable due to encephalopathy.
General: Restrained, on mid flow nasal cannula
Cardio: Regular rhythm. Extremities are without cyanosis or edema.
Neuro:
Mental Status: Stuporous, mumbles, does not attend follow requests.
Cranial Nerves: Orthophoric primary gaze. Resists passive eye opening. Pupils are equally round and reactive to light. No clear facial weakness.
Motor: Moves all limbs within bed plane.
Reflexes: Limited exam due to restraints
Sensory: Unable due to poor attention
Coordination: No tremors myoclonic movement
Gait: deferred
Assessment and Plan:
I. Encephalopathy (infectious, hypoxic,, toxic)
II. Medically refractory epilepsy
III. Pancytopenia
IV. Depakote toxicity
- Seizure and aspiration precautions
- With hypoxia and cerebral hypoperfusion
- Routine EEG
- Continue thiamine, nicotine patch
- Please check CK
- Brain MRI with and without gerson
- Continue Brivacetam 100 mg QD, Clobazam 20 mg BID, Fycompa 10 mg nightly and Zonegran 100 mg nightly.
- Hold VPA for now
- CSF to rule out HSV encephalitis, ID follow up
- Avoid medications known to lower seizure threshold(Cefepime, Risperidone, Bupropion)
- DVT prophylaxis.
I personally reviewed all radiology and labs along with past medical records pertinent to current medical problems. Total time spent in patient care is 60 minutes.
Thank you for allowing us to participate in the care of this patient. We will continue to follow. Please do not hesitate to contact us with any questions or concerns.
Objective Data
Vital Signs
Temp Pulse Resp BP Pulse Ox
36.4 C 61 16 151/98 96
01/11/25 15:27 01/11/25 17:00 01/11/25 17:00 01/11/25 17:00 01/11/25 18:00
Lab Results
01/11/25 06:02
01/11/25 06:02
PT 12.5 Sec (11.4-14.6) 01/07/25 21:12
INR 0.89 01/07/25 21:12
APTT 36.2 Sec (23.4-35.0) H 01/07/25 21:12
Sodium 143 mmol/L (135-145) 01/11/25 06:02
Potassium 3.8 mmol/L (3.5-5.1) 01/11/25 06:02
BUN 18 mg/dl (9-20) 01/11/25 06:02
Glucose 60 mg/dl (70-99) L 01/11/25 06:02
Calcium 8.7 mg/dl (8.4-10.2) 01/11/25 06:02
Phosphorus 2.3 mg/dl (2.5-4.5) L 01/10/25 03:52
Lrm-L-Cwfehsglbwx Pept 213 pg/ml 01/09/25 04:29
Ur Buprenorphine Negative (Negative) 01/08/25 00:01
Patient Allergies
No Known Allergies Allergy (Unverified 01/07/25 20:58)
Vital Signs and Labs
-
Vital Signs and Labs:
Vital Signs
Temp Pulse Resp BP Pulse Ox
36.4 C 61 16 151/98 96
01/11/25 15:27 01/11/25 17:00 01/11/25 17:00 01/11/25 17:00 01/11/25 18:00
Lab Results
01/11/25 06:02
01/11/25 06:02
PT 12.5 Sec (11.4-14.6) 01/07/25 21:12
INR 0.89 01/07/25 21:12
APTT 36.2 Sec (23.4-35.0) H 01/07/25 21:12
Sodium 143 mmol/L (135-145) 01/11/25 06:02
Potassium 3.8 mmol/L (3.5-5.1) 01/11/25 06:02
BUN 18 mg/dl (9-20) 01/11/25 06:02
Glucose 60 mg/dl (70-99) L 01/11/25 06:02
Calcium 8.7 mg/dl (8.4-10.2) 01/11/25 06:02
Phosphorus 2.3 mg/dl (2.5-4.5) L 01/10/25 03:52
Rye-Q-Azzbsqqobys Pept 213 pg/ml 01/09/25 04:29
Ur Buprenorphine Negative (Negative) 01/08/25 00:01
Medications
-
Medications:
Generic Name Dose Route Start Last Admin
Trade Name Freq PRN Reason Stop Dose Admin
Brivaracetam 100 mg 01/10/25 20:00 01/11/25 07:47
Brivaracetam (10 Mg/Ml) 5 Ml Vial IV 01/14/25 19:59 100 mg
BID MICHELLE Administration
Ceftriaxone Sodium 2,000 mg 01/11/25 18:00 01/11/25 16:46
Ceftriaxone 2,000 Mg/20 Ml Vial IV 2,000 mg
Q24H MICHELLE Administration
Dextrose 12.5 grams 01/11/25 06:53
Dextrose 50% (0.5 Grams/Ml) 50 Ml Syringe IV 02/08/25 06:52
[id number] PRN
bs <70
Haloperidol Lactate 1 mg 01/11/25 08:53 01/11/25 16:46
Haloperidol 5 Mg/Ml 1 Ml Vial IV 02/08/25 08:52 1 mg
Q4HPRN PRN Administration
agitation
Doxycycline Hyclate 100 mg/ 260 mls @ 260 mls/hr 01/08/25 00:00 01/11/25 11:41
Sodium Chloride IV 260 mls
Q12@0000,1200 MICHELLE Administration
Dexmedetomidine HCl 400 mcg in 100 mls @ 0 mls/hr 01/09/25 13:45 01/11/25 16:41
Precedex IV 100 mls
PER PROTOCOL MICHELLE Administration
Protocol
Per Protocol
Dextrose/Sodium Chloride 1,000 mls @ 80 mls/hr 01/11/25 10:00 01/11/25 09:30
D5/0.45%Nacl IV 01/11/25 22:29 1,000 mls
.[id number] MICHELLE Administration
Nicotine 14 mg 01/08/25 19:10 01/11/25 07:46
Nicotine 14 Mg Patch TRANSDERM 02/05/25 19:09 14 mg
DAILY MICHELLE Administration
Non-Formulary Item 1 0 mg 01/08/25 22:00 01/10/25 21:33
Unit (Clobazam 20 TUBE 02/05/25 21:59 Not Given
Mg Tablet 1 Tablet HS MICHELLE
Po Nightly)
Non-Formulary Medication 10 mg 01/08/25 22:00
Perampanel [Fycompa] PO 02/05/25 21:59
HS MICHELLE
Pantoprazole Sodium 40 mg 01/08/25 08:00 01/11/25 07:47
Pantoprazole Sodium 40 Mg/10 Ml Vial IV 02/05/25 07:59 40 mg
DAILY MICHELLE Administration
Patch Removal 0 patch 01/08/25 22:00 01/10/25 21:34
Remove Nicotine Patch REMOVE 02/05/25 21:59 1 patch
HS MICHELLE Administration
Polyethylene Glycol 17 grams 01/08/25 08:00 01/11/25 15:07
Polyethylene Glycol Powder 17 Grams Packet TUBE 02/05/25 07:59 17 grams
DAILY MICHELLE Administration
Risperidone 2 mg 01/11/25 22:00
Risperidone 2 Mg Tablet TUBE 02/08/25 21:59
HS MICHELLE
Risperidone 0.5 mg 01/12/25 08:00
Risperidone 0.5 Mg Tablet TUBE 02/09/25 07:59
DAILY MICHELLE
Risperidone 0.5 mg 01/11/25 16:26
Risperidone 0.5 Mg Tablet TUBE 02/08/25 16:25
BIDPRN PRN
agitation
Sodium Chloride 0 flush 01/07/25 23:00
Sodium Chloride 0.9% (Flush) Syringe IV 02/04/25 22:59
PER PROTOCOL MICHELLE
Sodium Chloride 10 ml 01/08/25 08:00 01/11/25 07:47
Sodium Chloride 0.9% (Preservative Free) 10 Ml Vial IV 02/05/25 07:59 10 ml
DAILY MICHELLE Administration
Sterile Water 20 ml 01/11/25 18:00 01/11/25 16:47
Sterile Water For Injection 20 Ml Vial IV 02/08/25 17:59 20 ml
Q24H MICHELLE Administration
Venlafaxine HCl 50 mg 01/12/25 08:00
Venlafaxine 50 Mg Regular Release Tablet TUBE 02/09/25 07:59
BID@0800,1600 MICHELLE
Zonisamide 100 mg 01/08/25 22:00 01/10/25 21:36
Zonisamide Susp 10 Mg/Ml In Oral Syringe TUBE 02/05/25 21:59 Not Given
HS MICHELLE
Home Medications
-
Home Medications
bupropion HCl 200 mg tablet,12 hr sustained-release 200 mg PO DAILY Mental Health/Anxiety 01/07/25
clobazam 20 mg tablet 20 mg PO HS Seizures 01/07/25
divalproex 500 mg tablet,delayed release 500 mg PO BID Seizures 01/07/25
omeprazole 40 mg capsule,delayed release 40 mg PO DAILY Gastrointestinal Issue 01/07/25
perampanel 10 mg tablet (Fycompa) 10 mg PO HS Seizures 01/07/25
risperidone 2 mg tablet 2 mg PO HS Mental Health/Anxiety 01/07/25
venlafaxine 150 mg capsule,extended release 24 hr 150 mg PO DAILY Mental Health/Anxiety 01/07/25
zonisamide 100 mg capsule 100 mg PO HS Seizures 01/07/25
[2025-01-11 20:05] LABS: Creatine Phosphokinase 73 U/L (55-170)
[2025-01-11 21:03] LABS: Vitamin B12 976 pg/ml (239-931)
[2025-01-11] MEDS: NON-FORMULARY ITEM 20 MG TUBE (21:07)
[2025-01-11] MEDS: RISPERDAL 2 MG TUBE (21:08)
[2025-01-11] MEDS: ZONEGRAN 100 MG TUBE (21:09)
--- NOTE | 2025-01-11 22:48 | PTCARENOTE ---
Pt received at 19:00. Pt oriented to self, yelling out, garbled speech. Hallucinating and stated multiple times: 'the people came into the room and took the baby.' SR, HR 60s-70s. Palpable pulses, weak DPs. 6L midflow NC, coarse/rhonchi t/o. Pt
requesting a drink, mouth care offered and accepted as an alternative, pt remains NPO. DHT in place, R nare @ 70cm. TF infusing as ordered, goal rate 60ml/hr, currently infusing at 40ml/hr, ordered by 20ml/hr q8hr. +BS, no BM. Condom cath in place,
yellow urine. Pt repositioned q2h.
[2025-01-11 23:37] LABS: Glucose - Point of Care 113 mg/dl (70-99)
[2025-01-12] VITALS (26 sets, daily range): BP systolic 107–185; BP diastolic 73–109; BMI 16.4
[2025-01-12] MEDS: VIBRAMYCIN 260 MG IV ×3 (00:06→23:51)
[2025-01-12 03:11] LABS: Haptoglobin 260 mg/dL (30-200)
[2025-01-12] MEDS: HALDOL 1 MG IV ×5 (03:20→23:51)
[2025-01-12] MEDS: PRECEDEX 100 IV ×5 (03:54→23:07)
[2025-01-12 04:01] LABS: Hematocrit 32.2 % (39.0-52.0); Hemoglobin 11.4 g/dL (13.0-18.0); Mean Corp Hgb Conc. 35.4 g/dL (33.0-37.0); Mean Corpuscular Hgb 32.6 pg (27.0-31.0); Mean Platelet Volume 11.1 fL (7.4-10.4); Platelet Count 100 10^3/uL (130-400); Red Cell Dist. Width 14.6 % (11.5-14.5); White Blood Cell Count 4.5 10^3/uL (4.8-10.8)
[2025-01-12 04:19] LABS: Blood Urea Nitrogen 14 mg/dl (9-20); Calcium 8.3 mg/dl (8.4-10.2); Carbon Dioxide 32 mmol/L (22-30); Chloride 103 mmol/L (98-107); Estimated Creatinine Clearance 124 ml/min; Glucose 112 mg/dl (70-99); Magnesium 1.5 mg/dl (1.6-2.3); Potassium 3.6 mmol/L (3.5-5.1); Sodium 136 mmol/L (135-145); eGFR > 60.00
--- NOTE | 2025-01-12 05:21 | PTCARENOTE ---
Precedex gtt titrated down, within one hour pt began yelling out and hollering at staff, precedex increased per protocol. Pt agitated, yelling out and hallucinating shortly after 03:00, IVP haldol given and effective. At this time with AM care, pt
began yelling out and is now cursing and yelling at staff. Pt screaming '' because he was not given a glass of water. 'If you don't get me a glass of water, I'm gonna beat your ass.'
Pt at this time appears to be aware that he is at [facility], however hallucinating and yelling the men across the room about their motorcycles.
[2025-01-12] MEDS: MAGNESIUM SULFATE 50 IV (05:45)
[2025-01-12] MEDS: KCL 260 MEQ IV (05:45)
--- NOTE | 2025-01-12 06:07 | PTCARENOTE ---
At 06:00 pulled off O2 tubing and pulled DHT out. Pt asked what was in his hand, his response was 'NOTHING! They moved the floor out there (pointing to the window) and I had to get up and help them'.
With 6L midflow pulse ox 94% and above, mid 80s on RA.
--- NOTE | 2025-01-12 06:19 | PTCARENOTE ---
At 06:00 pulled off O2 tubing and pulled DHT out. Pt holding DHT in hand, when asked what was in his hand, his response was 'NOTHING! They moved the floor out there (pointing to the window) and I had to get up and help them'.
With 6L midflow pulse ox 94% and above, mid 80s on RA.
[2025-01-12] MEDS: THIAMINE INJECTION 100 MG IV (07:39)
[2025-01-12] MEDS: NSS (PRESERVATIVE FREE) 10 ML IV (07:39)
[2025-01-12] MEDS: PROTONIX IV 40 MG IV (07:39)
[2025-01-12] MEDS: NICODERM TRANSDERMAL 14 MG TRANSDERM (07:40)
[2025-01-12] MEDS: BRIVIACT 100 MG IV ×2 (07:40→19:07)
[2025-01-12] MEDS: EFFEXOR 50 MG TUBE (08:07)
[2025-01-12] MEDS: RISPERDAL 0.5 MG TUBE (08:07)
[2025-01-12] MEDS: MIRALAX TUBE ×2 (08:07→10:39)
--- NOTE | 2025-01-12 09:11 | PTCARENOTE ---
patient received agitated and aggressive. pulled out left hand PIV. prn dose haldol given. patient able to take po meds with sip of h20. awaiting speech evaluation prior to reinsertion of feeding tube. required addition of mitts in addition to 4
point restraints and spit eid. having frequent visual hallucinations. unable to redirect. EEg at bedside. lungs with coarse breath sounds bilaterally. coughing up large thick white sputum. midflow@ 6 liters. abdomen soft. condom cath in place
draining clear yellow urine. safe environment maintained
--- NOTE | 2025-01-12 09:46 | W.PN.ID1 ---
Date of Service
Date of Service: January 12, 2025
Today's Communication
Continue doxycycline and ceftriaxone.
Assessment / Plan
# Pneumonia (Cough, congestion)
# Change in mental status - persists
# Recent camping with tick exposure
# Fever - resolved
# Pancytopenia - improving
# s/p Hypoxemic respiratory failure, extubated
# Hyponatremia
# History of seizure disorder
# Cachexia
# Tobacco/marijuana use
-COVID/Flu neg
-Urine legionella, S. pneumo neg (not sensitive tests)
-UA neg
-CXR minimal LLL opacity
- Blood cx Diphtheroid = contaminant
- sputum yeast (not significant)
- Lyme screen negative ( can be false negative in early disease)
- Blood parasite smear negative
- Anaplasma and Ehrlichia PCR negative
- HIV negative
- EEG pending
-s/p cefepime (01/07 -01/11)
- Continue empiric doxycycline (d5) and ceftriaxone (d2)
�������������������
Chief Complaint
-: Pneumonia
Subjective / Review of Systems
Mumbling
Vital Signs / Physical Exam
Vital Signs
Vital Signs
Temp Pulse Resp BP Pulse Ox
97.0 F 68 20 146/96 94
01/12/25 08:00 01/12/25 09:00 01/12/25 09:00 01/12/25 09:00 01/12/25 09:00
Physical Exam
Constitutional: Acutely Ill and Cachetic
Eyes: Sclera Anicteric
Cardiovascular: Regular Rate and S1/S2
Pulmonary: Clear (anteriorly)
Gastrointestinal: Soft, Non Tender, Non Distended and Normal Bowel Sounds
Extremities: Negative Edema
Neurological: Other (Lethargic)
Psychological: Agitated (on restraints)
Objective Data
Lab Data
Lab Results
01/12/25 03:28
01/12/25 03:28
PT 12.5 Sec (11.4-14.6) 01/07/25 21:12
INR 0.89 01/07/25 21:12
APTT 36.2 Sec (23.4-35.0) H 01/07/25 21:12
Estimated Creat Clear 124 ml/min 01/12/25 03:28
Lactic Acid 0.8 mmol/L (0.7-2.0) 01/08/25 15:19
Total Bilirubin Cancelled 01/10/25 07:54
AST Cancelled 01/10/25 07:54
ALT Cancelled 01/10/25 07:54
Alkaline Phosphatase Cancelled 01/10/25 07:54
Most recent labs reviewed.
Micro Results:
01/07/25 21:12 Blood Culture - Preliminary
Blood/Venous No Growth in 4 days- Final report to follow
01/07/25 21:12 Blood Culture - Preliminary
Blood/Venous Diptheroids
Gram Stain - Preliminary
01/08/25 13:56 Respiratory Culture - Final
Endotracheal Yeast
Gram Stain - Final
01/08/25 00:01 Urine Culture - Final
Urine NO GROWTH
01/08/25 13:18 Blood Parasites Smear - Final
Blood/Venous
01/08/25 10:00 Nasal Screen MRSA (PCR) - Final
Nose MRSA not detected - performed by PCR methodology.
01/08/25 00:23 Legionella Urinary Antigen - Final
Urine Negative for Legionella pneumophila Serogroup 1 antigen.
A negative result does not rule out the possiblity of
Legionella infection due to other serogroups or species of
Legionella. Clinical correlation is recommended.
Streptococcus pneumoniae Antigen (M - Final
Negative for Streptococcus pneumoniae antigen.
A negative result does not exclude infection with
Streptococcus pneumoniae. Clinical correlation is
recommended.
01/07/25 21:12 Influenza Types A & B (COURTNEY) - Final
Nasal Swab Negative for Influenza A & B, NAAT
Negative results must be combined with clinical observations
and patient history.
Nucleic Acid Amplification test (NAAT)performed on the
[employer] platform.
01/08/25 CXR: Minor opacity in the left lung base
01/08/25 AXR: Moderate fecal matter throughout the colon. No evidence of intestinal obstruction.
01/07/25 CXR: Probable left upper lobe pneumonia. Recommend follow-up imaging after treatment to rule out underlying mass.
01/07/25 CXR: Improved aeration in the left upper lobe. No convincing focal infiltrates. Findings suggesting mild diffuse pneumonitis and/or pulmonary interstitial edema.
01/07/25 CT head: No acute intracranial abnormality noted.
[2025-01-12 09:57] LABS: Ammonia < 9 umol/L (9-30)
--- NOTE | 2025-01-12 10:37 | W.PN.INTV ---
Today's Communication / Plan
Recommendations
Continue current medications for now
Holding valproic acid
Continue to follow CBC
Start Lovenox
Continue antibiotics
Wean down FiO2 currently 5 L-improved.
Patient not allowing for nebulizers
Eventual MRI-per neurology
May need LP to rule out viral encephalitis
Will follow
Assessment
-
Assessment: 44-year-old tobacco smoker male with a past medical history of seizure disorder who presented with slurred speech, weakness and shortness of breath for 3 days. Patient is from [place] and was camping with family here in [place]
for the past 3 days. Per documentation, the daughters had removed a tick from the patient on the day prior to arrival, however unclear if the tick was engorged or not. The patient has a known seizure disorder on several AEDs, and has not had
seizures in many years and he does not use illicit drugs although he does smoke marijuana. In the ER he initially was afebrile to 99.9 �F, pulse rate 124, respiratory rate 22, BP 113/86 and saturating 71% on room air. Patient had to be intubated
due to continued altered mental status for airway protection purposes. Initial labs showed leukopenia to 4.1, Hb 11.5, platelet count 57, 33% bands, serum sodium 126, urinalysis with no signs of UTI, and urine drug screen for marijuana +
benzodiazepines. Valproic acid level was drawn and found to be in toxic range at 169.2 ug/ml. Urine and blood cultures collected. Initial CXR showed suspected left upper lobe pneumonia. In the ER he was given a total of 1.5 L NS 0.9%, Zosyn,
DuoNebs and Tylenol. Given that he was intubated, he was admitted to the ICU for further care and [facility] services consulted for additional management/recommendations.
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
Impression:
#Acute respiratory failure with hypoxia + hypercapnia requiring mechanical ventilation
Extubated 01/10/2025
#Suspected left-sided CAP (?aspiration given his AMS)
# Toxic metabolic encephalopathy-possibly delirium.
#Pancytopenia with significant bandemia at 33% on admission
#Hypotonic hyponatremia
#Vomiting/diarrhea
#Seizure disorder with supratherapeutic/toxic valproic acid levels
#Depression/anxiety
#Tick found on body (unclear if engorged or not and no reports of signs of targetoid lesion)
#Tobacco use
Plan:
- Patient initially was hypoxic down to 71% and encephalopathic, hence he was intubated for airway protection-likely aspirated postseizure.
- Imaging from 01/08 showed left basilar opacification although initial CXR showed suspected multifocal small patchy opacities (MIS/RUL)
- Extubated 01/10/2025.
- Continue with broad-spectrum antibiotics with cefepime/Doxy
- Infectious disease consulted
-
Hypoxemic respiratory failure due to above: Extubated 01/10/2025.
Suspected pneumonia.
- Improving hypoxemia-now 5 L nasal cannula.
- prn nebulized bronchodilators - not currently bronchospastic
- Initially on steroids but were discontinued 01/09/2025.
Nicotine patch in place. Patient is an active smoker.
- Continue with antibiotics ceftriaxone/doxycycline for pneumonia. Infectious disease following. Case discussed.
- Follow-up infectious workup including blood cultures x 2 (collected 01/07), urine culture (collected 01/08), and respiratory culture (from ETT - grew yeast, likely colonization)
- 1 set of blood cultures from 01/07 has grown diphtheroids � suspected contaminant
- Negative Lyme serology; HIV antigen/antibody combo is negative;, Ehrlichia and Anaplasma PCR negative.
Toxic metabolic encephalopathy. Remains agitated-spitting at staff. Protective measures have been taken. Remains on restraints.
- Continue AEDs except for valproic acid given its toxic levels, which we will continue to trend; neurology consulted and recs appreciated; family needs to bring in his Fycompa
- Dobbhoff tube placed 01/11/2025 -patient pulled it off overnight.
- Remain mostly n.p.o.-was able to take pills this morning.
- Continue Precedex-hopefully can wean off-Monitor hemodynamics.
- Will use Haldol IV as needed for procedures.
- Neurology last saw patient 01/09/2025.
- EEG today 01/12/2025 will follow results
Valproic levels were at the toxic range. Held and then restarted-levels are improved.
Neurology correspondence reviewed: IV thiamine given.
Brain MRI when able-patient unable to cooperate.
Cont. Brivacetam, Clobazam, Fycopa and zonegran.
Valproic acid still on hold.
Considering LP to rule out HSV encephalitis.
Wellbutrin on hold as it decrease seizure threshold.
Will need to also limit Haldol.
-
Dobbhoff tube has been placed 01/10/2025-pulled it off overnight. Will attempt to replace today 01/12/2025.
Unfortunately, enteral access is an issue to allow to taking his medications.
-
Psychiatry also following:
Outpatient medications to be restarted
Venlafaxine
Now also on Risperdal at bedtime
-
- Maintain euglycemia with goal BG 140-180; A1c: 4.7 on 01/09/2025
-
Cytopenias: Improving.
Likely due to critical illness
Thrombocytopenia possibly from valproic acid which was at toxic levels.
Follow daily CBC
Hematology consulted and following
-
- DVT ppx: Discontinue SCDs-may increase delirium. Start Lovenox as platelets are improving.
Code status: Full code
Continue ICU level of care for this critically ill patient
Critical care statement: A total of 37 minutes of critical care time was provided for this patient today. This includes management of unstable vital signs, evaluation of the patient at bedside, reviewing the patient's pertinent medical records
including radiographs, microbiology, laboratory evaluations, and discussion with primary team, consultants, pharmacy, nutrition, physical therapy, case management, charge nurse, critical care nursing, and respiratory therapy.
Subjective Dataa
Subjective Data
Date of Service:
Date of Service: January 12, 2025
Chief Complaint: [facility] Follow Up (Hypoxemic respiratory failure/pneumonia/toxic metabolic encephalopathy)
Subjective:
Overnight remained calm at but still intermittently agitated.
Unable to provide detailed history, confused. Hallucinating.
Review of Systems
General: Other (Unable to provide due to mental status change.)
Objective Data
Data Reviewed
Vital Signs / I&O / Oxygen:
Vital Signs
Temp Pulse Resp BP Pulse Ox
97.0 F 64 21 153/100 94
01/12/25 08:00 01/12/25 10:00 01/12/25 10:00 01/12/25 10:00 01/12/25 10:22
Intake and Output
01/11/25 01/12/25 01/13/25
06:59 06:59 06:59
Intake Total 972.2 / 992.2 3030.4 / 3200.4 230 / 230
Output Total 2955 / 2955 3675 / 3675 400 / 400
Balance -1982.8 / -1962.8 -644.6 / -474.6 -170 / -170
SaO2 [A/C] 97
SaO2 94
Nasal Cannula flow liters per 6
minute
Physical Exam
General: Respiratory Distress (negative), Chills (negative) and Sweats (negative)
HEENT: Normocephalic and Anicteric
Cardiovascular: S1-S2 and Peripheral Edema (negative)
Respiratory: Wheeze (negative), Crackles (negative), Rhonchi (Scattered) and Non-Labored Respirations
GI: Soft, Non Distended, Non Tender and Normal Bowel Sounds
Neurology: Tremors (negative), Other (Confused, agitated. Speech is clearer today. Unable to follow instructions. Moving 4) and Other (Occasionally becomes agitated/violent and tries to jump out of bed)
Skin: Warm, Dry, Cyanosis (negative) and Jaundice (negative)
Labs/Micro/Reports
Lab Data
01/12/25 03:28
01/12/25 03:28
Microbiology
01/07/25 21:12 Blood/Venous Blood Culture - Preliminary
No Growth in 4 days- Final report to follow
01/07/25 21:12 Blood/Venous Blood Culture - Preliminary
Diptheroids
01/07/25 21:12 Blood/Venous Gram Stain - Preliminary
01/08/25 13:56 Endotracheal Respiratory Culture - Final
Yeast
01/08/25 13:56 Endotracheal Gram Stain - Final
01/08/25 00:01 Urine Urine Culture - Final
NO GROWTH
--- NOTE | 2025-01-12 10:44 | PTCARENOTE ---
Addendum entered by Mela Hutchinson RN 01/12/25 11:20:
unable to insert ngt in spite of sedation with haldol due to patient agitation. Body Shop Technician updated
Original Note:
attempted to place ngt as patient failed swallow evaluation. patient became very agitated. medicated with haldol per prn order. patient aunt at bedside
--- NOTE | 2025-01-12 11:29 | PTOTSP ---
Speech Therapy Evaluation:
Pt with acute on chronic risk factors of dysphagia including ? brain damage since age 11 from seizures, seizures, AHRF, prolonged intubation (01/07-01/10), and encephalopathy. Session limited to 2 sips of water, in which pt demonstrated weak cough
response in 1/2 trials. Pt became more lethargic as session progressed and trials discontinued d/t safety concerns. Pt with current PNA, decreased WBC count, and increased O2 requirements. Aspiration risk elevated given DEVAUGHN, temporary dependence for
oral care, and compromised/tenuous respiratory status.
Recommend:
1. Temporary NPO
2. Medications non-oral
3. Oral care 3x/daily
4. SENSOR OPERATOR to follow to assess candidacy for ARHP and/or diet initiation
[2025-01-12 11:32] LABS: Glucose - Point of Care 105 mg/dl (70-99)
--- NOTE | 2025-01-12 11:50 | W.PN.HOSP.TC ---
Today's Communication/Plan
-
Antiseizure medicines adjustments per neurology
MRI pending
Wean O2 as tolerated.
Take foot Iv out as he has a mid line
Assessment / Plan
Assessment / Plan
44-year-old male presented to ER for cough and congestion. He was weak and tired and had vomiting and diarrhea. Patient is from [place] and camping with family. He also had a tick on his body which was pulled out. Patient was initially placed
on supplemental oxygen and then intubated. History of seizures but has not had one in many years. Patient is a smoker and also uses marijuana.
Patient on mid flow
Cardiovascular system S1-S2 appreciated
Chest clear to auscultation anteriorly
Decreased bases
Abdomen soft and nontender
No pedal edema
Able to communicate. Patient is able to tell me he is from [place] and that he is visiting here. He knows that he is at [facility]. Still appears to be confused
# Acute hypoxic respiratory failure
VDRF
Possible pneumonia-chest x-ray initially shows concern for left upper lobe infiltrate which resolved with intubation. Current chest x-rays is concerning for bilateral interstitial and airspace disease throughout both lungs.
? COPD exacerbation
Initial gas pH 7.35/pCO2 47/PO2 236/bicarb 25.9
Blood culture sent from the ER-shows diphtheroids likely contaminant
Urine Legionella and strep pneumonia antigen-negative
Sedation with propofol, fentanyl
Continue doxycycline, cefepime changed to ceftriaxone
Solu-Medrol for COPD exacerbation per pulmonary-now discontinued
Infectious disease and pulmonary consultations appreciated
Patient now extubated ->high flow oxygen-> Mid flow O2
# Hypotension-I doubt this is septic shock this is likely secondary to medicines such as large dose of propofol. Patient has been off of Levophed and only required it for short duration. Remains stable hemodynamically
# TME/altered mental status-secondary to hypoxia. And also psychiatric illness elevated valproate level-repeat improved. History of seizures.
Neurology input noted-suspected encephalopathy
Head CT-no acute changes
Urine drug screen-Marijuana,
Valproate level high at 169. Improved levels
Currently on Precedex, as needed Haldol
Wellbutrin on hold
Effexor restarted
Also on Resperate on 0.5 mg daily and 0.5 mg twice daily as needed, 2 mg at bedtime
# Vomiting and diarrhea-none since admission
# Tick was retrieved from the body
Lyme serology ordered but it might be too early
Infectious disease following
# Hyponatremia likely hypovolemic-Normalized
# History of seizures-patient is on clobazam, zonisamide, Perampanel, Depakote as outpatient
EEG- No SZ
Neuro following
Valproate level-169 on admission. Levels then improved patient restarted on valproate 500 mg IV every 12, discontinued as of 01/11/2025
Perampanel is non formulary-and patient brought in empty bottles-not on it now
Zonegran restarted
Patient is on clobazam
Patient is on Briviact
MRI of the brain ordered
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
# Pancytopenia-appreciate hematology input. Clinical concern is either infection or medication related especially low platelets with valproic acid And anemia secondary to acute illness continue to follow CBC
# Anxiety and depression-
Continue risperidone-was on 2 mg at bedtime as outpatient currently on 0.5 mg daily and 0.5 mg twice daily as needed
Wellbutrin on hold
Effexor restarted
# Smoker- cessation counselling when stable. Nicotine patch
# GI prophylaxis-PPI
# DVT prophylaxis-Lovenox
# Full code
Discussed with RN
D/W Neuro
Discussed with patient's aunt at bedside
Discussed with speech therapy. Continue no feeding by mouth.
Spoke to mom and updated.
He was living by himself wit 12 year old son and moved with mom in Jul as his place was sold. Mom administers meds for pt. He has not had a SZ in 18 months.
He has a H/O B1 Def . He takes daily B1.
He has confusion at baseline, and not always clear when he talks. he is 'very slow' per mom. She states that he can be agitated after he has a seizure usually but he has not had a seizure in 18 months. She thinks that he may have messed up his
medicines while here, as she gives medicines to him twice a day.
Name of his neurologist. Dr.Carle De Leon , [facility] [phone]
He sees Kirby Owusu [facility]
Total time spent on today's encounter was 51 minutes which included time spent in counseling the patient/family regarding diagnosis and treatment plan as listed above, goals of care, and symptom management. Case was discussed with nursing staff,
specialists, and care coordinators/case management. All labs and imaging personally reviewed by me. Remainder the time spent in detailed review of previous records, lab data, imaging, and other medical provider documentation.
Part of this note was created using voice recognition system. Occasional wrong word or��sound alike� substitutions may have inadvertently occurred due to the inherent limitations of voice recognition software. If noted kindly bring it to my
attention for correction.
Anticipated Discharge: > 48 hours
Subjective/Interval History
-
Date of Service: January 12, 2025
Objective Data
-
Labs:
Laboratory Results
01/12/25
03:28
WBC 4.5 L
Hgb 11.4 L
Hct 32.2 L
Plt Count 100 L D
Sodium 136
Potassium 3.6
Chloride 103
Carbon Dioxide 32 H
BUN 14
Creatinine 0.5 L
Glucose 112 H
Calcium 8.3 L
Vital Signs:
Vital Signs
Temp Pulse Resp BP Pulse Ox
97.6 F 64 21 153/100 94
01/12/25 11:26 01/12/25 10:00 01/12/25 10:00 01/12/25 10:00 01/12/25 10:22
I&O
01/11/25 01/12/25 01/13/25
06:59 06:59 06:59
Intake Total 972.2 / 992.2 3030.4 / 3200.4 230 / 230
Output Total 2955 / 2955 3675 / 3675 400 / 400
Balance -1982.8 / -1962.8 -644.6 / -474.6 -170 / -170
--- NOTE | 2025-01-12 12:03 | W.PN.ONC ---
Today's Communication / Plan
-
continue monitoring cell counts with daily CBC
Impression
Impression
Thrombocytopenia, suspect related to valproic acid
Anemia, leukopenia - suspect related to acute illness
Change in mental status
Plan
Plan
#pancytopenia
Resolving, likely secondary to toxic valproic acid levels
platelets trending upwards, hgb stable, wbc stable
Association between valproic acid and thrombocytopenia is well established.
His other cytopenias are mild and can be attributed to probable infectious illness. Leukopenia resolved, Hgb improved to 12.6g/dL. hemolysis less likely with normal retic & LFTs. haptoglobin high
Platelets should begin to improve 1-3 days after holding valproic acid. Holding drug not an option here but suspect platelets will improve with normalization of valproic acid level. platelet count improved to 81,000. No evidence of acute DIC with
normal fibrinogen
T/C splenic U/S once pt is clinically stable.
Subjective/Objective
Subjective/Objective
Vital Signs:
Vital Signs
Temp Pulse Resp BP Pulse Ox
97.6 F 64 21 153/100 94
01/12/25 11:26 01/12/25 10:00 01/12/25 10:00 01/12/25 10:00 01/12/25 10:22
Lab Results:
Laboratory Data
WBC 4.5 10^3/uL (4.8-10.8) L 01/12/25 03:28
Hgb 11.4 g/dL (13.0-18.0) L 01/12/25 03:28
Plt Count 100 10^3/uL (130-400) L D 01/12/25 03:28
PT 12.5 Sec (11.4-14.6) 01/07/25 21:12
INR 0.89 01/07/25 21:12
APTT 36.2 Sec (23.4-35.0) H 01/07/25 21:12
eGFR > 60.00 01/12/25 03:28
--- NOTE | 2025-01-12 12:19 | PTCARENOTE ---
Addendum entered by Mela Hutchinson RN 01/12/25 13:26:
awaiting orders for blood pressure management
Original Note:
reassessed. hospitalist updated by breann text re:inability to obtain enteral access due to patient combativeness in spite of haldol prn/precedex, as well as blood pressure trends
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
[2025-01-12] MEDS: D5LR 1000 IV (13:21)
[2025-01-12] MEDS: EFFEXOR TUBE (13:39)
--- NOTE | 2025-01-12 13:43 | PTCARENOTE ---
D/W MRI staff patient mental status and need for 4 point restraints. they state they would be unable to perform MRI unless patient is able to keep still and they have no way to restrain patient when in the MRI thus this would be unsafe to complete
MRI at this time. message sent by [employer] text to neurologist to inform of delay in obtaining MRI
[2025-01-12] MEDS: APRESOLINE 5 MG IV ×2 (14:10→19:07)
--- NOTE | 2025-01-12 14:13 | CM ---
Multiple IV medications, Dobhoff, agitated at times, continue to wean O2. Discharge POC: TBD. Ultimately will return to [place]. Father is in [facility] with his sister until patient able to return.
--- NOTE | 2025-01-12 15:43 | W.PN.NEURO.1 ---
Today's Communication / Plan
-
.
Subjective/Objective
Subjective Data
Date of Service: January 12, 2025
Neurology follow-up note
24-hour events, intermittently hypertensive up to 185/90, and agitated requiring Precedex and multiple doses of haloperidol, afebrile.
Routine EEG (01/12/2025)-mild generalized slowing.
Labs: CK, ammonia-unremarkable, platelets�100.
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
PSH: right shoulder replacement, left shoulder repair
SH: active smoker
All: NKDA
ROS: Negative for headache, change in strength.
General: Restrained, Spit Ko is on.
Cardio: Regular rhythm. Extremities are without cyanosis or edema.
Neuro:
Mental Status: Awake, oriented to self, age, year. Poor attention and impaired comprehension. Follows simple requests. No hemineglect.
Cranial Nerves: Orthophoric primary gaze. Impaired saccadic pursuit. Pupils are equally round and reactive to light. No clear facial weakness. Hearing is preserved, edentulous dysarthria.
Motor: Moves all limbs within bed plane.
Reflexes: Limited exam due to restraints
Sensory: Unable due to poor attention
Coordination: No tremors myoclonic movement
Gait: deferred
Assessment and Plan:
I. Encephalopathy (infectious, hypoxic, toxic), significantly improved
II. Medically refractory epilepsy. History of TBI
III. Pancytopenia
IV. Depakote toxicity
- Seizure and aspiration precautions
- Continue thiamine, nicotine patch
- Brain MRI with and without gerson
- Continue Brivacetam 100 mg QD, Clobazam 20 mg BID, Fycompa 10 mg nightly and Zonegran 100 mg nightly.
- Hold VPA
- Avoid medications known to lower seizure threshold(Cefepime, Risperidone, Bupropion)
- DVT prophylaxis.
I personally reviewed all radiology and labs along with past medical records pertinent to current medical problems. Total time spent in patient care is 35 minutes.
Thank you for allowing us to participate in the care of this patient. We will continue to follow. Please do not hesitate to contact us with any questions or concerns
Objective Data
Vital Signs
Temp Pulse Resp BP Pulse Ox
36.4 C 54 17 175/107 93
01/12/25 11:26 01/12/25 14:10 01/12/25 14:00 01/12/25 14:10 01/12/25 14:00
Lab Results
01/12/25 03:28
01/12/25 03:28
PT 12.5 Sec (11.4-14.6) 01/07/25 21:12
INR 0.89 01/07/25 21:12
APTT 36.2 Sec (23.4-35.0) H 01/07/25 21:12
Sodium 136 mmol/L (135-145) 01/12/25 03:28
Potassium 3.6 mmol/L (3.5-5.1) 01/12/25 03:28
BUN 14 mg/dl (9-20) 01/12/25 03:28
Glucose 112 mg/dl (70-99) H 01/12/25 03:28
Calcium 8.3 mg/dl (8.4-10.2) L 01/12/25 03:28
Phosphorus 2.3 mg/dl (2.5-4.5) L 01/10/25 03:52
Hgz-G-Tfbqcygqifc Pept 213 pg/ml 01/09/25 04:29
Vitamin B12 976 pg/ml (239-931) H 01/11/25 19:38
Ur Buprenorphine Negative (Negative) 01/08/25 00:01
Patient Allergies
No Known Allergies Allergy (Unverified 01/07/25 20:58)
Vital Signs and Labs
-
Vital Signs and Labs:
Vital Signs
Temp Pulse Resp BP Pulse Ox
36.4 C 54 17 175/107 93
01/12/25 11:26 01/12/25 14:10 01/12/25 14:00 01/12/25 14:10 01/12/25 14:00
Lab Results
01/12/25 03:28
01/12/25 03:28
PT 12.5 Sec (11.4-14.6) 01/07/25 21:12
INR 0.89 01/07/25 21:12
APTT 36.2 Sec (23.4-35.0) H 01/07/25 21:12
Sodium 136 mmol/L (135-145) 01/12/25 03:28
Potassium 3.6 mmol/L (3.5-5.1) 01/12/25 03:28
BUN 14 mg/dl (9-20) 01/12/25 03:28
Glucose 112 mg/dl (70-99) H 01/12/25 03:28
Calcium 8.3 mg/dl (8.4-10.2) L 01/12/25 03:28
Phosphorus 2.3 mg/dl (2.5-4.5) L 01/10/25 03:52
Jif-X-Ntdpnujprmo Pept 213 pg/ml 01/09/25 04:29
Vitamin B12 976 pg/ml (239-931) H 01/11/25 19:38
Ur Buprenorphine Negative (Negative) 01/08/25 00:01
Medications
-
Medications:
Generic Name Dose Route Start Last Admin
Trade Name Freq PRN Reason Stop Dose Admin
Brivaracetam 100 mg 01/10/25 20:00 01/12/25 07:40
Brivaracetam (10 Mg/Ml) 5 Ml Vial IV 01/14/25 19:59 100 mg
BID MICHELLE Administration
Ceftriaxone Sodium 2,000 mg 01/11/25 18:00 01/11/25 16:46
Ceftriaxone 2,000 Mg/20 Ml Vial IV 2,000 mg
Q24H MICHELLE Administration
Dextrose 12.5 grams 01/11/25 19:00
Dextrose 50% (0.5 Grams/Ml) 50 Ml Syringe IV 02/08/25 18:59
[id number] PRN
hypoglycemia
Protocol
Enoxaparin Sodium 40 mg 01/12/25 18:00
Enoxaparin Sodium 40 Mg/0.4 Ml Syringe SC 02/09/25 17:59
QPM MICHELLE
Haloperidol Lactate 1 mg 01/11/25 08:53 01/12/25 10:40
Haloperidol 5 Mg/Ml 1 Ml Vial IV 02/08/25 08:52 1 mg
Q4HPRN PRN Administration
agitation
Hydralazine HCl 5 mg 01/12/25 14:01
Hydralazine 20 Mg/Ml Vial IV 02/09/25 14:00
Q6HPRN PRN
SBP over 160 mm Hg
Doxycycline Hyclate 100 mg/ 260 mls @ 260 mls/hr 01/08/25 00:00 01/12/25 11:28
Sodium Chloride IV 260 mls
Q12@0000,1200 MICHELLE Administration
Dexmedetomidine HCl 400 mcg in 100 mls @ 0 mls/hr 01/09/25 13:45 01/12/25 13:21
Precedex IV 100 mls
PER PROTOCOL MICHELLE Administration
Protocol
Per Protocol
Dextrose/Lactated Ringer's 1,000 mls @ 60 mls/hr 01/12/25 13:00 01/12/25 13:21
D5lr IV 1,000 mls
.[id number] MICHELLE Administration
Nicotine 14 mg 01/08/25 19:10 01/12/25 07:40
Nicotine 14 Mg Patch TRANSDERM 02/05/25 19:09 14 mg
DAILY MICHELLE Administration
Non-Formulary Item 1 0 mg 01/08/25 22:00 01/11/25 21:07
Unit (Clobazam 20 TUBE 02/05/25 21:59 20 mg
Mg Tablet 1 Tablet HS MICHELLE Administration
Po Nightly)
Non-Formulary Medication 10 mg 01/08/25 22:00
Perampanel [Fycompa] PO 02/05/25 21:59
HS MICHELLE
Pantoprazole Sodium 40 mg 01/08/25 08:00 01/12/25 07:39
Pantoprazole Sodium 40 Mg/10 Ml Vial IV 02/05/25 07:59 40 mg
DAILY MICHELLE Administration
Patch Removal 0 patch 01/08/25 22:00 01/11/25 21:09
Remove Nicotine Patch REMOVE 02/05/25 21:59 1 patch
HS MICHELLE Administration
Polyethylene Glycol 17 grams 01/08/25 08:00 01/12/25 10:39
Polyethylene Glycol Powder 17 Grams Packet TUBE 02/05/25 07:59 Not Given
DAILY MICHELLE
Risperidone 2 mg 01/11/25 22:00 01/11/25 21:08
Risperidone 2 Mg Tablet TUBE 02/08/25 21:59 2 mg
HS MICHELLE Administration
Risperidone 0.5 mg 01/12/25 08:00 01/12/25 08:07
Risperidone 0.5 Mg Tablet TUBE 02/09/25 07:59 0.5 mg
DAILY MICHELLE Administration
Risperidone 0.5 mg 01/11/25 16:26
Risperidone 0.5 Mg Tablet TUBE 02/08/25 16:25
BIDPRN PRN
agitation
Sodium Chloride 0 flush 01/07/25 23:00
Sodium Chloride 0.9% (Flush) Syringe IV 02/04/25 22:59
PER PROTOCOL MICHELLE
Sodium Chloride 10 ml 01/08/25 08:00 01/12/25 07:39
Sodium Chloride 0.9% (Preservative Free) 10 Ml Vial IV 02/05/25 07:59 10 ml
DAILY MICHELLE Administration
Sodium Chloride 0 flush 01/12/25 17:55
0.9% Nacl Flush If Lactated Ringers Ivf Ordered IV 02/09/25 17:54
BID@1755,1805 MICHELLE
Sterile Water 20 ml 01/11/25 18:00 01/11/25 16:47
Sterile Water For Injection 20 Ml Vial IV 02/08/25 17:59 20 ml
Q24H MICHELLE Administration
Thiamine HCl 100 mg 01/12/25 08:00 01/12/25 07:39
Thiamine (100 Mg/Ml) 2 Ml Vial IV 01/14/25 08:01 100 mg
DAILY MICHELLE Administration
Venlafaxine HCl 50 mg 01/12/25 08:00 01/12/25 13:39
Venlafaxine 50 Mg Regular Release Tablet TUBE 02/09/25 07:59 Not Given
BID@0800,1600 MICHELLE
Zonisamide 100 mg 01/08/25 22:00 01/11/25 21:09
Zonisamide Susp 10 Mg/Ml In Oral Syringe TUBE 02/05/25 21:59 100 mg
HS MICHELLE Administration
Home Medications
-
Home Medications
bupropion HCl 200 mg tablet,12 hr sustained-release 400 mg PO DAILY Mental Health/Anxiety 01/07/25
clobazam 20 mg tablet 20 mg PO HS Seizures 01/07/25
divalproex 500 mg tablet,delayed release 500 mg PO BID Seizures 01/07/25
omeprazole 40 mg capsule,delayed release 40 mg PO DAILY Gastrointestinal Issue 01/07/25
perampanel 10 mg tablet (Fycompa) 10 mg PO HS Seizures 01/07/25
risperidone 2 mg tablet 2 mg PO HS Mental Health/Anxiety 01/07/25
venlafaxine 150 mg capsule,extended release 24 hr 150 mg PO DAILY Mental Health/Anxiety 01/07/25
zonisamide 100 mg capsule 100 mg PO HS Seizures 01/07/25
--- NOTE | 2025-01-12 16:09 | PTCARENOTE ---
Addendum entered by Mela Hutchinson RN 01/12/25 17:50:
patient more cooperative, but still hallucinating. sleeping at times. pulse oximeter 90's on high flow oxygen.
Original Note:
patient pulled off condom cath, bed saturated with urine, dyspneic, lungs with fine rhonchi bilaterally. non productive cough, not able to expectorate. pulse oximeter 84 in spite of increased mid flow to 15 liters. RT notified. placed back on high
flow 70% 45 liters. now respiratory rate 18, pulse oximeter 95. 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 patient remains confused, hallucinating but able to dstae he is in [place] ad in the hospital
--- NOTE | 2025-01-12 16:41 | W.PN.UPDATE ---
Update Note
Progress Note Update
Clinically improving. Following commands per
Continues to be intermittently confused
More cooperative.
Continue to provide oxygen to maintain pulse ox above 90%
Start nebulizer for secretion clearance
Acapella device will be added as well now that he is more cooperative.
[2025-01-12] MEDS: LOVENOX 40 MG SC (16:57)
[2025-01-12] MEDS: ROCEPHIN 2000 MG IV (16:57)
[2025-01-12] MEDS: FLUSH (NSS) 1 FLUSH IV ×2 (16:58→17:04)
[2025-01-12] MEDS: STERILE WATER FOR INJECTION 20 ML IV (16:58)
--- NOTE | 2025-01-12 17:42 | EEGC.RPT ---
Continuous EEG Report
Recording
Start Date of Data Reviewed: 01/12/25
Done with Video Recording: Yes
Report
TECHNICAL REMARKS:��This is a technically satisfactory eighteen channel record employing 21 disc electrodes applied according to a measured international 10-20 electrode placement system.��There were no significant technical difficulties.��The study
was done on a F[employer] System.
CLINICAL HISTORY:�This is a 44 year old man with encephalopathy. �This study was requested to look for epileptiform activity.
MEDICATIONS: Clobazam, Zonisamide
STUDY DURATION: 28 min, 01 sec
�
REPORT: �At the onset of the EEG, the patient is awake. The background activity consists of 9-9.5 Hz, persistent, posteriorly dominant, moderate in amplitude, symmetric, and rhythmic activity that is reactive to eye-opening with admixed 10-15
microvolts delta activity.� Anteriorly, it consists of a mixture of symmetric and rhythmic 5-10 microvolts, 15-20 beta activity, as well as central 6-7 Hz 10-20 microvolts theta activity. Intermittent generalized 5-6 Hz 10-20 microvolts activity
lasting for 1-1.5 seconds during wakefulness is present. Stepwise intermittent photic stimulation (1-31 Hz) did not induce any additional abnormalities. Hyperventilation was not performed. Drowsiness is characterized by low amplitude mixed frequency
activity, decreased eye blinking, and muscle artifact.
IMPRESSION: �This is an abnormal awake and drowsy EEG due to a mild generalized slowing. This finding indicates a mild encephalopathy that is not specific to etiology.� No epileptiform activity was seen.� If the clinical picture warrants, a
sleep-deprived awake and sleep record may be helpful.
[2025-01-12] MEDS: RISPERDAL TUBE (19:42)
[2025-01-12] MEDS: NON-FORMULARY ITEM TUBE (19:42)
[2025-01-12] MEDS: ZONEGRAN TUBE (19:42)
[2025-01-12] MEDS: DUONEB 3 ML INH (19:47)
--- NOTE | 2025-01-12 20:37 | PTCARENOTE ---
Pt received at 19:00, some agitation and restlessness/yelling out. Pt oriented to self, and intermittently orientated to place. Yelling out and verbally threatening staff. Some hallucinations, seeing other people in the room and yelling at them. Pt
given PRN haldol. SR, HR 70s-80s, pulses palpable. PRN hydralzine given as ordered for BP 165/107. Pt on HFNC 50L/60%, tolerating, coarse/rhonchi t/o. +bowel sounds, no BM. Condom cath in place, voiding yellow urine. Remains on precedex gtt at max
rate, with continued agitation/restlessness and periods of being drowsy and restful. Repositioned q2h.
--- NOTE | 2025-01-12 23:43 | PTCARENOTE ---
Pt restless, less verbally aggressive. Declines mouth care/refuses to open mouth, unless he is given a glass of water--pt remains NPO. Pt with episode of desatting into the 80s, NRB applied on top of the HFNC 50L/60%. NRB on briefly, pt recovered
quickly. Pulse ox 94% at this time.
[2025-01-13] VITALS (23 sets, daily range): BP systolic 104–167; BP diastolic 79–117; PULSE 93–97; O2SAT 93; BMI 16.1
[2025-01-13] MEDS: HALDOL 1 MG IV (04:00)
[2025-01-13] MEDS: APRESOLINE 5 MG IV (05:20)
[2025-01-13 05:39] LABS: Hemoglobin 11.4 g/dL (13.0-18.0); Mean Corp Hgb Conc. 36.8 g/dL (33.0-37.0); Mean Corpuscular Volume 89.9 fL (80.0-94.0); Platelet Count 145 10^3/uL (130-400); Red Blood Cell Count 3.45 10^6/uL (4.70-6.10); White Blood Cell Count 4.4 10^3/uL (4.8-10.8)
--- NOTE | 2025-01-13 05:58 | PTCARENOTE ---
Pt assessment unchanged. Pt remains oriented to self, and intermittently oriented to place. Hallucinations continue, pt talking people that are not present in the room.
[2025-01-13 06:10] LABS: Blood Urea Nitrogen 13 mg/dl (9-20); Calcium 8.6 mg/dl (8.4-10.2); Carbon Dioxide 28 mmol/L (22-30); Chloride 102 mmol/L (98-107); Estimated Creatinine Clearance 114 ml/min; Glucose 115 mg/dl (70-99); Magnesium 1.6 mg/dl (1.6-2.3); Potassium 3.8 mmol/L (3.5-5.1); Sodium 134 mmol/L (135-145); Triglycerides 180 mg/dl (10-149); eGFR > 60.00
--- NOTE | 2025-01-13 07:15 | DOWNTIME ---
Addendum entered and electronically signed by Digna Lizama RN 01/13/25 14:20:
Correction: Downtime was 01/13/2025 from 0100 to 01/13/2025 at 0415
Original Note:
There was a [employer] Client Plastic Surgeon Downtime on 01/12/2025 from 0100 to 01/13/2025 at 0415. Downtime documentation of patient's care, including medication administrations, has been reconciled in the electronic record per guidelines. Refer to the
patient's paper chart under the miscellaneous tab to see printed paper medication records and downtime forms.
[2025-01-13] MEDS: DUONEB 3 ML INH ×3 (07:21→19:54)
[2025-01-13] MEDS: D5LR 1000 IV (08:05)
--- NOTE | 2025-01-13 09:17 | W.PN.ID1 ---
Date of Service
Date of Service: January 13, 2025
Today's Communication
- Continue doxycycline (d6) -> transition to po when able
- Continue ceftriaxone (d3)
Assessment / Plan
# Pneumonia (Cough x 2 weeks)
# Change in mental status - resolving
# Possible tick exposure (pt denies)
# Fever - resolved
# Pancytopenia - improving
# s/p Hypoxemic respiratory failure, extubated, on HFNC
# Hyponatremia
# History of seizure disorder
# Cachexia
# Tobacco/marijuana use
-COVID/Flu neg
-Urine legionella, S. pneumo neg (not sensitive tests)
-UA neg
-CXR minimal LLL opacity
- Blood cx Diphtheroid = contaminant
- sputum yeast (not significant)
- Lyme screen negative
- Blood parasite smear negative
- Anaplasma and Ehrlichia PCR negative
- HIV negative
-s/p cefepime (01/07 -01/11)
- Continue doxycycline (d6) -> transition to po when able
- Continue ceftriaxone (d3)
�������������������
Chief Complaint
-: Pneumonia
Subjective / Review of Systems
Patient now awake and more alert.
Denies tick exposure. States he was staying in a camper (not campgrounds).
+ cough x 2 weeks.
Vital Signs / Physical Exam
Vital Signs
Vital Signs
Temp Pulse Resp BP Pulse Ox
97.4 F 74 17 122/84 94
01/13/25 04:29 01/13/25 08:00 01/13/25 08:00 01/13/25 08:00 01/13/25 08:00
Physical Exam
Constitutional: Acutely Ill
Eyes: Sclera Anicteric
Cardiovascular: Regular Rate and S1/S2
Pulmonary: Rales (bases)
Gastrointestinal: Soft, Non Tender, Non Distended and Normal Bowel Sounds
Genito-Urinary: Clear Urine
Extremities: Negative Edema
Neurological: Awake and Oriented; Negative Meningeal Signs
Psychological: Calm
Objective Data
Lab Data
Lab Results
01/13/25 05:23
01/13/25 05:23
PT 12.5 Sec (11.4-14.6) 01/07/25 21:12
INR 0.89 01/07/25 21:12
APTT 36.2 Sec (23.4-35.0) H 01/07/25 21:12
Estimated Creat Clear 114 ml/min 01/13/25 05:23
Lactic Acid 0.8 mmol/L (0.7-2.0) 01/08/25 15:19
Total Bilirubin Cancelled 01/10/25 07:54
AST Cancelled 01/10/25 07:54
ALT Cancelled 01/10/25 07:54
Alkaline Phosphatase Cancelled 01/10/25 07:54
Most recent labs reviewed.
Micro Results:
01/07/25 21:12 Blood Culture - Final
Blood/Venous No Growth - Final Report
01/07/25 21:12 Blood Culture - Preliminary
Blood/Venous Diptheroids
Gram Stain - Preliminary
01/08/25 13:56 Respiratory Culture - Final
Endotracheal Yeast
Gram Stain - Final
01/08/25 00:01 Urine Culture - Final
Urine NO GROWTH
01/08/25 13:18 Blood Parasites Smear - Final
Blood/Venous
01/08/25 10:00 Nasal Screen MRSA (PCR) - Final
Nose MRSA not detected - performed by PCR methodology.
01/08/25 00:23 Legionella Urinary Antigen - Final
Urine Negative for Legionella pneumophila Serogroup 1 antigen.
A negative result does not rule out the possiblity of
Legionella infection due to other serogroups or species of
Legionella. Clinical correlation is recommended.
Streptococcus pneumoniae Antigen (M - Final
Negative for Streptococcus pneumoniae antigen.
A negative result does not exclude infection with
Streptococcus pneumoniae. Clinical correlation is
recommended.
01/07/25 21:12 Influenza Types A & B (COURTNEY) - Final
Nasal Swab Negative for Influenza A & B, NAAT
Negative results must be combined with clinical observations
and patient history.
Nucleic Acid Amplification test (NAAT)performed on the
[employer] platform.
01/08/25 CXR: Minor opacity in the left lung base
01/08/25 AXR: Moderate fecal matter throughout the colon. No evidence of intestinal obstruction.
01/07/25 CXR: Probable left upper lobe pneumonia. Recommend follow-up imaging after treatment to rule out underlying mass.
01/07/25 CXR: Improved aeration in the left upper lobe. No convincing focal infiltrates. Findings suggesting mild diffuse pneumonitis and/or pulmonary interstitial edema.
01/07/25 CT head: No acute intracranial abnormality noted.
[2025-01-13] MEDS: BRIVIACT 100 MG IV (09:18)
[2025-01-13] MEDS: THIAMINE INJECTION 100 MG IV (09:19)
[2025-01-13] MEDS: NSS (PRESERVATIVE FREE) 10 ML IV (09:19)
[2025-01-13] MEDS: PROTONIX IV 40 MG IV (09:19)
[2025-01-13] MEDS: PRECEDEX 100 IV (09:43)
--- NOTE | 2025-01-13 10:23 | W.PN.ONC ---
Today's Communication / Plan
-
Counts appear stable platelets now within normal limits, white count stable, hemoglobin stable
Continue monitoring with CBC
Will sign off, please reach out with any further questions or concerns
Impression
Impression
Thrombocytopenia, suspect related to valproic acid
Anemia, leukopenia - suspect related to acute illness
Change in mental status
Plan
Plan
#pancytopenia
Resolved, platelets within normal limits. White count stable around 4, hemoglobin stable around 11. Hematology will sign off. Please reach out with any questions or concerns
platelets trending upwards, hgb stable, wbc stable
Association between valproic acid and thrombocytopenia is well established.
His other cytopenias are mild and can be attributed to probable infectious illness. Leukopenia resolved, Hgb improvedL. hemolysis less likely with normal retic & LFTs. haptoglobin high
Platelets should begin to improve 1-3 days after holding valproic acid. Holding drug not an option here but suspect platelets will improve with normalization of valproic acid level. platelet count improved to 81,000. No evidence of acute DIC with
normal fibrinogen
T/C splenic U/S once pt is clinically stable.
Subjective/Objective
Subjective/Objective
Patient alert and talkative today.
Vital Signs:
Vital Signs
Temp Pulse Resp BP Pulse Ox
97.4 F 74 17 122/84 96
01/13/25 04:29 01/13/25 08:00 01/13/25 08:00 01/13/25 08:00 01/13/25 09:30
Lab Results:
Laboratory Data
WBC 4.4 10^3/uL (4.8-10.8) L 01/13/25 05:23
Hgb 11.4 g/dL (13.0-18.0) L 01/13/25 05:23
Plt Count 145 10^3/uL (130-400) D 01/13/25 05:23
PT 12.5 Sec (11.4-14.6) 01/07/25 21:12
INR 0.89 01/07/25 21:12
APTT 36.2 Sec (23.4-35.0) H 01/07/25 21:12
eGFR > 60.00 01/13/25 05:23
--- NOTE | 2025-01-13 10:25 | PTOTSP ---
Speech Language Pathology
Pt seen for dysphagia tx. Trialed puree, regular solids, and thin liquids. Also seen for med pass with meds 1 at a time whole with liquid. Slightly prolonged mastication noted, but this was functional given time. No overt signs of aspiration.
Recommend:
(1) Initiate regular solids/thin liquids
(2) General aspiration precautions
(3) Meds as tolerated
(4) [employer] EXECUTIVE to continue to follow
--- NOTE | 2025-01-13 10:26 | PTCARENOTE ---
Received pt sleeping.Awakens to voice.RASS -1.Precedex gtt weaned.Pt now awake and alert.Conversing mostly appropriately.Requested and did speak to his father.+LERMA.Assists with repositioning.c/o chronic whole body pain that is tolerable at this
time.SR noted.IVF infusing as ordered.O2 titrated from high flow to 6l midflow.POX 93%Scattered rhonchi noted.Frequent cough.Expectorating moderate amount thick beavers sputum.Speech therapy assessment in progress.Pt able to take oral medications.No
BM.Voiding yellow urine via condom cath.Skin integrity as documented.Plan of care discussed with pt and his father.
[2025-01-13] MEDS: EFFEXOR 50 MG TUBE (10:34)
[2025-01-13] MEDS: MIRALAX 17 GRAMS TUBE (10:34)
[2025-01-13] MEDS: NICODERM TRANSDERMAL 14 MG TRANSDERM (10:35)
[2025-01-13] MEDS: RISPERDAL 0.5 MG TUBE (10:35)
--- NOTE | 2025-01-13 11:37 | W.PN.INTV ---
Today's Communication / Plan
Recommendations
Wean down FiO2
Continue secretion clearance interventions
Continue antiseizure medication
Continue antipsychotics/outpatient medication
Aspiration precautions, advance diet
Continue antibiotics
Possible transfer to telemetry later today.
If transferred out of the ICU pulmonary will follow for hypoxemia/pneumonia
Assessment
-
Assessment: 44-year-old tobacco smoker male with a past medical history of seizure disorder who presented with slurred speech, weakness and shortness of breath for 3 days. Patient is from [place] and was camping with family here in [place]
for the past 3 days. Per documentation, the daughters had removed a tick from the patient on the day prior to arrival, however unclear if the tick was engorged or not. The patient has a known seizure disorder on several AEDs, and has not had
seizures in many years and he does not use illicit drugs although he does smoke marijuana. In the ER he initially was afebrile to 99.9 �F, pulse rate 124, respiratory rate 22, BP 113/86 and saturating 71% on room air. Patient had to be intubated
due to continued altered mental status for airway protection purposes. Initial labs showed leukopenia to 4.1, Hb 11.5, platelet count 57, 33% bands, serum sodium 126, urinalysis with no signs of UTI, and urine drug screen for marijuana +
benzodiazepines. Valproic acid level was drawn and found to be in toxic range at 169.2 ug/ml. Urine and blood cultures collected. Initial CXR showed suspected left upper lobe pneumonia. In the ER he was given a total of 1.5 L NS 0.9%, Zosyn,
DuoNebs and Tylenol. Given that he was intubated, he was admitted to the ICU for further care and [employer] services consulted for additional management/recommendations.
Chronic conditions [employer]: Seizure disorder, tobacco use disorder
Impression:
#Acute respiratory failure with hypoxia + hypercapnia requiring mechanical ventilation
Extubated 01/10/2025
#Suspected left-sided CAP (?aspiration given his AMS)
# Toxic metabolic encephalopathy-possibly delirium.
#Pancytopenia with significant bandemia at 33% on admission
#Hypotonic hyponatremia
#Vomiting/diarrhea
#Seizure disorder with supratherapeutic/toxic valproic acid levels
#Depression/anxiety
#Tick found on body (unclear if engorged or not and no reports of signs of targetoid lesion)
#Tobacco use
Plan:
-
-
Hypoxemic respiratory failure due to above: Extubated 01/10/2025.
Suspected pneumonia-bibasilar infiltrates on x-ray suggest aspiration postseizure.
Oxygenation improved currently on mid flow. Wean down as able.
Strong cough effort
Not bronchospastic on exam
Continue secretion clearance interventions DuoNebs 3 times a day.
Incentive spirometry
Acapella device as able
- Initially on steroids but were discontinued 01/09/2025.
-
Nicotine patch in place. Patient is an active smoker.
- Continue with antibiotics ceftriaxone/doxycycline for pneumonia.
-s/p cefepime (01/07 -01/11)
- Continue doxycycline (d6) -> transition to po when able-possibly today.
- Continue ceftriaxone (d3)
- Follow-up infectious workup including blood cultures x 2 (collected 01/07), urine culture (collected 01/08), and respiratory culture (from ETT - grew yeast, likely colonization)
- 1 set of blood cultures from 01/07 has grown diphtheroids � suspected contaminant
- Negative Lyme serology; HIV antigen/antibody combo is negative;, Ehrlichia and Anaplasma PCR negative.
Toxic metabolic encephalopathy. Mental status improved. Less agitated.
Following commands.
No motor deficit.
-Discontinue Precedex today.
- Continue AEDs except for valproic acid given its toxic levels, which we will continue to trend; neurology consulted and recs appreciated; family needs to bring in his Fycompa
- Dobbhoff tube placed 01/11/2025 -patient pulled it off overnight.
- Will advance diet.
- Will use Haldol IV as needed for procedures.
- Neurology last saw patient 01/09/2025.
- EEG today 01/12/2025 no active seizures per
Valproic levels were at the toxic range. Held and then restarted-levels are improved.
Neurology correspondence reviewed: IV thiamine given.
Brain MRI when able-patient unable to cooperate.
Cont. Brivacetam, Clobazam, Fycopa and zonegran.
Valproic acid still on hold.
Wellbutrin on hold as it decrease seizure threshold.
Will need to also limit Haldol.
-
Psychiatry also following:
Outpatient medications to be restarted
Venlafaxine
Now also on Risperdal at bedtime
-
Cytopenias: Improving.
Likely due to critical illness
Thrombocytopenia possibly from valproic acid which was at toxic levels.
Follow daily CBC
Hematology consulted and following
-
- DVT ppx: Lovenox
Code status: Full code
Continue ICU level of care for this critically ill patient
Critical care statement: A total of 31 minutes of critical care time was provided for this patient today. This includes management of unstable vital signs, evaluation of the patient at bedside, reviewing the patient's pertinent medical records
including radiographs, microbiology, laboratory evaluations, and discussion with primary team, consultants, pharmacy, nutrition, physical therapy, case management, charge nurse, critical care nursing, and respiratory therapy.
-
If Precedex drip is able to be weaned off and mental status remains stable. Patient will be transferred to telemetry and pulmonary will continue to follow. Will reevaluate in the afternoon
Subjective Dataa
Subjective Data
Date of Service:
Date of Service: January 13, 2025
Chief Complaint: [facility] Follow Up (Hypoxemic respiratory failure/pneumonia/toxic metabolic encephalopathy)
Subjective:
Patient feels better
Has a strong cough effort
Feels less short of breath
More cooperative
Denies headache or blurry vision
Review of Systems
Cardiopulmonary: Dyspnea (None at rest)
GI: Abdominal Pain (Denied) and Nausea ( denied)
Objective Data
Data Reviewed
Vital Signs / I&O / Oxygen:
Vital Signs
Temp Pulse Resp BP Pulse Ox
97.9 F 82 18 142/90 93
01/13/25 08:00 01/13/25 11:21 01/13/25 11:21 01/13/25 11:00 01/13/25 11:21
Intake and Output
01/12/25 01/13/25 01/14/25
06:59 06:59 06:59
Intake Total 3030.4 / 3200.4 1880 / 1960 348 / 348
Output Total 3675 / 3675 2750 / 2750
Balance -644.6 / -474.6 -870 / -790 348 / 348
SaO2 [A/C] 97
SaO2 93
Nasal Cannula flow liters per 6
minute
Physical Exam
General: Respiratory Distress (negative), Chills (negative) and Sweats (negative)
HEENT: Normocephalic and Anicteric
Cardiovascular: S1-S2 and Peripheral Edema (negative)
Respiratory: Wheeze (negative), Crackles (negative), Rhonchi (Scattered) and Non-Labored Respirations
GI: Soft, Non Distended, Non Tender and Normal Bowel Sounds
Neurology: Awake, Alert, No Motor Deficits and Other (Following commands,)
Skin: Warm, Dry, Cyanosis (negative) and Jaundice (negative)
Labs/Micro/Reports
Lab Data
01/13/25 05:23
01/13/25 05:23
Microbiology
01/07/25 21:12 Blood/Venous Blood Culture - Final
No Growth - Final Report
01/07/25 21:12 Blood/Venous Blood Culture - Preliminary
Diptheroids
01/07/25 21:12 Blood/Venous Gram Stain - Preliminary
01/08/25 13:56 Endotracheal Respiratory Culture - Final
Yeast
01/08/25 13:56 Endotracheal Gram Stain - Final
[2025-01-13] MEDS: VIBRAMYCIN 260 MG IV (12:07)
--- NOTE | 2025-01-13 12:14 | PTCARENOTE ---
Pt assessed.No change in assessment noted.Precedex weaned down.Pt assisted OOB to chair with 2 person minimal assist.Pt eating lunch.Pt's father and aunt at bedside.Home medications returned to pt's father as requested.Fycompa medication not
refilled by family at this time.Pt'd father will bring medication in when available as per pharmacy request.
--- NOTE | 2025-01-13 12:45 | PTCARENOTE ---
Pt's father gave this RN a bottle labelled Fycompa.This medication given to Pharmacist.
--- NOTE | 2025-01-13 13:18 | W.PN.HOSP.TC ---
Addendum entered and electronically signed by Constanza Strauss MD 01/13/25 13:23:
Pancytopenia resolving
Original Note:
Today's Communication/Plan
-
PT evaluation
Regular diet
Continue antibiotics
Weaning Precedex
Assessment / Plan
Assessment / Plan
44-year-old male presented to ER for cough and congestion. He was weak and tired and had vomiting and diarrhea. Patient is from [place] and camping with family. He also had a tick on his body which was pulled out. Patient was initially placed
on supplemental oxygen and then intubated. History of seizures but has not had one in many years. Patient is a smoker and also uses marijuana.
Patient on mid flow
Cardiovascular system S1-S2 appreciated
Chest clear to auscultation anteriorly
Decreased bases
Abdomen soft and nontender
No pedal edema
Able to communicate. Patient is able to tell me he is from [place] and that he is visiting here. He knows that he is at [facility]. Still appears to be confused
# Acute hypoxic respiratory failure
VDRF
Possible pneumonia-chest x-ray initially shows concern for left upper lobe infiltrate which resolved with intubation. Current chest x-rays is concerning for bilateral interstitial and airspace disease throughout both lungs.
? COPD exacerbation
Initial gas pH 7.35/pCO2 47/PO2 236/bicarb 25.9
Blood culture sent from the ER-shows diphtheroids likely contaminant
Urine Legionella and strep pneumonia antigen-negative
Sedation with propofol, fentanyl
Continue doxycycline, cefepime changed to ceftriaxone
Solu-Medrol for COPD exacerbation per pulmonary-now discontinued
Infectious disease and pulmonary consultations appreciated
Patient now extubated ->high flow oxygen-> Mid flow O2
# Hypotension-I doubt this is septic shock this is likely secondary to medicines such as large dose of propofol. Patient has been off of Levophed and only required it for short duration. Remains stable hemodynamically
# TME/altered mental status-secondary to hypoxia. And also psychiatric illness elevated valproate level-repeat improved. History of seizures.
Neurology input noted-suspected encephalopathy
Head CT-no acute changes
Urine drug screen-Marijuana,
Valproate level was high at 169.
Currently on Precedex being weaned
Wellbutrin on hold
Effexor restarted
Also on Resperate on 0.5 mg daily and 0.5 mg twice daily as needed, 2 mg at bedtime
Patient is much better awake alert oriented able to communicate no. Off restraints.
Precedex being weaned
# Vomiting and diarrhea-none since admission
# Tick was retrieved from the body
Lyme serology neg
Infectious disease following
# Hyponatremia likely hypovolemic-Normalized
# History of seizures-patient is on clobazam, zonisamide, Perampanel, Depakote as outpatient
EEG- No SZ
Neuro following
Valproate level-169 on admission. Levels then improved patient restarted on valproate 500 mg IV every 12, discontinued as of 01/11/2025
Perampanel is non formulary-and patient brought in empty bottles-not on it now
Zonegran restarted
Patient is on clobazam
Patient is on Briviact
MRI of the brain ordered
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
# Pancytopenia-appreciate hematology input. Clinical concern is either infection or medication related especially low platelets with valproic acid And anemia secondary to acute illness continue to follow CBC
# Anxiety and depression-
Continue risperidone-was on 2 mg at bedtime as outpatient currently on 0.5 mg daily and 0.5 mg twice daily as needed
Wellbutrin on hold
Effexor restarted
# Smoker- cessation counselling when stable. Nicotine patch
# GI prophylaxis-PPI
# DVT prophylaxis-Lovenox
# Full code
Discussed with RN
Discussed with patient's father and aunt at bedside
Discussed with speech therapy. Regular diet started
He was living by himself wit 12 year old son and moved with mom in [place] as his place was sold. Mom administers meds for pt. He has not had a SZ in 18 months.
He has a H/O B1 Def . He takes daily B1.
He has confusion at baseline, and not always clear when he talks. he is 'very slow' per mom. She states that he can be agitated after he has a seizure usually but he has not had a seizure in 18 months. She thinks that he may have messed up his
medicines while here, as she gives medicines to him twice a day.
Name of his neurologist. Dr.Carle De Leon , [facility] [phone]
He sees Kirby Owusu [facility]
Outpatient records reviewed
Total time spent on today's encounter was 52 minutes which included time spent in counseling the patient/family regarding diagnosis and treatment plan as listed above, goals of care, and symptom management. Case was discussed with nursing staff,
specialists, and care coordinators/case management. All labs and imaging personally reviewed by me. Remainder the time spent in detailed review of previous records, lab data, imaging, and other medical provider documentation.
Part of this note was created using voice recognition system. Occasional wrong word or��sound alike� substitutions may have inadvertently occurred due to the inherent limitations of voice recognition software. If noted kindly bring it to my
attention for correction.
Anticipated Discharge: > 48 hours
Subjective/Interval History
-
Date of Service: January 13, 2025
Objective Data
-
Labs:
Laboratory Results
01/13/25
05:23
WBC 4.4 L
Hgb 11.4 L
Hct 31.0 L
Plt Count 145 D
Sodium 134 L
Potassium 3.8
Chloride 102
Carbon Dioxide 28
BUN 13
Creatinine 0.5 L
Glucose 115 H
Calcium 8.6
Vital Signs:
Vital Signs
Temp Pulse Resp BP Pulse Ox
97.9 F 108 29 118/95 93
01/13/25 08:00 01/13/25 13:00 01/13/25 13:00 01/13/25 12:45 01/13/25 12:45
I&O
01/12/25 01/13/25 01/14/25
06:59 06:59 06:59
Intake Total 3030.4 / 3200.4 1880 / 1960 715 / 715
Output Total 3675 / 3675 2750 / 2750
Balance -644.6 / -474.6 -870 / -790 715 / 715
--- NOTE | 2025-01-13 14:08 | W.PN.UPDATE ---
Update Note
Progress Note Update
D/W Neuro
Pt coming off pf Precedex.
Will restart Depakote Op dose and watch CBC
--- NOTE | 2025-01-13 14:49 | PTCARENOTE ---
Report given to IMU RN.
--- NOTE | 2025-01-13 15:11 | CM ---
Wean FiO2, diet to regular, IV/Rocephin, PT Eval. Discharge POC: Therapy recommendation for SNF vs. HH PT/OT. Will await further eval. Patient from [place]. Father staying with sister in [facility]. Need to determine family plan for return to "[place] or stay in area for PT.
--- NOTE | 2025-01-13 15:15 | PTCARENOTE ---
Pt transported to 3346 via bed.Pt's own meds Clobazam and Fycompa counted and given to accepting RN.
--- NOTE | 2025-01-13 15:27 | PTCARENOTE ---
Addendum entered by Ita Stone RN 01/13/25 17:57:
PICC not flushing after patient arrived. VAT RN up to see patient and was able to get it to work. IVF continue as ordered.
Original Note:
Received patient on transfer from ICU via bed; patient sleeping but easily awakens. Patient's own meds (2 of them) brought over: Fycompa and Clobazam; meds counted with [employer]TER Anabell and placed in narcotic lock box. NSR on monitor, HR 78; POx 95% on 8L
midflow. D5LR infusing at 60ml/hr. Bed alarm in use for patient safety.
--- NOTE | 2025-01-13 15:39 | W.PN.UPDATE ---
Update Note
Progress Note Update
patient seen chart reviewed. discussed with nursing earlier this am when patient left icu. nursing reports he has been pretty calm all day and able to carry on somewhat of a conversation but still not entirely with it. i observed him talking to
the operating room coordinator this am and he did seem to engage . i returned to see him this afternoon, and he seemed to me less able to engage appropriately. i asked him simple questions but for the most part i did not get a coherent answer eg 'do you live in
[place] where [place]?' he was preoccupied with the suction wand and kept inserting it in his mouth and getting very little result. the one question he answered was 'did you get some sleep last night?' and the answer was 'NO' noted he had a
haldol prn this am at [address] law suggested stopping risperdal as it can lower the seizure threshhold. all antipsychotics first and second generation lower the seizure thresshold as can most of the antidep including effexor. for now will dc
the iv haldol prn as he can take po. will dc the am risperdal which could be sedating him and decreasing mentation. melatonin 5 mg q hs will check in w him tomorrow.
[2025-01-13] MEDS: EFFEXOR 50 MG PO (16:03)
--- NOTE | 2025-01-13 16:59 | W.PN.NEURO.1 ---
Today's Communication / Plan
-
.
Subjective/Objective
Subjective Data
Date of Service: January 13, 2025
Neurology follow-up note
24-hour events: tachycardic, afebrile. Continues to be on Precedex.
The patient has not been receiving Fycompa based on SEP.
Mr. Hernandez reports no complaints.
Labs: platelets�145.
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
PSH: right shoulder replacement, left shoulder repair
SH: active smoker
All: NKDA
ROS: Negative for headache, change in strength.
General: restrains are off.
Cardio: Regular rhythm. Extremities are without cyanosis or edema.
Neuro:
Mental Status: Awake, oriented to self, age, year. Poor attention and impaired comprehension. Follows simple requests. No hemineglect.
Cranial Nerves: Orthophoric primary gaze. Impaired saccadic pursuit. Pupils are equally round and reactive to light. No clear facial weakness. Hearing is preserved, edentulous dysarthria.
Motor: Moves all limbs within bed plane.
Reflexes: Limited exam due to restraints
Sensory: Unable due to poor attention
Coordination: No tremors myoclonic movement
Gait: deferred
Assessment and Plan:
I. Encephalopathy (infectious, hypoxic, toxic), significantly improved.
II. Medically refractory epilepsy. History of TBI
III. Pancytopenia, improved
- Seizure and aspiration precautions
- Continue thiamine, nicotine patch
- Brain MRI with and without gerson when able
- Continue Brivacetam 100 mg QD, Clobazam 20 mg QD, Zonegran 100 mg nightly and restart Depakote 500 mg BID.
- DVT prophylaxis.
- Please recall neurology service with acute findings of brain MRI.
- OP Neurology follow up.
I personally reviewed all radiology and labs along with past medical records pertinent to current medical problems. Total time spent in patient care is 35 minutes.
Thank you for allowing us to participate in the care of this patient. Please do not hesitate to contact us with any questions or concerns
Objective Data
Vital Signs
Temp Pulse Resp BP Pulse Ox
36.3 C 115 18 106/82 94
01/13/25 14:01 01/13/25 16:00 01/13/25 16:00 01/13/25 16:00 01/13/25 16:00
Lab Results
01/13/25 05:23
01/13/25 05:23
PT 12.5 Sec (11.4-14.6) 01/07/25 21:12
INR 0.89 01/07/25 21:12
APTT 36.2 Sec (23.4-35.0) H 01/07/25 21:12
Sodium 134 mmol/L (135-145) L 01/13/25 05:23
Potassium 3.8 mmol/L (3.5-5.1) 01/13/25 05:23
BUN 13 mg/dl (9-20) 01/13/25 05:23
Glucose 115 mg/dl (70-99) H 01/13/25 05:23
Calcium 8.6 mg/dl (8.4-10.2) 01/13/25 05:23
Phosphorus 2.3 mg/dl (2.5-4.5) L 01/10/25 03:52
Mcl-L-Hasxounvixu Pept 213 pg/ml 01/09/25 04:29
Vitamin B12 976 pg/ml (239-931) H 01/11/25 19:38
Ur Buprenorphine Negative (Negative) 01/08/25 00:01
Patient Allergies
No Known Allergies Allergy (Unverified 01/07/25 20:58)
Vital Signs and Labs
-
Vital Signs and Labs:
Vital Signs
Temp Pulse Resp BP Pulse Ox
36.4 C 103 21 141/89 93
01/13/25 19:00 01/13/25 22:00 01/13/25 22:00 01/13/25 22:00 01/13/25 22:00
Lab Results
01/13/25 05:23
01/13/25 05:23
PT 12.5 Sec (11.4-14.6) 01/07/25 21:12
INR 0.89 01/07/25 21:12
APTT 36.2 Sec (23.4-35.0) H 01/07/25 21:12
Sodium 134 mmol/L (135-145) L 01/13/25 05:23
Potassium 3.8 mmol/L (3.5-5.1) 01/13/25 05:23
BUN 13 mg/dl (9-20) 01/13/25 05:23
Glucose 115 mg/dl (70-99) H 01/13/25 05:23
Calcium 8.6 mg/dl (8.4-10.2) 01/13/25 05:23
Phosphorus 2.3 mg/dl (2.5-4.5) L 01/10/25 03:52
Vfv-C-Sgwzuylzwxh Pept 213 pg/ml 01/09/25 04:29
Vitamin B12 976 pg/ml (239-931) H 01/11/25 19:38
Ur Buprenorphine Negative (Negative) 01/08/25 00:01
Medications
-
Medications:
Generic Name Dose Route Start Last Admin
Trade Name Freq PRN Reason Stop Dose Admin
Albuterol/Ipratropium 3 ml 01/12/25 20:00 01/13/25 19:54
Ipratropium 0.5/Albuterol 3 Mg (3 Ml Ampul) INH 3 ml
R TID MICHELLE Administration
Protocol
Brivaracetam 100 mg 01/13/25 20:00 01/13/25 19:40
Brivaracetam 50 Mg Tablet PO 02/10/25 19:59 100 mg
BID MICHELLE Administration
Ceftriaxone Sodium 2,000 mg 01/11/25 18:00 01/13/25 17:05
Ceftriaxone 2,000 Mg/20 Ml Vial IV 2,000 mg
Q24H MICHELLE Administration
Dextrose 12.5 grams 01/11/25 19:00
Dextrose 50% (0.5 Grams/Ml) 50 Ml Syringe IV 02/08/25 18:59
[id number] PRN
hypoglycemia
Protocol
Divalproex Sodium 500 mg 01/13/25 20:00 01/13/25 19:39
Divalproex 500 Mg Delayed Release (12 Hr) Tablet PO 02/10/25 19:59 500 mg
BID MICHELLE Administration
Doxycycline Hyclate 100 mg 01/13/25 22:00 01/13/25 20:21
Doxycycline 100 Mg Capsule PO 100 mg
Q12H MICHELLE Administration
Enoxaparin Sodium 40 mg 01/12/25 18:00 01/13/25 17:05
Enoxaparin Sodium 40 Mg/0.4 Ml Syringe SC 02/09/25 17:59 40 mg
QPM MICHELLE Administration
Hydralazine HCl 5 mg 01/12/25 14:01 01/13/25 05:20
Hydralazine 20 Mg/Ml Vial IV 02/09/25 14:00 5 mg
Q6HPRN PRN Administration
SBP over 160 mm Hg
Dextrose/Lactated Ringer's 1,000 mls @ 60 mls/hr 01/12/25 13:00 01/13/25 08:05
D5lr IV 1,000 mls
.[id number] MICHELLE Administration
Melatonin 5 mg 01/13/25 22:00 01/13/25 20:22
Melatonin 5 Mg Tablet PO 02/10/25 21:59 5 mg
HS MICHELLE Administration
Nicotine 14 mg 01/08/25 19:10 01/13/25 10:35
Nicotine 14 Mg Patch TRANSDERM 02/05/25 19:09 14 mg
DAILY MICHELLE Administration
Perampanel [Fycompa] 0 mg 01/13/25 22:00 01/13/25 19:43
10 Mg Tablet - 1 PO 02/10/25 21:59 1 mg
Tablet (10mg) Po Hs HS MICHELLE Administration
Non-Formulary Item 1 0 mg 01/13/25 14:20 01/13/25 19:41
Unit (Clobazam 20 PO 02/05/25 21:59 1 mg
Mg Tablet 1 Tablet HS MICHELLE Administration
Po Nightly)
Pantoprazole Sodium 40 mg 01/14/25 08:00
Pantoprazole 40 Mg Delayed Release Tablet PO 02/11/25 07:59
DAILY MICHELLE
Patch Removal 0 patch 01/08/25 22:00 01/13/25 20:22
Remove Nicotine Patch REMOVE 02/05/25 21:59 1 patch
HS MICHELLE Administration
Polyethylene Glycol 17 grams 01/14/25 08:00
Polyethylene Glycol Powder 17 Grams Packet PO 02/11/25 07:59
DAILY MICHELLE
Risperidone 2 mg 01/13/25 22:00 01/13/25 20:22
Risperidone 2 Mg Tablet PO 02/10/25 21:59 2 mg
HS MICHELLE Administration
Risperidone 0.5 mg 01/13/25 14:22 01/13/25 19:40
Risperidone 0.5 Mg Tablet PO 02/10/25 14:21 0.5 mg
BIDPRN PRN Administration
agitation, use first
Sodium Chloride 0 flush 01/07/25 23:00
Sodium Chloride 0.9% (Flush) Syringe IV 02/04/25 22:59
PER PROTOCOL MICHELLE
Sodium Chloride 0 flush 01/12/25 17:55 01/13/25 17:11
0.9% Nacl Flush If Lactated Ringers Ivf Ordered IV 02/09/25 17:54 1 flush
BID@1755,1805 MICHELLE Administration
Sterile Water 20 ml 01/11/25 18:00 01/13/25 17:05
Sterile Water For Injection 20 Ml Vial IV 02/08/25 17:59 20 ml
Q24H MICHELLE Administration
Thiamine HCl 100 mg 01/12/25 08:00 01/13/25 09:19
Thiamine (100 Mg/Ml) 2 Ml Vial IV 01/14/25 08:01 100 mg
DAILY MICHELLE Administration
Venlafaxine HCl 50 mg 01/13/25 16:00 01/13/25 16:03
Venlafaxine 50 Mg Regular Release Tablet PO 02/10/25 15:59 50 mg
BID@0800,1600 MICHELLE Administration
Zonisamide 100 mg 01/13/25 22:00 01/13/25 20:22
Zonisamide 100 Mg Capsule PO 02/10/25 21:59 100 mg
HS MICHELLE Administration
Home Medications
-
Home Medications
bupropion HCl 200 mg tablet,12 hr sustained-release 400 mg PO DAILY Mental Health/Anxiety 01/07/25
clobazam 20 mg tablet 20 mg PO HS Seizures 01/07/25
divalproex 500 mg tablet,delayed release 500 mg PO BID Seizures 01/07/25
omeprazole 40 mg capsule,delayed release 40 mg PO DAILY Gastrointestinal Issue 01/07/25
perampanel 10 mg tablet (Fycompa) 10 mg PO HS Seizures 01/07/25
risperidone 2 mg tablet 2 mg PO HS Mental Health/Anxiety 01/07/25
venlafaxine 150 mg capsule,extended release 24 hr 150 mg PO DAILY Mental Health/Anxiety 01/07/25
zonisamide 100 mg capsule 100 mg PO HS Seizures 01/07/25
[2025-01-13] MEDS: FLUSH (NSS) 1 FLUSH IV ×2 (17:04→17:11)
[2025-01-13] MEDS: LOVENOX 40 MG SC (17:05)
[2025-01-13] MEDS: STERILE WATER FOR INJECTION 20 ML IV (17:05)
[2025-01-13] MEDS: ROCEPHIN 2000 MG IV (17:05)
--- NOTE | 2025-01-13 17:49 | PTCARENOTE ---
Addendum entered by Ita Stone RN 01/13/25 17:56:
POx 95% on 6L midflow. Patient denies SOB. BP 106/92. Dr Strauss updated.
Original Note:
Patient awake; self-suctioning frequently. Ox2 with bizarre conversation at times; cooperative after reassurance. HR then went to 120s-130s; EKG done per protocol. Dr Strauss made aware and picture of EKG sent to her via TT. She replied that she is
ordering a CTA of the chest.
--- NOTE | 2025-01-13 18:53 | PTCARENOTE ---
Patient taken to CT scan accompanied by this RN and PCT. TT sent to Dr Strauss to make her aware CTA done. Report given to oncoming RN.
[2025-01-13] MEDS: DEPAKOTE (12 HR RELEASE) 500 MG PO (19:39)
[2025-01-13] MEDS: RISPERDAL 0.5 MG PO (19:40)
[2025-01-13] MEDS: BRIVIACT 100 MG PO (19:40)
[2025-01-13] MEDS: NON-FORMULARY ITEM 1 MG PO ×2 (19:41→19:43)
[2025-01-13] MEDS: VIBRAMYCIN 100 MG PO (20:21)
[2025-01-13] MEDS: ZONEGRAN 100 MG PO (20:22)
[2025-01-13] MEDS: RISPERDAL 2 MG PO (20:22)
[2025-01-13] MEDS: MELATONIN 5 MG PO (20:22)
--- NOTE | 2025-01-13 20:49 | PTCARENOTE ---
ax3 forgetful confused,agitated. thinks the trash can is staring at him. removed trash can in site after reassuring him the trash can is an object . medicated with prn's. sinus. afebrile 94% on 6 liters
--- NOTE | 2025-01-13 23:01 | PTCARENOTE ---
Assumed care of Pt from RN. Pt appearing to be resting well. Respirations even unlabored, vitals stable at this time.
[2025-01-14] VITALS (18 sets, daily range): BP systolic 116–158; BP diastolic 81–108; PULSE 104; O2SAT 94; BMI 16.2
--- NOTE | 2025-01-14 01:49 | PTCARENOTE ---
received patient from previous RN. Patient can be forgetful and anxious at times. 6L midflow sating at 93%. D5 LR running at 50ml/hr. vital signs stable. call cuevas in reach.
[2025-01-14] MEDS: D5LR 1000 IV ×2 (03:55→19:44)
[2025-01-14 04:15] LABS: Hematocrit 30.1 % (39.0-52.0); Hemoglobin 10.9 g/dL (13.0-18.0); Mean Corp Hgb Conc. 36.2 g/dL (33.0-37.0); Mean Corpuscular Hgb 32.5 pg (27.0-31.0); Mean Corpuscular Volume 89.9 fL (80.0-94.0); Mean Platelet Volume 9.9 fL (7.4-10.4); Platelet Count 243 10^3/uL (130-400); Red Blood Cell Count 3.35 10^6/uL (4.70-6.10); White Blood Cell Count 6.5 10^3/uL (4.8-10.8)
[2025-01-14 04:37] LABS: Blood Urea Nitrogen 14 mg/dl (9-20); Calcium 8.7 mg/dl (8.4-10.2); Carbon Dioxide 24 mmol/L (22-30); Chloride 106 mmol/L (98-107); Estimated Creatinine Clearance 114 ml/min; Glucose 94 mg/dl (70-99); Potassium 3.9 mmol/L (3.5-5.1); Sodium 137 mmol/L (135-145); eGFR > 60.00
[2025-01-14] MEDS: DUONEB 3 ML INH (07:04)
--- NOTE | 2025-01-14 07:52 | W.PN.HOSP.TC ---
Today's Communication/Plan
-
MRI of the brain still pending
Wean oxygen as tolerated
Encourage incentive spirometry and Acapella
Add Mucinex
OK for tele
Assessment / Plan
Assessment / Plan
44-year-old male presented to ER for cough and congestion. He was weak and tired and had vomiting and diarrhea. Patient is from [place] and camping with family. He also had a tick on his body which was pulled out. Patient was initially placed
on supplemental oxygen and then intubated. History of seizures but has not had one in many years. Patient is a smoker and also uses marijuana.
He feels good
Cardiovascular system S1-S2 appreciated
Chest clear to auscultation
Abdomen soft and nontender
No pedal edema
Awake , alert and able to communicate, says he feels good.
# Acute hypoxic respiratory failure
VDRF
Possible pneumonia-chest x-ray initially shows concern for left upper lobe infiltrate which resolved with intubation. Current chest x-rays is concerning for bilateral interstitial and airspace disease throughout both lungs.
? COPD exacerbation
Initial gas pH 7.35/pCO2 47/PO2 236/bicarb 25.9
Blood culture sent from the ER-shows diphtheroids likely contaminant
Urine Legionella and strep pneumonia antigen-negative
Sedation with propofol, fentanyl
Continue doxycycline, cefepime changed to ceftriaxone
Status post Solu-Medrol for COPD exacerbation per pulmonary-now discontinued
Infectious disease and pulmonary consultations appreciated
Patient now extubated ->high flow oxygen-> Mid flow O2-> 4L
# Hypotension-I doubt this is septic shock this is likely secondary to medicines such as large dose of propofol. Patient has been off of Levophed and only required it for short duration. Remains stable hemodynamically
# TME/altered mental status-secondary to hypoxia. And also psychiatric illness elevated valproate level-repeat improved. History of seizures.
Neurology input noted-suspected encephalopathy
Head CT-no acute changes
Urine drug screen-Marijuana,
Valproate level was high at 169.
Patient is much better awake alert oriented able to communicate no. Off restraints.
Off Precedex
# Vomiting and diarrhea-none since admission
# Tick was retrieved from the body
Lyme serology neg
Infectious disease following
# Hyponatremia likely hypovolemic-Normalized
# History of seizures-patient is on clobazam, zonisamide, Perampanel, Depakote as outpatient
EEG- No SZ
Neuro following
Valproate level-169 on admission. Levels then improved patient restarted on valproate 500 mg IV every 12, discontinued as of 01/11/2025
Perampanel is non formulary-and patient brought in empty bottles-not on it now
Zonegran continued patient does 1 mg at bedtime
Patient is on clobazam he was on 20 mg at night as outpatient which is ordered here
Patient is on Briviact-started new here
Depakote outpatient dose restarted 01/15/2025 500 twice daily
MRI of the brain ordered-still pending
# TBI/brain damage from Seizures - Since age 11
# Pancytopenia-appreciate hematology input. Clinical concern is either infection or medication related especially low platelets with valproic acid And anemia secondary to acute illness continue to follow CBC. Watch while on Depakote
# Anxiety and depression
Continue risperidone-was on 2 mg at bedtime as outpatient currently on 0.5 mg daily and 0.5 mg twice daily as needed
Wellbutrin on hold
Effexor restarted
# Smoker- cessation counselling when stable. Nicotine patch
# GI prophylaxis-PPI
# DVT prophylaxis-Lovenox
# Full code
Discussed with RN
He was living by himself wit 12 year old son and moved with mom in Jul as his place was sold. Mom administers meds for pt. He has not had a SZ in 18 months.
He has a H/O B1 Def . He takes daily B1.
He has confusion at baseline, and not always clear when he talks. he is 'very slow' per mom. She states that he can be agitated after he has a seizure usually but he has not had a seizure in 18 months. She thinks that he may have messed up his
medicines while here, as she gives medicines to him twice a day.
Name of his neurologist. Dr.Carle De Leon , [facility] [phone]
He sees Kirby Owusu ENROLLMENT PROCESSOR
Total time spent on today's encounter was 52 minutes which included time spent in counseling the patient/family regarding diagnosis and treatment plan as listed above, goals of care, and symptom management. Case was discussed with nursing staff,
specialists, and care coordinators/case management. All labs and imaging personally reviewed by me. Remainder the time spent in detailed review of previous records, lab data, imaging, and other medical provider documentation.
Part of this note was created using voice recognition system. Occasional wrong word or��sound alike� substitutions may have inadvertently occurred due to the inherent limitations of voice recognition software. If noted kindly bring it to my
attention for correction.
Anticipated Discharge: 24 - 48 hours
Subjective/Interval History
-
Date of Service: January 14, 2025
Objective Data
-
Labs:
Laboratory Results
01/14/25
04:00
WBC 6.5
Hgb 10.9 L
Hct 30.1 L
Plt Count 243 D
Sodium 137
Potassium 3.9
Chloride 106
Carbon Dioxide 24
BUN 14
Creatinine 0.6 L
Glucose 94
Calcium 8.7
Vital Signs:
Vital Signs
Temp Pulse Resp BP Pulse Ox
97.7 F 88 15 143/81 96
01/14/25 07:30 01/14/25 07:06 01/14/25 07:06 01/14/25 02:00 01/14/25 07:06
I&O
01/13/25 01/14/25 01/15/25
06:59 06:59 06:59
Intake Total 1879 / 1959 775 / 775
Output Total 2750 / 2750 300 / 300
Balance -870 / -790 475 / 475
[2025-01-14] MEDS: BRIVIACT 100 MG PO ×2 (08:06→19:46)
[2025-01-14] MEDS: PROTONIX 40 MG PO (08:06)
[2025-01-14] MEDS: DEPAKOTE (12 HR RELEASE) 500 MG PO ×2 (08:06→19:46)
[2025-01-14] MEDS: EFFEXOR 50 MG PO ×2 (08:06→17:11)
[2025-01-14] MEDS: MIRALAX 17 GRAMS PO (08:07)
[2025-01-14] MEDS: NICODERM TRANSDERMAL TRANSDERM ×2 (08:07→17:15)
--- NOTE | 2025-01-14 09:41 | W.PN.PUL3 ---
Today's Communication / Plan
-
- Start Spiriva and Symbicort
- Outpatient pulmonary function testing
Assessment
-
Assessment: 44-year-old tobacco smoker male with a past medical history of seizure disorder who presented with slurred speech, weakness and shortness of breath for 3 days. Patient is from [place] and was camping with family here in [place]
for the past 3 days. Per documentation, the daughters had removed a tick from the patient on the day prior to arrival, however unclear if the tick was engorged or not. The patient has a known seizure disorder on several AEDs, and has not had
seizures in many years and he does not use illicit drugs although he does smoke marijuana. In the ER he initially was afebrile to 99.9 �F, pulse rate 124, respiratory rate 22, BP 113/86 and saturating 71% on room air. Patient had to be intubated
due to continued altered mental status for airway protection purposes. Initial labs showed leukopenia to 4.1, Hb 11.5, platelet count 57, 33% bands, serum sodium 126, urinalysis with no signs of UTI, and urine drug screen for marijuana +
benzodiazepines. Valproic acid level was drawn and found to be in toxic range at 169.2 ug/ml. Urine and blood cultures collected. Initial CXR showed suspected left upper lobe pneumonia. In the ER he was given a total of 1.5 L NS 0.9%, Zosyn,
DuoNebs and Tylenol. Given that he was intubated, he was admitted to the ICU for further care and Frame Wirer services consulted for additional management/recommendations.
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
Assessment and Plan:
#1. Acute respiratory failure with hypoxia + hypercapnia due to pneumonia requiring mechanical ventilation
- Extubated 01/10/2025, currently on room air
- Diffuse tree in bud nodules suggestive of infections vs aspiration
- Antibiotics management per ID service, currently on Rocephin and Doxycycline
#2. Suspect COPD/Emphysema with mild bronchospasm
- Continue Antibiotics. Longstanding smoking history with evidence of emphysema on imaging.
- Start Spiriva daily, Symbicort BID
- PFTs as outpatient for further work up
Other medical diagnoses:
- Seizure disorder
- H/o TBI
- Anxiety, depression
- H/o Long standing smoking
- Toxic metabolic encephalopathy
- Thrombocytopenia, felt to be related to valproic acid
Total time spent on this consultation/encounter _48___ minutes which includes review of history, physical exam, medications, laboratory data, personal review of imaging, extensive review of outpatient records, discussion with care team and
respiratory therapy.
Subjective Data
-
Date of Service:
Date of Service: January 14, 2025
Subjective:
Patient comfortably lying in bed in no acute distress. Cough significantly improved.
Review of Systems
Genitourinary: Other (All 14 systems reviewed and negative except as stated above in the history of present illness.)
Objective Data
Data Reviewed
Vital Signs / I&O / Oxygen:
Vital Signs
Temp Pulse Resp BP Pulse Ox
97.7 F 105 24 135/84 96
01/14/25 07:30 01/14/25 08:00 01/14/25 08:00 01/14/25 08:00 01/14/25 08:45
Intake and Output
01/13/25 01/14/25 01/15/25
06:59 06:59 06:59
Intake Total 0 / 1960 775 / 775
Output Total 2750 / 2750 300 / 300 400 / 400
Balance -870 / -790 475 / 475 -400 / -400
SaO2 [A/C] 97
SaO2 96
Nasal Cannula flow liters per 2
minute
Physical Exam
General: Comfortable
HEENT: Normocephalic
Cardiovascular: S1-S2
Respiratory: Wheeze (Faint end expiratory wheezing, prolonged expiration suspicious for underlying obstructive airway disease)
GI: Soft and Non Distended
Neurology: Awake and Alert
Skin: Warm
Labs/Micro/Reports
Lab Data
01/14/25 04:00
01/14/25 04:00
Microbiology
01/07/25 21:12 Blood/Venous Blood Culture - Final
Diptheroids
01/07/25 21:12 Blood/Venous Gram Stain - Final
01/07/25 21:12 Blood/Venous Blood Culture - Final
No Growth - Final Report
[2025-01-14] MEDS: SPIRIVA RESPIMAT 2.5 MCG 2 PUFF INH (10:00)
[2025-01-14] MEDS: SYMBICORT 160/4.5 MCG INHALER 2 PUFF INH ×2 (10:00→19:41)
[2025-01-14] MEDS: MUCINEX 600 MG PO ×2 (10:16→19:46)
[2025-01-14] MEDS: VIBRAMYCIN 100 MG PO ×2 (10:16→21:34)
[2025-01-14] MEDS: VITAMIN B1 100 MG PO (10:16)
[2025-01-14] MEDS: THERAGRAN 1 TABLET PO (10:16)
[2025-01-14] MEDS: LOPRESSOR 5 MG IV (10:16)
[2025-01-14 10:21] LABS: Vitamin D, 25-OH*** < 12.8 ng/mL (30-80)
--- NOTE | 2025-01-14 10:22 | W.PN.ID1 ---
Date of Service
Date of Service: January 14, 2025
Today's Communication
Tomorrow last day of antibiotics.
Assessment / Plan
# Pneumonia (Cough x 2 weeks)
# Change in mental status - resolving
# Possible tick exposure (pt denies)
# Fever - resolved
# Pancytopenia - improving
# s/p Hypoxemic respiratory failure, extubated, on HFNC
# Hyponatremia
# History of seizure disorder
# Cachexia
# Tobacco/marijuana use
-COVID/Flu neg
-Urine legionella, S. pneumo neg (not sensitive tests)
-UA neg
-CXR minimal LLL opacity
- Blood cx Diphtheroid = contaminant
- sputum yeast (not significant)
- Lyme screen negative
- Blood parasite smear negative
- Anaplasma and Ehrlichia PCR negative
- HIV negative
-Low suspicion for tick born illness.
-s/p cefepime (01/07 -01/11)
- Continue doxycycline (d6 of 7).
- Continue ceftriaxone (d4) through tomorrow.
�������������������
Chief Complaint
-: Pneumonia
Subjective / Review of Systems
Feels improved.
Vital Signs / Physical Exam
Vital Signs
Vital Signs
Temp Pulse Resp BP Pulse Ox
97.7 F 146 24 149/100 94
01/14/25 07:30 01/14/25 10:16 01/14/25 08:00 01/14/25 10:16 01/14/25 10:11
Physical Exam
Constitutional: Comfortable
Cardiovascular: Regular Rate and S1/S2
Pulmonary: Rales (bases)
Gastrointestinal: Soft, Non Tender and Non Distended
Extremities: Negative Edema
Neurological: AO x 3
Objective Data
Lab Data
Lab Results
01/14/25 04:00
01/14/25 04:00
PT 12.5 Sec (11.4-14.6) 01/07/25 21:12
INR 0.89 01/07/25 21:12
APTT 36.2 Sec (23.4-35.0) H 01/07/25 21:12
Estimated Creat Clear 114 ml/min 01/14/25 04:00
Lactic Acid 0.8 mmol/L (0.7-2.0) 01/08/25 15:19
Total Bilirubin Cancelled 01/10/25 07:54
AST Cancelled 01/10/25 07:54
ALT Cancelled 01/10/25 07:54
Alkaline Phosphatase Cancelled 01/10/25 07:54
Most recent labs reviewed.
Micro Results:
01/07/25 21:12 Blood Culture - Final
Blood/Venous Diptheroids
Gram Stain - Final
01/07/25 21:12 Blood Culture - Final
Blood/Venous No Growth - Final Report
01/08/25 13:56 Respiratory Culture - Final
Endotracheal Yeast
Gram Stain - Final
01/08/25 00:01 Urine Culture - Final
Urine NO GROWTH
01/08/25 13:18 Blood Parasites Smear - Final
Blood/Venous
01/08/25 10:00 Nasal Screen MRSA (PCR) - Final
Nose MRSA not detected - performed by PCR methodology.
01/08/25 00:23 Legionella Urinary Antigen - Final
Urine Negative for Legionella pneumophila Serogroup 1 antigen.
A negative result does not rule out the possiblity of
Legionella infection due to other serogroups or species of
Legionella. Clinical correlation is recommended.
Streptococcus pneumoniae Antigen (M - Final
Negative for Streptococcus pneumoniae antigen.
A negative result does not exclude infection with
Streptococcus pneumoniae. Clinical correlation is
recommended.
01/07/25 21:12 Influenza Types A & B (COURTNEY) - Final
Nasal Swab Negative for Influenza A & B, NAAT
Negative results must be combined with clinical observations
and patient history.
Nucleic Acid Amplification test (NAAT)performed on the
[employer] platform.
01/08/25 CXR: Minor opacity in the left lung base
01/08/25 AXR: Moderate fecal matter throughout the colon. No evidence of intestinal obstruction.
01/07/25 CXR: Probable left upper lobe pneumonia. Recommend follow-up imaging after treatment to rule out underlying mass.
01/07/25 CXR: Improved aeration in the left upper lobe. No convincing focal infiltrates. Findings suggesting mild diffuse pneumonitis and/or pulmonary interstitial edema.
01/07/25 CT head: No acute intracranial abnormality noted.
[2025-01-14 10:35] LABS: TSH Reflex To Free T4 4.25 uIU/ml (0.47-4.68)
--- NOTE | 2025-01-14 10:35 | PTCARENOTE ---
pt transferred to [facility] level of care. pt oob in chair with chair alarm. worked with PT. o2 off and sat 94 on room air. occasional moist cough. mild shortness of breath when ambulating. prn lopressor given per order for heart rate above 120.currently
sinus rythym on monitor with heart rate of 100. pt ate most of breakfast.incentive spirometry encouraged.
--- NOTE | 2025-01-14 13:28 | PN.CDI ---
CDI
- -
CDI:
Physician Documentation Request
Admit Date: 01/07/25 23:15
Dear Doctor Rica,
Clinical Indicators:
Patient admitted with acute hypoxic respiratory failure; lethargy, vomiting prior to admission.
01/13 Automatic Paint Sprayer Operator PN, '#Suspected left-sided CAP (?aspiration given his AMS)'
01/13 PN, 'Possible pneumonia-chest x-ray initially shows concern for left upper lobe infiltrate which resolved with intubation. Current chest x-rays is concerning for bilateral interstitial and airspace disease throughout both lungs.'
Antibiotic selection: Doxycycline 100 mg po q12h
Ceftriaxone 2000 mg IV q 24h
Based on the above, could you clarify further specificity regarding the known, suspected or likely type of pneumonia you are treating (recognizing the specific organism may not be known)?
Aspiration pneumonia (please specify if POA)
Gram negative Pneumonia (please specify if POA)
Other, please specify
Use of terms such as suspected, likely, concern for, or probable (associated with a specific diagnosis that is being evaluated, monitored, or treated as if it exists) are acceptable and can be coded in the inpatient setting, when documented at the
time of discharge.
Thank you,
EDGARD Crouch RN
CDI Specialist
available via tiger text
Please use your independent medical judgment in providing your response.
--- NOTE | 2025-01-14 16:01 | W.PN.UPDATE ---
Update Note
Progress Note Update
patient seen chart reviewed. mr daly is much improved compared to my visit with him yesterday afternoon. he was unable to engage in any goal directed conversation yesterday. today while he does have some issues w speech fluidity he was able to
talk to me about his illness, his family , his home near [facility]. we talked about his plan to drive home when he is released from w his father but only after he has stayed at '[facility] ' for a night or so to make sure he is okay.
his mood he says is good. i did tell him we had dc'ed his buproprion as it can lower the sz threshhold the most of all the psych meds he was taking. wrote it down for his father. he was anxious to be reassured we would be sending 'papers' to his
pcp or home with him to give to his pcp. psych will look in on him tomorrow
--- NOTE | 2025-01-14 16:32 | CM ---
Patient with Hx TBI with Dx PNA, TME. Room air. Receiving IVF, IV Abx. Per nurse; forgetful. PT/OT recommend HH.
Met with patient, patient's father Inocencio (ph [phone]) and his aunt Melia Lauren (ph [phone]);
the patient will be discharging to his Aunt Melia's house for 1 day and then departing with his father, his 12 yr old son, and his brother to travel home to [place] by car ([address] Father states someone is always present with the patient at
home.
Discussed need for HH for PT/OT with patient, father & aunt. Family provided [facility] in[facility] [phone]), and are aware that their nurse Anabell says patient will need to be seen by their MD and they will
evaluate him for home PT/OT.
Spoke with Anabell, Nurse [facility] Ow[facility] ([place] [phone], fax [phone]); she requests fax of d/c summary, med list, and PT/OT notes. Anabell says patient will need to be seen by their MD and they will evaluate him for home
PT/OT, as they are unsure if needed as he is not home bound.
Plan fax d/c summary, med list, and PT/OT notes to PCP Office at d/c.
Plan home with family.
[2025-01-14] MEDS: DRISDOL (VITAMIN D2) 50000 UNITS PO (17:11)
[2025-01-14] MEDS: STERILE WATER FOR INJECTION 20 ML IV (17:12)
[2025-01-14] MEDS: LOVENOX 40 MG SC (17:12)
[2025-01-14] MEDS: ROCEPHIN 2000 MG IV (17:12)
[2025-01-14] MEDS: FLUSH (NSS) IV ×2 (17:14→17:18)
[2025-01-14] MEDS: MELATONIN 5 MG PO (21:33)
[2025-01-14] MEDS: RISPERDAL 2 MG PO (21:34)
[2025-01-14] MEDS: ZONEGRAN 100 MG PO (21:34)
[2025-01-14] MEDS: NON-FORMULARY ITEM 20 MG PO (21:38)
[2025-01-14] MEDS: NON-FORMULARY ITEM 10 MG PO (21:38)
[2025-01-15] VITALS: BP 113/78
[2025-01-15 04:00] VITALS: BP 131/106
[2025-01-15 04:54] VITALS: BMI 16.1
[2025-01-15] MEDS: SYMBICORT 160/4.5 MCG INHALER 2 PUFF INH (07:36)
[2025-01-15] MEDS: SPIRIVA RESPIMAT 2.5 MCG 2 PUFF INH (07:36)
[2025-01-15 08:00] VITALS: BP 101/80
[2025-01-15] MEDS: MUCINEX 600 MG PO (08:02)
[2025-01-15] MEDS: EFFEXOR 50 MG PO (08:02)
[2025-01-15] MEDS: DEPAKOTE (12 HR RELEASE) 500 MG PO (08:02)
[2025-01-15] MEDS: VITAMIN D3 (cholecalciferol) 50 MCG PO (08:02)
[2025-01-15] MEDS: BRIVIACT 100 MG PO (08:02)
[2025-01-15] MEDS: THERAGRAN 1 TABLET PO (08:03)
[2025-01-15] MEDS: VITAMIN B1 100 MG PO (08:03)
[2025-01-15] MEDS: NICODERM TRANSDERMAL TRANSDERM (08:03)
[2025-01-15] MEDS: PROTONIX 40 MG PO (08:03)
[2025-01-15] MEDS: MIRALAX PO (08:05)
--- NOTE | 2025-01-15 08:31 | W.PN.ID1 ---
Date of Service
Date of Service: January 15, 2025
Today's Communication
Completing doxy and ceftriaxone this am.
ID will sign off.
Assessment / Plan
# Pneumonia (Cough x 2 weeks)
# Change in mental status - resolving
# Possible tick exposure (pt denies)
# Fever - resolved
# Pancytopenia - improving
# s/p Hypoxemic respiratory failure, extubated, on HFNC
# Hyponatremia
# History of seizure disorder
# Cachexia
# Tobacco/marijuana use
-COVID/Flu neg
-Urine legionella, S. pneumo neg (not sensitive tests)
-UA neg
-CXR minimal LLL opacity
- Blood cx Diphtheroid = contaminant
- sputum yeast (not significant)
- Lyme screen negative
- Blood parasite smear negative
- Anaplasma and Ehrlichia PCR negative
- HIV negative
-Low suspicion for tick born illness.
-s/p cefepime (01/07 -01/11)
- Can dc doxycycline and ceftriaxone after this am dose (7d total abx).
-ID will sign off.
�������������������
Chief Complaint
-: Pneumonia
Subjective / Review of Systems
Feels well. No cough. Wants to go home.
Vital Signs / Physical Exam
Vital Signs
Vital Signs
Temp Pulse Resp BP Pulse Ox
99.2 F 93 16 101/80 94
01/15/25 07:10 01/15/25 08:00 01/15/25 07:37 01/15/25 08:00 01/15/25 07:37
Physical Exam
Constitutional: No Acute Distress and Comfortable
Pulmonary: Clear
Gastrointestinal: Soft, Non Tender, Non Distended and Normal Bowel Sounds
Extremities: Negative Edema
Neurological: AO x 3
Objective Data
Lab Data
Lab Results
01/14/25 04:00
01/14/25 04:00
PT 12.5 Sec (11.4-14.6) 01/07/25 21:12
INR 0.89 01/07/25 21:12
APTT 36.2 Sec (23.4-35.0) H 01/07/25 21:12
Estimated Creat Clear 114 ml/min 01/14/25 04:00
Lactic Acid 0.8 mmol/L (0.7-2.0) 01/08/25 15:19
Total Bilirubin Cancelled 01/10/25 07:54
AST Cancelled 01/10/25 07:54
ALT Cancelled 01/10/25 07:54
Alkaline Phosphatase Cancelled 01/10/25 07:54
Most recent labs reviewed.
Micro Results:
01/07/25 21:12 Blood Culture - Final
Blood/Venous Diptheroids
Gram Stain - Final
01/07/25 21:12 Blood Culture - Final
Blood/Venous No Growth - Final Report
01/08/25 13:56 Respiratory Culture - Final
Endotracheal Yeast
Gram Stain - Final
01/08/25 00:01 Urine Culture - Final
Urine NO GROWTH
01/08/25 13:18 Blood Parasites Smear - Final
Blood/Venous
01/08/25 10:00 Nasal Screen MRSA (PCR) - Final
Nose MRSA not detected - performed by PCR methodology.
01/08/25 00:23 Legionella Urinary Antigen - Final
Urine Negative for Legionella pneumophila Serogroup 1 antigen.
A negative result does not rule out the possiblity of
Legionella infection due to other serogroups or species of
Legionella. Clinical correlation is recommended.
Streptococcus pneumoniae Antigen (M - Final
Negative for Streptococcus pneumoniae antigen.
A negative result does not exclude infection with
Streptococcus pneumoniae. Clinical correlation is
recommended.
01/07/25 21:12 Influenza Types A & B (COURTNEY) - Final
Nasal Swab Negative for Influenza A & B, NAAT
Negative results must be combined with clinical observations
and patient history.
Nucleic Acid Amplification test (NAAT)performed on the
[employer] platform.
01/08/25 CXR: Minor opacity in the left lung base
01/08/25 AXR: Moderate fecal matter throughout the colon. No evidence of intestinal obstruction.
01/07/25 CXR: Probable left upper lobe pneumonia. Recommend follow-up imaging after treatment to rule out underlying mass.
01/07/25 CXR: Improved aeration in the left upper lobe. No convincing focal infiltrates. Findings suggesting mild diffuse pneumonitis and/or pulmonary interstitial edema.
01/07/25 CT head: No acute intracranial abnormality noted.
Care Review
Plan reviewed with: Physician (Dr. Strauss)
[2025-01-15] MEDS: STERILE WATER FOR INJECTION 20 ML IV (10:20)
[2025-01-15] MEDS: VIBRAMYCIN 100 MG PO (10:20)
[2025-01-15] MEDS: ROCEPHIN 2000 MG IV (10:20)
--- NOTE | 2025-01-15 10:55 | W.PN.HOSP.TC ---
Addendum entered and electronically signed by Constanza Strauss MD 01/15/25 13:31:
Discussed with father-patient is back to baseline
Discussed with neurology-MRI discontinued as patient is back to baseline
Or follow-up care and med changes discussed with father
More than 30 minutes spent in discharge including
Final examination of the patient
Summarizing hospital stay
Instructions for continuing care to all relevant caregivers
Preparation of discharge records, prescriptions, and referral forms
Total time spent (in minutes): 40 min
Original Note:
Today's Communication/Plan
-
Await neurology rounds today
If okay will discharge home today.
Assessment / Plan
Assessment / Plan
44-year-old male presented to ER for cough and congestion. He was weak and tired and had vomiting and diarrhea. Patient is from [place] and camping with family. He also had a tick on his body which was pulled out. Patient was initially placed
on supplemental oxygen and then intubated. History of seizures but has not had one in many years. Patient is a smoker and also uses marijuana.
He feels good. wants to go home
Cardiovascular system S1-S2 appreciated
Chest few scattered wheezes
Abdomen soft and nontender
No pedal edema
Awake , alert and able to communicate, says he feels good.
# Acute hypoxic respiratory failure
Type of pneumonia unclear, was present on admission
VDRF
Possible pneumonia-chest x-ray initially shows concern for left upper lobe infiltrate which resolved with intubation. Current chest x-rays is concerning for bilateral interstitial and airspace disease throughout both lungs.
? COPD exacerbation
Initial gas pH 7.35/pCO2 47/PO2 236/bicarb 25.9
Blood culture sent from the ER-shows diphtheroids likely contaminant
Urine Legionella and strep pneumonia antigen-negative
Was on Sedation with propofol, fentanyl
Off AB after today.
Status post Solu-Medrol for COPD exacerbation per pulmonary-now discontinued
Infectious disease and pulmonary consultations appreciated
Patient now extubated ->high flow oxygen-> Mid flow O2-> 4L-> Off O2
# Hypotension-I doubt this is septic shock this is likely secondary to medicines such as large dose of propofol. Patient has been off of Levophed and only required it for short duration. Remains stable hemodynamically
# TME/altered mental status-secondary to hypoxia. And also psychiatric illness elevated valproate level-repeat improved. History of seizures.
Neurology input noted-suspected encephalopathy
Head CT-no acute changes
Urine drug screen-Marijuana,
Valproate level was high at 169.
Back to baseline.
# Vomiting and diarrhea-none since admission
# Tick was retrieved from the body
Lyme serology neg
Infectious disease following
# Hyponatremia likely hypovolemic-Normalized
# History of seizures-patient is on clobazam, zonisamide, Perampanel, Depakote as outpatient
EEG- No SZ
Neuro following
Valproate level-169 on admission. Levels then improved patient restarted on valproate 500 mg IV every 12, discontinued as of 01/11/2025
Perampanel is non formulary-and patient brought in empty bottles-not on it now
Zonegran continued patient does 1 mg at bedtime
Patient is on clobazam he was on 20 mg at night as outpatient which is ordered here
Patient is on Briviact-started new here
Depakote outpatient dose restarted 01/15/2025 500 twice daily
MRI of the brain ordered-still pending
Asked neuro if pt needs this before discharge
# Slight tachycardia-CTA negative. Possibly secondary to coming off of Precedex. Much better
# TBI/brain damage from Seizures - Since age 11
# Pancytopenia-appreciate hematology input. Clinical concern is either infection or medication related especially low platelets with valproic acid And anemia secondary to acute illness continue to follow CBC. Watch while on Depakote
# Anxiety and depression
Continue risperidone-was on 2 mg at bedtime as outpatient currently on 0.5 mg daily and 0.5 mg twice daily as needed
Wellbutrin on hold
Effexor restarted
# Smoker- cessation counselling when stable. Nicotine patch
# GI prophylaxis-PPI
# DVT prophylaxis-Lovenox
# Full code
Discussed with RN
Patient wants to be discharged today. I have a text out to neurology to discuss this further.
Discussed with infectious disease. Okay for discharge
Discussed with pulmonary-okay for discharge
He was living by himself wit 12 year old son and moved with mom in Jul as his place was sold. Mom administers meds for pt. He has not had a SZ in 18 months.
He has a H/O B1 Def . He takes daily B1.
He has confusion at baseline, and not always clear when he talks. he is 'very slow' per mom. She states that he can be agitated after he has a seizure usually but he has not had a seizure in 18 months. She thinks that he may have messed up his
medicines while here, as she gives medicines to him twice a day.
Name of his neurologist. Dr.Carle De Leon , [facility] [phone]
He sees Kirby Owusu FOREIGN LANGUAGE PROFESSOR
Total time spent on today's encounter was 52 minutes which included time spent in counseling the patient/family regarding diagnosis and treatment plan as listed above, goals of care, and symptom management. Case was discussed with nursing staff,
specialists, and care coordinators/case management. All labs and imaging personally reviewed by me. Remainder the time spent in detailed review of previous records, lab data, imaging, and other medical provider documentation.
Part of this note was created using voice recognition system. Occasional wrong word or��sound alike� substitutions may have inadvertently occurred due to the inherent limitations of voice recognition software. If noted kindly bring it to my
attention for correction.
Anticipated Discharge: Today
Subjective/Interval History
-
Date of Service: January 15, 2025
Objective Data
-
Labs:
Laboratory Results
01/15/25
09:26
WBC Pending
Hgb Pending
Hct Pending
Plt Count Pending
Sodium Pending
Potassium Pending
Chloride Pending
Carbon Dioxide Pending
BUN Pending
Creatinine Pending
Glucose Pending
Calcium Pending
Vital Signs:
Vital Signs
Temp Pulse Resp BP Pulse Ox
99.2 F 93 16 101/80 94
01/15/25 07:10 01/15/25 08:00 01/15/25 07:37 01/15/25 08:00 01/15/25 08:34
I&O
01/14/25 01/15/25 01/16/25
06:59 06:59 06:59
Intake Total 775 / 775 800 / 800
Output Total 300 / 300 2200 / 2200 175 / 175
Balance 475 / 475 -1400 / -1400 -175 / -175
--- NOTE | 2025-01-15 11:49 | CM ---
Addendum entered by Lucrecia Hensley 01/15/25 12:06:
Patient is agreeable to home PT when he returns to home in [place]. Explained to patient that his PCP in [place] will need to order and identify home agency for Home Physical Therapy; PT notes included in CM Referral Form
Addendum entered by Lucrecia Hensley 01/15/25 12:01:
CM Referral Form printed and given to business unit director with instructions to fax to patient's PCP along with his discharge summary
Original Note:
Met with patient at bedside to discuss Discharge Plan
Local [facility] updated in chart; Attending notified
Spoke with patient's father via phone; he will transport patient home when cleared for discharge
Fax Discharge Summary and Case Management Referral Form to patient's PCP in [place]:
Dr. Kirby Owusu @ [facility]
--- NOTE | 2025-01-15 13:32 | W.DS.TRANS ---
Addendum entered and electronically signed by Constanza Strauss MD 01/15/25 16:22:
Dictation- [id number]
Original Note:
DC Summary - Spin Table Operator
-
Discharge Instructions:
Discharge Diagnosis/Procedures Mental status change
Elevated levels of valproic acid on admission
Pneumonia
Ventilator dependent respiratory failure
Seizures
Hyponatremia
Low magnesium levels
Emphysematous changes on CT
Vitamin D deficiency
Smoking
Diet As tolerated
Activity As tolerated
Driving Restrictions No driving
Blood Work cbc,cmp 1 week. Depakote level 1 week.
Others Tests Chest x-ray 4 to 6 weeks, lung function testing
as outpatient. Repeat urinalysis with your
primary physician's office.
MRI of the brain with and with out contrast
Instructions:
Stand-Alone Forms:
Changes to Home Medications: Yes
Discharge Medications:
DC Medications w/original date entered in [employer]
clobazam 20 mg tablet 20 mg PO HS Seizures 01/07/25
albuterol sulfate 90 mcg/actuation aerosol inhaler (Ventolin HFA) 2 puff inhalation Q6H PRN sob #8.5 grams 01/15/25
brivaracetam 50 mg tablet (Briviact) 100 mg (2 x 50 mg) PO BID Seizures #60 tabs 01/15/25
budesonide-formoterol HFA 160 mcg-4.5 mcg/actuation aerosol inhaler 2 puff inhalation R BID Lung/breathing issues #10.2 grams 01/15/25
cholecalciferol (vitamin D3) 50 mcg (2,000 unit) tablet 50 mcg PO DAILY defeciency #30 tabs 01/15/25
divalproex 500 mg tablet,delayed release 500 mg PO BID Seizures #60 tabs 01/15/25
guaifenesin 600 mg tablet, extended release 12 hr 600 mg PO Q12 Lung/breathing issues #12 tabs 01/15/25
nicotine 14 mg/24 hr daily transdermal patch 14 mg transdermal DAILY Smoking cessation #30 ea 01/15/25
omeprazole 40 mg capsule,delayed release 40 mg PO DAILY Gastrointestinal Issue #30 caps 01/15/25
polyethylene glycol 3350 17 gram oral powder packet 17 g PO DAILY Constipation #0 ea 01/15/25
risperidone 2 mg tablet 2 mg PO HS Mental Health/Anxiety #30 tabs 01/15/25
thiamine mononitrate (vit B1) 100 mg tablet 100 mg PO DAILY Supplement #20 tabs 01/15/25
tiotropium bromide 2.5 mcg/actuation mist for inhalation (Spiriva Respimat) 2 puff inhalation R DAILY Lung/breathing issues #4 grams 01/15/25
venlafaxine 50 mg tablet 50 mg PO BID@0800,1600 Depression #60 tabs 01/15/25
zonisamide 100 mg capsule 100 mg PO HS Seizures #30 caps 01/15/25
Home Medication Changes
Effexor dose reduced
Wellbutrin discontinued
Fycompa discontinued
Albuterol, Symbicort, guaifenesin, nicotine, MiraLAX, thiamine, Spiriva are new
Pending Results: No
--- NOTE | 2025-01-15 13:46 | W.PN.PUL3 ---
Today's Communication / Plan
-
- Patient can be discharged from pulmonary standpoint
- Continue Spiriva and Symbicort at discharge, patient will resume follow-up with his airworthiness safety inspector as outpatient
- Will need outpatient pulmonary function testing and 6-minute walk test assessment
Assessment
-
Assessment: 44-year-old tobacco smoker male with a past medical history of seizure disorder who presented with slurred speech, weakness and shortness of breath for 3 days. Patient is from [place] and was camping with family here in [place]
for the past 3 days. Per documentation, the daughters had removed a tick from the patient on the day prior to arrival, however unclear if the tick was engorged or not. The patient has a known seizure disorder on several AEDs, and has not had
seizures in many years and he does not use illicit drugs although he does smoke marijuana. In the ER he initially was afebrile to 99.9 �F, pulse rate 124, respiratory rate 22, BP 113/86 and saturating 71% on room air. Patient had to be intubated
due to continued altered mental status for airway protection purposes. Initial labs showed leukopenia to 4.1, Hb 11.5, platelet count 57, 33% bands, serum sodium 126, urinalysis with no signs of UTI, and urine drug screen for marijuana +
benzodiazepines. Valproic acid level was drawn and found to be in toxic range at 169.2 ug/ml. Urine and blood cultures collected. Initial CXR showed suspected left upper lobe pneumonia. In the ER he was given a total of 1.5 L NS 0.9%, Zosyn,
DuoNebs and Tylenol. Given that he was intubated, he was admitted to the ICU for further care and Electrical Electronics Technician services consulted for additional management/recommendations.
Chronic conditions HUMAN RESOURCES SPECIALIST: Seizure disorder, tobacco use disorder
Assessment and Plan:
#1. Acute respiratory failure with hypoxia + hypercapnia due to pneumonia requiring mechanical ventilation
- Extubated 01/10/2025, currently on room air
- Diffuse tree in bud nodules suggestive of infections vs aspiration
- Antibiotics management per ID service, currently on Rocephin and Doxycycline
#2. Suspect COPD/Emphysema with mild bronchospasm
- Continue Antibiotics. Longstanding smoking history with evidence of emphysema on imaging.
- Started Spiriva daily, Symbicort BID, feels symptomatically better since
- PFTs as outpatient for further work up
Other medical diagnoses:
- Seizure disorder
- H/o TBI
- Anxiety, depression
- H/o Long standing smoking
- Toxic metabolic encephalopathy
- Thrombocytopenia, felt to be related to valproic acid
Total time spent on this consultation/encounter _46___ minutes which includes review of history, physical exam, medications, laboratory data, personal review of imaging, extensive review of outpatient records, discussion with care team and
respiratory therapy.
Subjective Data
-
Date of Service:
Date of Service: January 15, 2025
Subjective:
Patient comfortably sitting in chair, on room air, feeling better after initiation of inhaler therapy.
Review of Systems
Genitourinary: Other (All 14 systems reviewed and negative except as stated above in the history of present illness.)
Objective Data
Data Reviewed
Vital Signs / I&O / Oxygen:
Vital Signs
Temp Pulse Resp BP Pulse Ox
97.7 F 93 16 101/80 94
01/15/25 11:20 01/15/25 08:00 01/15/25 07:37 01/15/25 08:00 01/15/25 08:34
Intake and Output
01/14/25 01/15/25 01/16/25
06:59 06:59 06:59
Intake Total 775 / 775 800 / 800
Output Total 300 / 300 2200 / 2200 175 / 175
Balance 475 / 475 -1400 / -1400 -175 / -175
SaO2 [A/C] 97
SaO2 94
Nasal Cannula flow liters per 2
minute
Physical Exam
General: Comfortable
HEENT: Normocephalic
Cardiovascular: S1-S2
Respiratory: Wheeze (Faint end expiratory wheezing, prolonged expiration suspicious for underlying obstructive airway disease)
GI: Soft and Non Distended
Neurology: Awake and Alert
Skin: Warm
Labs/Micro/Reports
Lab Data
01/15/25 09:26
01/15/25 09:26
Microbiology
01/07/25 21:12 Blood/Venous Blood Culture - Final
Diptheroids
01/07/25 21:12 Blood/Venous Gram Stain - Final
01/07/25 21:12 Blood/Venous Blood Culture - Final
No Growth - Final Report
[2025-01-15 16:00] VITALS: BP 147/103
== END 2025-01-15 16:37 | disposition home or self-care (01) | DRG 208 ==
LOC: IMU 23:15
PROVIDERS: Nurse Practitioner Primary Care; Psychiatry & Neurology Neurology; Registered Nurse; ADMITTING PHYSICIAN Internal Medicine; ATTENDING PHYSICIAN Hospitalist; CONSULT PHYSICIAN Internal Medicine Critical Care Medicine; CONSULT PHYSICIAN Internal Medicine Infectious Disease; CONSULT PHYSICIAN Psychiatry & Neurology Neurology; CONSULT PHYSICIAN Psychiatry & Neurology Psychiatry; EMERGENCY PHYSICIAN Emergency Medicine; OTHER PHYSICIAN Internal Medicine Hematology & Oncology
PROC: 5A1945Z Respiratory Ventilation, 24-96 Consecutive Hours (ICD-10-PCS; 2025-01-07)
DX: J18.9 Pneumonia, unspecified organism (principal); J96.01 Acute respiratory failure with hypoxia; G92.8 Other toxic encephalopathy; D61.811 Other drug-induced pancytopenia; E87.1 Hypo-osmolality and hyponatremia; J44.1 Chronic obstructive pulmonary disease with (acute) exacerbation; J44.0 Chronic obstructive pulmonary disease with (acute) lower respiratory infection; R64 Cachexia; Z68.1 Body mass index [BMI] 19.9 or less, adult; Z99.11 Dependence on respirator [ventilator] status; G40.909 Epilepsy, unspecified, not intractable, without status epilepticus; F17.200 Nicotine dependence, unspecified, uncomplicated; Z11.52 Encounter for screening for COVID-19; E86.0 Dehydration; F32.A Depression, unspecified; F41.9 Anxiety disorder, unspecified; E55.9 Vitamin D deficiency, unspecified
CPT/HCPCS: 31500; 36600; 70450; 71045; 71275; 74018; 80048; 80053; 80164; 80306; 80307; 81003; 81015; 82010; 82140; 82248; 82306; 82330; 82550; 82607; 82728; 82805; 82962; 83010; 83036; 83605; 83615; 83735; 83880; 83930; 83935; 84100; 84132; 84300; 84302; 84443; 84478; 85025; 85027; 85045; 85384; 85610; 85730; 86618; 87015; 87040; 87070; 87086; 87205; 87207; 87389; 87449; 87502; 87641; 87811; 87899; 92526; 92610; 93005; 94002; 94003; 94640; 95708; 95816; 96365; 96375; 97163; 97167; 97530; 97535; 99291; J2358; Q9967